=== PATIENT | male | born 1975 ===

== ENCOUNTER 2024-03-29 10:43 | Emergency (ER) | payer MEDICARE, MEDICAID, SELFPAY ==
[2024-03-29] VITALS (7 sets, daily range): BP systolic 110–159; BP diastolic 48–65; PULSE 69–82; RESP 12–20; TEMP 36.4–36.6; O2SAT 95–99; BMI 44.2
--- NOTE | ~2024-03-29 | XR_ITS ---
EXAMINATION: XR CHEST 2:29 PM CLINICAL INFORMATION: Chest pain at physical therapy COMPARISON: None available. TECHNIQUE: AP portable view of the chest was obtained. FINDINGS: No significant abnormality is noted involving the heart, lungs, mediastinum, bony thorax or soft tissues. XR/XR chest 1V IMPRESSION: Unremarkable examination.
--- NOTE | 2024-03-29 10:44 | ECG_ITS ---
Test Reason : chest pain Blood Pressure : / mmHG Vent. Rate : 084 BPM Atrial Rate : 084 BPM P-R Int : 166 ms QRS Dur : 078 ms QT Int : 368 ms P-R-T Axes : 057 -38 058 degrees QTc Int : 434 ms Normal sinus rhythm Left axis deviation Pulmonary disease pattern Septal infarct , age undetermined Abnormal ECG No previous ECGs available Referred By: Generic ED Physician Electronically Signed By:ANDREW LANGE MD
--- NOTE | 2024-03-29 11:04 | PC.NURSE ---
Pt comes to ED today straight from PT. States he began to experience chest pain 2/10 that radiated to his epigastric area. Pt reports feeling better now that he is resting on the stretcher. VSS, A&Ox3, afebrile, skin is warm and dry. Breaths are slow even and unlabored. Awaiting orders. at bedside.
--- NOTE | 2024-03-29 11:35 | PC.NURSE ---
This RN and RODNEY Dickinson attempted to draw blood labs and place IV access. Pt reports highly anxious regrading needles and this was observed at this time. IV access attempted to R hand but unsuccessful. Blood draw attempted to L hand by Wyatt Dickinson, (+) flash but no flow. Pt expressed he was too anxious to for another attempt and requests to stop at this time.
--- NOTE | 2024-03-29 11:39 | MHC.EDTECH ---
This tech along with RN attempted to draw blood from this pt. RN and tech both attempted once and was unsuccessful. Pt the stated I do not want to attempt again right now, giving blood makes me nervous. RN and tech respected pt wishes and stated they would check back later to see if the pt was willing to try again.
--- OUTSIDE RECORDS SUMMARY | 2024-03-29 11:58 | XMS_ITS | Continuity of Care Document ---
Author Organization [facility] Address [address] [place] [id number]- Care Team Providers Care Management Coordinator Name Role Phone Juan Mondragon DO Primary Care Physician Encounter [facility] [place] Date(s): 07/12/23 - 09/04/23 [facility] [address] [place] [id number] Attending Physician: Nazia Sandoval MD Admitting Physician: Nazia Sandoval MD Referring Physician: Juan Mondragon DO Allergies, Adverse Reactions, Alerts Substance Reaction Severity Status doxycycline Rash Active vancomycin Persistent Severe Active Immunizations Given and Recorded Vaccine Date Status Refusal Reason influenza virus vaccine, inactivated 07/08/23 Give n influenza virus vaccine, inactivated 06/24/21 Ross rded influenza virus vaccine, inactivated 06/03/20 Ross rded influenza virus vaccine, inactivated 06/19/19 Ross rded influenza virus vaccine, inactivated 12/17/14 Ross rded influenza virus vaccine, inactivated 09/14/13 Ross rded SARS-CoV-2 (COVID-19) mRNA-1273 vaccine 03/12/22 R ecorded SARS-CoV-2 (COVID-19) mRNA-1273 vaccine 07/09/21 R ecorded SARS-CoV-2 (COVID-19) mRNA-1273 vaccine 12/02/20 R ecorded SARS-CoV-2 (COVID-19) mRNA-1273 vaccine 11/04/20 R ecorded Medications acetaminophen 325 mg oral tablet 650 mg, By Mouth, Every 4 hours, PRN, Temperature Greater than 100.5, Refills 0, Maintenance, Pain , Mild, 07/28/23 16:59:00 EST, Partial fill upon patient request if the prescription is for a schedule II opioid drug. Start Date: 07/28/23 Status: Ordered aspirin 81 mg oral delayed release tablet 81 mg, By Mouth, Daily, # 90 tablet, Refills 0, Tot. Refills 0, Maintenance, 04/15/22 12:39:00 EDT,Route to Pharmacy Electronically, [facility], Partial fill upon patient request if the prescription is for a schedule II opioid drug., 18... Start Date: 04/15/22 Status: Ordered atorvastatin 80 mg oral tablet 1 tablet = 80 mg, By Mouth, Daily, # 90 tablet, 0 Refills, Maintenance, 06/08/23 20:00:00 EDT, Tablet, Partial fill upon patient request if the prescription is for a schedule II opioid drug. Start Date: 06/08/23 Status: Ordered docusate sodium 100 mg oral capsule 1 capsule = 100 mg, By Mouth, 2 times a day, # 20 capsule, 0 Refills, Maintenance, 07/13/23 9:01:00EST, Capsule, [id number], Partial fill upon patient request if the prescription isfor a schedule II opioid drug., 182.88, cm, ... Start Date: 07/13/23 Stop Date: 07/23/23 Status: Ordered Enoxaparin 0.4 mL = 40 mg, Subcutaneous Injection, 2 times a day, 0 Refills, Maintenance, 07/28/23 16:59:00 EST, Injection, Partial fill upon patient request if the prescription is for a schedule II opioid drug. Start Date: 07/28/23 Status: Ordered gabapentin 300 mg oral capsule 300 mg, 1, capsule, By Mouth, 2 times a day, Refills 0, Maintenance, 03/21/22 21:08:00 EDT, Partialfill upon patient request if the prescription is for a schedule II opioid drug. Start Date: 03/21/22 Status: Ordered insulin lispro 100 u/ml subcutaneous injection 20-35 units, Subcutaneous Injection, 3 times a day before meals, << Sliding Scale Comments >> 100 - 149 20 units Call if less than 70 150 - 199 23 units 200 - 249 26 units 250 - 299 29 units 300 - 349 32 units 350 - 399 35 units... Start Date: 07/13/23 Status: Ordered Lantus Inj 0.75 mL = 75 units, Subcutaneous Injection, 2 times a day, 0 Refills, Maintenance, 07/28/23 16:58:00 EST, Injection, Partial fill upon patient request if the prescription is for a schedule II opioid drug. Start Date: 07/28/23 Status: Ordered metoprolol succinate 50 mg oral capsule, extended release 1 capsule = 50 mg, By Mouth, Daily, start on 04/16, # 90 capsule, 0 Refills, Maintenance, 04/15/22 12:40:00 EDT, ER Capsule, [facility], Partial fill upon patient request if the prescription is for a schedule II opioid drug., 183, cm, . Start Date: 04/15/22 Status: Ordered stump software release engineer stump software release engineer, See Instructions, # 1 each, Refills 0, Tot. Refills 0, Maintenance, Dx: left BKA, 09/01/23 10:10:00 EST, Supply Start Date: 09/01/23 Status: Ordered Problem List Condition Confirmation Course Effective Dates Status H ealth Status Informant Gram-positive bacteremia Confirmed Active Bacterial cellulitis Confirmed Active Constipation Confirmed Active CAD (coronary artery disease) Confirmed Active Diabetic foot ulcers Confirmed Active Diabetic foot ulcer Confirmed Active Fever Confirmed Active Hyperglycemia Confirmed Active Hyperglycemia due to diabetes mellitus Confirmed Active HTN (hypertension) Confirmed Active Hyponatremia Confirmed Active Diabetic foot infection Confirmed Active Lactic acid acidosis Confirmed Active STEMI (ST elevation myocardial infarction) Confirmed Active Foot osteomyelitis Confirmed Active Encounter for screening colonoscopy Confirmed Active Sepsis Confirmed Active Severe obesity Confirmed Active 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 Sex Patient Care team information Care Team Personnel Name: Matilda Lowe RN Position: [facility] RN Member Role: Primary Care Nurse Name: Ghazal Ta RN Position: [facility] RN Member Role: Primary Care Nurse Name: Lima Bennett RN Position: [facility] RN Member Role: Primary Care Nurse Name: Karen Farias RN Position: [facility] RN Member Role: Primary Care Nurse Name: Akil Zelaya RN Position: [facility] RN Member Role: Primary Care Nurse Name: Agnes Mccann RN Position: [facility] RN Member Role: Primary Care Nurse Name: Roseann Sullivan RN Position: [facility] RN Member Role: Primary Care Nurse Name: Ebony Victoria NP Position: [facility] Associate Professional Member Role: Lifetime Consulting Provider Address: Address: [address] [place] [address]- Name: Rosalba Ugalde RN Position: S RN Member Role: Primary Care Nurse Name: Juan Mondragon DO Position: [facility] Physician (General Medicine) Member Role: PCP Address: Address: [address] [place] [address]- Name: Eva Holguin Position: [facility] RN Member Role: Primary Care Nurse Name: Federico Conroy RN Position: [facility] RN Member Role: Primary Care Nurse Name: Flori Lilly RN Position: [facility] RN Member Role: Primary Care Nurse Name: Joseline Malin RN Position: [facility] RN Member Role: Primary Care Nurse Name: Madeline Wren RN Position: [facility] RN Member Role: Primary Care Nurse Name: Carmen Gates RN Position: [facility] RN Member Role: Primary Care Nurse Name: Autumn Montgomery RN Position: [facility] RN Member Role: Primary Care Nurse Name: Brittny Luna RN Position: [facility] RN Member Role: Primary Care Nurse Name: Selena Reeves RN Position: S RN Member Role: Primary Care Nurse Care Team Related Persons Name: GABBIE KUO Address: [address] [place] [address] Name: BRANDI KUO
--- OUTSIDE RECORDS SUMMARY | 2024-03-29 11:58 | XMS_ITS | Continuity of Care Document ---
Author Organization [facility] Address [address] [place] [id number]- Care Team Providers Care Front Office Spec Name Role Phone Alanna Juan MENDEZ Primary Care Physician ( [phone] Encounter [facility] Date(s): 10/28/23 - 11/27/23 [facility] [address] [place] [id number]- [place] Allergies, Adverse Reactions, Alerts Substance Reaction Severity [...] opioid drug. Start Date: 07/28/23 Status: Ordered adaptic nonadherent dressing adaptic nonadherent dressing, See Instructions, # 1 each, Refills 0, Tot. Refills 0, Maintenance, place over left leg wound, apply triple antibiotic ointment and dressing daily, 10/12/23 8:30:00 EST,Supply, 182, cm, 10/12/23 8:16:00 EST, Height, 136.... Start Date: 10/12/23 Status: Ordered aspirin 81 mg oral delayed release tablet 81 mg, By Mouth, Daily, # 90 tablet, Refills 0, Tot. Refills 0, Maintenance, 04/15/22 12:39:00 EDT,Route to Pharmacy Electronically, [facility], Partial fill upon patient request [...] capsule, 0 Refills, Maintenance, 07/13/23 9:01:00EST, Capsule, [id number], Partial fill upon patient request if the [...] opioid drug. Start Date: 07/28/23 Status: Ordered left leg prosthesis left leg prosthesis, See Instructions, # 1 each, Refills 0, Tot. Refills 0, Maintenance, Dx: left BKA, K3, 09/14/23 9:58:00 EST, Supply Start Date: 09/14/23 Status: Ordered metoprolol succinate 50 mg oral capsule, extended release 1 capsule = 50 mg, By Mouth, Daily, start on 04/16, # 90 capsule, 0 Refills, Maintenance, 04/15/22 12:40:00 EDT, ER Capsule, [facility], Partial fill upon patient request if the prescription is for a schedule II opioid drug., 183, cm, ... Start Date: 04/15/22 Status: Ordered physical therapy physical therapy, See Instructions, # 1 each, Refills 0, Tot. 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 Sex Patient Care team information Care Team Personnel Name: Matilda Lowe RN Position: [facility] RN Member Role: Primary Care Nurse Name: Ghazal Ta RN Position: [facility] RN Member Role: Primary Care Nurse Name: Lima Bennett RN Position: S RN Member Role: Primary Care Nurse Name: Karen Farias RN Position: [facility] RN Member Role: Primary Care Nurse Name: Akil Zelaya RN Position: [facility] RN Member Role: Primary Care Nurse Name: Agnes Mccann RN Position: [facility] RN Member Role: Primary Care Nurse Name: Roseann Sullivan RN Position: [facility] RN Member Role: Primary Care Nurse Name: Ebony Victoria NP Position: [facility] Associate Professional Member Role: Lifetime Consulting Provider Address: Address: [address] [place] [id number] Name: Rosalba Ugalde RN Position: [facility] RN Member Role: Primary Care Nurse Name: Juan Mondragon DO Position: [facility] Physician (General Medicine) Member Role: PCP Address: Address: [address] [place] [id number] Name: Eva Holguin Position: [facility] RN Member Role: Primary Care Nurse Name: Federico Conroy RN Position: [facility] RN Member Role: Primary Care Nurse Name: Flori Lilly RN Position: [facility] RN Member Role: Primary Care Nurse Name: Joseline Malin RN Position: [facility] RN Member Role: Primary Care Nurse Name: Madeline Wren RN Position: [facility] RN Member Role: Primary Care Nurse Name: Autumn Montgomery RN Position: [facility] RN Member Role: Primary Care Nurse Name: Brittny Luna RN Position: [facility] RN Member Role: Primary Care Nurse Name: Selena Reeves RN Position: [facility] RN Member Role: Primary Care Nurse Care Team Related Persons Name: GABBIE KUO Address: [address] [place] [address] UM Name: BRANDI KUO
--- OUTSIDE RECORDS SUMMARY | 2024-03-29 11:58 | XMS_ITS | Continuity of Care Document ---
Author Organization [facility] Address [address] [place] [id number]- Care Team Providers Care Roustabout Crew Pusher Name Role Phone Alanna MENDEZJuan Amparo Primary Care Physician Encounter [facility] [place] Date(s): 08/05/23 - 09/04/23 [facility] [address] [place] [id number] Attending Physician: Deb Barber Admitting Physician: Admtr, Deb Referring Physician: Admtr, Ar8 Allergies, Adverse Reactions, Alerts Substance Reaction Severity [...] Maintenance, 04/15/22 12:39:00 EDT,Route to Pharmacy Electronically, [facility], Partial fill upon patient request [...] capsule, 0 Refills, Maintenance, 07/13/23 9:01:00EST, Capsule, [id number], Partial fill upon patient request if the [...] Refills, Maintenance, 04/15/22 12:40:00 EDT, ER Capsule, [facility], Partial fill upon patient request if the prescription is for a schedule II opioid drug., 183, cm, .. Start Date: 04/15/22 Status: Ordered stump install and repair technician stump install and repair technician, See Instructions, # 1 each, Refills 0, [...] Team Personnel Name: Matilda Lowe RN Position: [facility] RN Member Role: Primary Care Nurse Name: Ghazal Ta RN Position: [facility] RN Member Role: Primary Care Nurse Name: Lima Bennett RN Position: [facility] RN Member Role: Primary Care Nurse Name: Karen Farias RN Position: [facility] RN Member Role: Primary Care Nurse Name: Akil Zelaya RN Position: [facility] RN Member Role: Primary Care Nurse Name: Agnes Mccann RN Position: S RN Member Role: Primary Care Nurse Name: Roseann Sullivan RN Position: S RN Member Role: Primary Care Nurse Name: Ebony Victoria NP Position: [facility] Associate Professional Member Role: Lifetime Consulting Provider Address: Address: [address] [place] [address]- Name: Rosalba Ugalde RN Position: S RN Member Role: Primary Care Nurse Name: Juan Mondragon DO Position: [facility] Physician (General Medicine) Member Role: PCP Address: Address: [address] [place] [address]- Name: Eva Holguin Position: S RN Member Role: Primary Care Nurse Name: Federico Conroy RN Position: [facility] RN Member Role: Primary Care Nurse Name: Flori Lilly RN Position: [facility] RN Member Role: Primary Care Nurse Name: Joseline Malin RN Position: [facility] RN Member Role: Primary Care Nurse Name: Madeline Wren RN Position: [facility] RN Member Role: Primary Care Nurse Name: Carmen Gates RN Position: [facility] RN Member Role: Primary Care Nurse Name: Autumn Montgomery RN Position: S RN Member Role: Primary Care Nurse Name: Brittny Luna RN Position: [facility] RN Member Role: Primary Care Nurse Name: Selena Reeves RN Position: S RN Member Role: Primary Care Nurse Care Team Related Persons Name: GABBIE KUO Address: [address] [place] [address] Name: BRANDI KUO
--- OUTSIDE RECORDS SUMMARY | 2024-03-29 11:58 | XMS_ITS | Continuity of Care Document ---
Author Organization [facility] Address [address] [place] [id number]- Care Team Providers Care Investment Recovery Technician Name Role Phone Nate Mondragon DOchazbaldo Christensen Primary Care Physician ( [phone] Encounter [facility] Date(s): 10/12/23 - 10/19/23 [facility] [address] [place] [address]- Attending Physician: Not on Staff, Attending MD Allergies, Adverse Reactions, Alerts Substance Reaction Severity [...] Maintenance, 04/15/22 12:39:00 EDT,Route to Pharmacy Electronically, [facility], Partial fill upon patient request [...] capsule, 0 Refills, Maintenance, 07/13/23 9:01:00EST, Capsule, [facility][id number], Partial fill upon patient request if the [...] Refills, Maintenance, 04/15/22 12:40:00 EDT, ER Capsule, [facility], Partial fill upon patient request if the prescription is for a schedule II opioid drug., 183, cm, ... Start Date: 04/15/22 Status: Ordered physical therapy physical therapy, See Instructions, # 1 each, Refills 0, Tot. Refills 0, Maintenance, left BKA, gait and balance training using prosthesis, 09/14/23 9:58:00 EST, Supply Start Date: 09/14/23 Status: Ordered stump american studies professor stump american studies professor, See Instructions, # 1 each, Refills 0, [...] T2DM (type 2 diabetes mellitus) Confirmed Active Vital Signs Most recent to oldest [Reference Range]: 1 Height 182 cm (10/12/23 8:16 AM) Weight 91.81 kg (10/12/23 8:16 AM) Oxygen Saturation [94-100 %] 97 % (10/12/23 8:16 AM) Pulse Rate [55-90 bpm] 71 bpm (10/12/23 8:16 AM) Body Mass Index [18.5-24.99 kg/m2] 27.72 kg/m2 *H* (10/12/23 8:16 AM) Blood Pressure [90-138/55-84 mm Hg] 102/ 60mm Hg (10/12/23 8:16 AM) Mode of Delivery (Oxygen) Room air (10/12/23 8:16 AM) Blood pressure sites Arm, left (10/12/23 8:16 AM) Weight Obtained Via Patient/family state d (10/12/23 8:16 AM) Social History Social History Type Response Tobacco Use: pt denies. Sex Note * Sarah Leal: PERFORM, SIGN, VERIFY Event Display: Patient Education/Instruction Authored Date: [id number] [facility] *[facility] [address] Clinical Summary Name MARINO KUO Age 48 Years 1975 PCP Juan Mondragon DO PCP Visit Date 10/12/2023 08:04:00 Additional Instructions: Scheduled Appointments?? Future Appointments ?[facility] ?Phone:??--?Fax:??-- ?Appt. Date:??10/27/2023?8:15 AM ?Scheduled Provider:??Jim Nelson MD Follow-Up Instructions ?? With: Address: When: As Needed Diagnosis Medications: Please continue your medications until treatment is completed or stopped by your provider. Discuss any questions related to medications with your provider. New Medications [id number], [address], [place] [id number], [phone] Miscellaneous Rx (adaptic nonadherent dressing) place over left leg wound, apply triple antibiotic ointment and dressing daily. Refills: 0. Next Dose: Medications to Continue with No Changes These medications were not printed or sent to your pharmacy Acetaminophen (acetaminophen 325 mg oral tablet) 650 Milligram Oral every 4 hours as needed Pain , Mild. Temperature Greater than 100.5. Next Dose: Aspirin (aspirin 81 mg oral delayed release tablet) 81 Milligram Oral Daily. Refills: 0. Next Dose: Atorvastatin (atorvastatin 80 mg oral tablet) 1 tab(s) Oral Daily. Next Dose: Docusate (docusate sodium 100 mg oral capsule) 1 capsule Oral twice a day for 10 Days. Refills: 0. Next Dose: Enoxaparin 40 Milligram Subcutaneous Injection twice a day. Next Dose: Gabapentin (gabapentin 300 mg oral capsule) 1 capsule Oral twice a day. Next Dose: Insulin Glargine (Lantus Inj) 75 unit(s) Subcutaneous Injection twice a day. Next Dose: Insulin Lispro (insulin lispro 100 u/ml subcutaneous injection) 20-35 units Subcutaneous Injection 3 times a day before meals. << Sliding Scale Comments >> 100 - 149 20 units Call if less than 70 150 - 199 23 units 200 - 249 26 units 250 - 299 29 units 300 - 349 32 units 350 - 399 35 units Call if greater than 400 << Sliding Scale Comments >>. Next Dose: Metoprolol (metoprolol succinate 50 mg oral capsule, extended release) 1 capsule Oral Daily. start on 04/16. Refills: 0. Next Dose: Miscellaneous Rx (left leg prosthesis) Dx: left BKA, K3. Refills: 0. Next Dose: Miscellaneous Rx (physical therapy) left BKA, gait and balance training using prosthesis. Refills: 0. Next Dose: Miscellaneous Rx (stump american studies professor) Dx: left BKA. Refills: 0. Next Dose: Allergy Info:?? vancomycin; doxycycline Medications Given This Visit Future Orders ?No future orders Vital Signs Height 182 cm Weight 91.81 kg BMI 27.72 kg/m2 Blood Pressure 102 mm Hg/60 mm Hg Temperature Pulse Rate 71 bpm Respiratory Rate 02 Sat Mode of Delivery 97 %/Room air You can now view a summary of your hospital visit from the comfort of your home through a free online portal called [employer]. [employer] is a website that allows you to securely view your medical information including discharge summary, medications and follow-up visits. ??You can alsosend a secure electronic message to your doctor???s office to request appointments, renew medications or just ask a question. You can enroll at [email or web address] or register during your next office visit. Disclaimer:?? The information provided is of a general nature and is intended to be used in conjunction with the recommendations and advice of your health care practitioner. ??Every effort has been made to ensure that the information provided is accurate and complete at the time it is provided to you however, as your needs change, or, as new ??information becomes available, different or additional instructions may be required. If you have questions, please consult with your primary care provider or pharmacist, as appropriate. ??This information is not intended to serve as substitution for assessment and evaluation by a qualified health care provider. If you do not have a primary care provider, you may find a [facility] provider by calling [facility] Link at [phone]. [facility], in keeping with [facility] guidance, no longer requires face masks for staff, patientsor visitors in most situations. Similar to time spent indoors at other locations, there is the chance that you were exposed to respiratory viruses during your time with us (such as flu or COVID-19).? If you develop symptoms concerning for a viral respiratory infection, please seek testing (and treatment if indicated) from your medical provider or home test kit. For information about the plan of care including goals and instructions for your diagnosis, please see the patient education orders section of this document. Patient Education Materials?? The content of this educational material or handout may have been modified, supplemented, or adapted from its original content and format to support your individualized medical care. Patient Care team information Care Team Personnel Name: Matilda Lowe RN Position: [facility] RN Member Role: Primary Care Nurse Name: Ghazal Ta RN Position: [facility] RN Member Role: Primary Care Nurse Name: Lima Bennett RN Position: [facility] RN Member Role: Primary Care Nurse Name: Karen Farias RN Position: [facility] RN Member Role: Primary Care Nurse Name: Akil Zelaya RN Position: [facility] RN Member Role: Primary Care Nurse Name: Agnes Mccann RN Position: [facility] RN Member Role: Primary Care Nurse Name: Roseann Sullivan RN Position: [facility] RN Member Role: Primary Care Nurse Name: Ebony Victoria NP Position: [facility] Associate Professional Member Role: Lifetime Consulting Provider Address: Address: [address] [place] [address]- Name: Rosalba Ugalde RN Position: [facility] RN Member Role: Primary Care Nurse Name: Juan Mondragon DO Position: [facility] Physician (General Medicine) Member Role: PCP Address: Address: [address] [place] [address] Name: Eva Holguin Position: S RN Member Role: Primary Care Nurse Name: Federico Conroy RN Position: S RN Member Role: Primary Care Nurse Name: Flori Lilly RN Position: S RN Member Role: Primary Care Nurse Name: Joseline Malin RN Position: S RN Member Role: Primary Care Nurse Name: Madeline Wren RN Position: S RN Member Role: Primary Care Nurse Name: Autumn Montgomery RN Position: S RN Member Role: Primary Care Nurse Name: Brittny Luna RN Position: S RN Member Role: Primary Care Nurse Name: Selena Reeves RN Position: S RN Member Role: Primary Care Nurse Care Team Related Persons Name: GABBIE KUO Address: home [address] [place] [id number] Name: BRANDI KUO
--- OUTSIDE RECORDS SUMMARY | 2024-03-29 11:58 | XMS_ITS | Continuity of Care Document ---
Author Organization [facility] Address [address] [place] [address]- Care Team Providers Care Power Generation Equipment Repairer Name Role Phone Juan Mondragon DO Primary Care Physician ( [phone] [place] [facility] [place]): [place]23 - 09/08/23 [facility] [address] [place] [id number] Attending Physician: Shantelle DIALLO, Nan Means Admitting Physician: Shantelle DIALLO, Nan Means Referring Physician: Juan Mondragon DO Allergies, Adverse [...] Maintenance, 04/15/22 12:39:00 EDT,Route to Pharmacy Electronically, [facility], Partial fill upon patient request [...] capsule, 0 Refills, Maintenance, 07/13/23 9:01:00EST, Capsule, [facility][id number], Partial fill upon patient request if the [...] Refills, Maintenance, 04/15/22 12:40:00 EDT, ER Capsule, [facility], Partial fill upon patient request if the prescription is for a schedule II opioid drug., 183, cm, .. Start Date: 04/15/22 Status: Ordered stump mixer whipped topping stump mixer whipped topping, See Instructions, # 1 each, Refills 0, [...] oldest [Reference Range]: 1 Height 182 cm (09/01/23 9:53 AM) Weight 136.2 kg (09/01/23 9:53 AM) Oxygen Saturation [94-100 %] 97 % (09/01/23 9:53 AM) Pulse Rate [55-90 bpm] 71 bpm (09/01/23 9:53 AM) Body Mass Index [18.5-24.99 kg/m2] 41.12 kg/m2 *>HHI* (09/01/23 9:53 AM) Blood Pressure [90-138/55-84 mm Hg] 90/5 0mm Hg (09/01/23 9:53 AM) Mode of Delivery (Oxygen) Room air (09/01/23 9:53 AM) Blood pressure sites Arm, left (09/01/23 9:53 AM) Weight Obtained Via Patient/family state d (09/01/23 9:53 AM) Social History Social History Type Response Tobacco Use: pt denies. Sex Note * Jim Geller: PERFORM, SIGN, VERIFY Event Display: Patient Education/Instruction Authored Date: [id number] [facility] *[facility] [address] Clinical Summary Name MARINO KUO Age 48 Years 1975 PCP Juan Mondragon DO PCP Visit Date 09/01/2023 09:30:00 Additional Instructions: Scheduled Appointments?? Future Appointments ?*[facility],??[address] ?Phone:??--?Fax:??-- ?Appt. Date:??09/14/2023?9:30 AM ?Scheduled Provider:??Nan Pepper NP ?[facility] ?Phone:??--?Fax:??-- ?Appt. Date:??10/27/2023?8:15 AM ?Scheduled Provider:??Jim Nelson MD Follow-Up Instructions ?? With: Address: When: Nan Pepper NP Comments: 2??weeks with wound check Diagnosis Medications: Please continue your medications until treatment is completed or stopped by your provider. Discuss any questions related to medications with your provider. New Medications - Miscellaneous Rx (stump mixer whipped topping) Dx: left BKA. Refills: 0. Next Dose: Medications to Continue [...] start on 04/16. Refills: 0. Next Dose: Allergy Info:?? vancomycin; doxycycline Medications Given This Visit Future Orders ?No future orders Vital Signs Height 182 cm Weight 136.2 kg BMI 41.12 kg/m2 Blood Pressure 90 mm Hg/50 mm Hg Temperature Pulse Rate 71 bpm Respiratory Rate 02 Sat Mode of Delivery 97 %/Room air You can now view a summary of your hospital visit from the comfort of your home through a free online portal called [employer]. [employer] is a website that allows you to securely view your medical information including discharge summary, medications and follow-up visits. ??You can alsosend a secure electronic message to your doctor???s office to request appointments, renew medications or just ask a question. You can enroll at [email or web address] or register during your next office visit. [...] primary care provider, you may find a [facility] provider by calling [facility] Link at [phone]. [facility], in keeping with [facility] guidance, no longer requires face masks [...] Member Role: Lifetime Consulting Provider Address: Address: [address] [place] [address] Name: Rosalba Ugalde RN Position: [facility] RN Member Role: Primary Care Nurse Name: Juan Mondragon DO Position: [facility] Physician (General Medicine) Member Role: PCP Address: Address: [address] [place] [address] Name: Eva Holguin Position: [facility] RN Member Role: Primary Care Nurse Name: Federico Conroy RN Position: [facility] RN Member Role: Primary Care Nurse Name: Flori Lilly RN Position: [facility] RN Member Role: Primary Care Nurse Name: Joseline Malin RN Position: [facility] RN Member Role: Primary Care Nurse Name: Madeline Wren RN Position: [facility] RN Member Role: Primary Care Nurse Name: Carmen Gates RN Position: [facility] RN Member Role: Primary Care Nurse Name: Autumn Montgomery RN Position: [facility] RN Member Role: Primary Care Nurse Name: Brittny Luna RN Position: [facility] RN Member Role: Primary Care Nurse Name: Selena Reeves RN Position: S RN Member Role: Primary Care Nurse Care Team Related Persons Name: GABBIE KUO Address: [address] [address] Name: BRANDI KUO
--- OUTSIDE RECORDS SUMMARY | 2024-03-29 11:58 | XMS_ITS | Continuity of Care Document ---
Author Organization [facility] Address [address] [place] [address]- Care Team Providers Care Battery Repairer Name Role Phone Juan Mondragon DO Primary Care Physician ( [phone] Encounter 06/22/23 - 09/22/23 [facility] Visiting Nurse [facility] [address] [place] [address]- Discharge Disposition: GOALS [facility] Allergies, Adverse Reactions, Alerts Substance Reaction Severity [...] Maintenance, 04/15/22 12:39:00 EDT,Route to Pharmacy Electronically, [facility], Partial fill upon patient [...] capsule, 0 Refills, Maintenance, 07/13/23 9:01:00EST, Capsule, [facility][id number], Partial fill upon patient request if the [...] Refills, Maintenance, 04/15/22 12:40:00 EDT, ER Capsule, [facility], Partial fill upon patient request if the prescription is for a schedule II opioid drug., 183, cm, .. Start Date: 04/15/22 Status: Ordered physical therapy physical therapy, See Instructions, # 1 each, Refills 0, Tot. Refills 0, Maintenance, left BKA, gait and balance training using prosthesis, 09/14/23 9:58:00 EST, Supply Start Date: 09/14/23 Status: Ordered stump farmworker stump farmworker, See Instructions, # 1 each, Refills 0, [...] Team Personnel Name: Matilda Lowe RN Position: S RN Member Role: Primary Care Nurse Name: Ghazal Ta RN Position: S RN Member Role: Primary Care Nurse Name: Lima Bennett RN Position: S RN Member Role: Primary Care Nurse Name: Karen Farias RN Position: [facility] RN Member Role: Primary Care Nurse Name: Akil Zelaya RN Position: [facility] RN Member Role: Primary Care Nurse Name: Agnes Mccann RN Position: S RN Member Role: Primary Care Nurse Name: Roseann Sullivan RN Position: S RN Member Role: Primary Care Nurse Name: Ebony Victoria NP Position: [facility] Associate Professional Member Role: Lifetime Consulting Provider Address: Address: [address] [place], [place] [address] Name: Rosalba Ugalde RN Position: [facility] RN Member Role: Primary Care Nurse Name: Juan Mondragon DO Position: [facility] Physician (General Medicine) Member Role: PCP Address: Address: [address] [place], [place] [address] Name: Eva Holguin Position: [facility] RN Member Role: Primary Care Nurse Name: Federico Conroy RN Position: [facility] RN Member Role: Primary Care Nurse Name: Flori Lilly RN Position: [facility] RN Member Role: Primary Care Nurse Name: Joseline Malin RN Position: [facility] RN Member Role: Primary Care Nurse Name: Madeline Wren RN Position: [facility] RN Member Role: Primary Care Nurse Name: Autumn Montgomery RN Position: [facility] RN Member Role: Primary Care Nurse Name: Brittny Luna RN Position: [facility] RN Member Role: Primary Care Nurse Name: Selena Reeves RN Position: [facility] RN Member Role: Primary Care Nurse Care Team Related Persons Name: GABBIE KUO Address: home [address] [place] [address] UM Name: BRANDI KUO
--- OUTSIDE RECORDS SUMMARY | 2024-03-29 11:58 | XMS_ITS | Continuity of Care Document ---
Author Organization [facility] Address [address] [place] [address]- Care Team Providers Care Principal Librarian Name Role Phone Alanna MENDEZJuan Amparo Primary Care Physician [place] [facility] [place]17/23 - 07/17/[address] [address] Attending Physician: Not on Staff, Attending MD Admitting Physician: Not on Staff, Admitting MD Referring Physician: Not on Staff, Referring MD Allergies, Adverse Reactions, Alerts Substance Reaction [...] (COVID-19) mRNA-1273 vaccine 11/04/20 R ecorded Medications aspirin 81 mg oral delayed release tablet 81 mg, By Mouth, Daily, # 90 tablet, Refills 0, Tot. Refills 0, Maintenance, 04/15/22 12:39:00 EDT,Route to Pharmacy Electronically, [facility], Partial fill upon patient [...] capsule, 0 Refills, Maintenance, 07/13/23 9:01:00EST, Capsule, [facility][id number], Partial fill upon patient request if the prescription isfor a schedule II opioid drug., 182.88, cm, ... Start Date: 07/13/23 Stop Date: 07/23/23 Status: Ordered gabapentin 300 mg oral capsule [...] Start Date: 07/13/23 Status: Ordered Lantus Inj 0.42 mL = 42 units, Subcutaneous Injection, 2 times a day, 0 Refills, Maintenance, 07/13/23 9:01:00EST, Injection, Partial fill upon patient request if the prescription is for a schedule II opioid drug. Start Date: 07/13/23 Status: Ordered levoFLOXacin 750 mg oral tablet = 750 mg, By Mouth, Every 24 hours, for 6 week(s), # 42 tablet, 0 Refills, Acute 08/24/23 9:01:00 EST, 07/13/23 9:01:00 EST, Tablet, [facility][id number], Partial fill upon patient request if the prescription is for a schedule II opioid drug.,... Start Date: 07/13/23 Stop Date: 08/24/23 Status: Ordered metoprolol succinate 50 mg oral capsule, extended release 1 capsule = 50 mg, By Mouth, Daily, start on 04/16, # 90 capsule, 0 Refills, Maintenance, 04/15/22 12:40:00 EDT, ER Capsule, [facility], Partial fill upon patient request if the prescription is for a schedule II opioid drug., 183, cm, ... Start Date: 04/15/22 Status: Ordered oxyCODONE 5 mg oral tablet 5 mg, By Mouth, Every 4 hours, PRN, for 5 days, # 30 tablet, Refills 0, Tot. Refills 0, Acute 07/18/23 9:01:00 EST, Pain , Moderate, 07/13/23 9:01:00 EST, Route to Pharmacy Electronically, [facility] #[id number], Partial fill upon patient request... Start Date: 07/13/23 Stop Date: 07/18/23 Status: Ordered sodium hypochlorite 0.0125% topical solution See Instructions, Topically daily, # 473 mL, 0 Refills, Acute 08/22/23 23:59:00 EST, 07/13/23 9:01:00 EST, Solution, [facility] #[id number], Partial fill upon patient request if the prescriptionis for a schedule II opioid drug., Topically daily,... Start Date: 07/13/23 Stop Date: 08/22/23 Status: Ordered Tylenol 325 mg oral tablet 975 mg, By Mouth, Every 6 hours, Refills 0, Maintenance, 07/13/23 9:01:00 EST, Partial fill upon patient request if the prescription is for a schedule II opioid drug. 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 Sex Patient Care team information Care Team Personnel Name: Matilda Lowe RN Position: [facility] RN Member Role: Primary Care Nurse Name: Karen Farias RN Position: S RN Member Role: Primary Care Nurse Name: Akil Zelaya RN Position: [facility] RN Member Role: Primary Care Nurse Name: Agnes Mccann RN Position: [facility] RN Member Role: Primary Care Nurse Name: Roseann Sullivan RN Position: [facility] RN Member Role: Primary Care Nurse Name: Ebony Victoria NP Position: [facility] Associate Professional Member Role: Lifetime Consulting Provider Address: Address: [address] [place] [address] Name: Rosalba Ugalde RN Position: [facility] RN Member Role: Primary Care Nurse Name: Juan Mondragon DO Position: [facility] Physician (General Medicine) Member Role: PCP Address: Address: [address] [place] [address] Name: Eva Holguin Position: [facility] RN Member Role: Primary Care Nurse Name: Flori Lilly RN Position: [facility] RN Member Role: Primary Care Nurse Name: Madeline Wren RN Position: [facility] RN Member Role: Primary Care Nurse Name: Izabel Guy RN Position: [facility] RN Member Role: Primary Care Nurse Name: Carmen Gates RN Position: [facility] RN Member Role: Primary Care Nurse Name: Autumn Montgomery RN Position: [facility] RN Member Role: Primary Care Nurse Name: Brittny Luna RN Position: [facility] RN Member Role: Primary Care Nurse Care Team Related Persons Name: GABBIE KUO Address: [address] [place] [address] Name: BRANDI KUO
--- OUTSIDE RECORDS SUMMARY | 2024-03-29 11:58 | XMS_ITS | Continuity of Care Document ---
Author Organization [facility] Address [address] [place] [address]- Care Team Providers Care Sales And Retail Management Recruiter Name Role Phone Alanna MENDEZ Juan Amparo Primary Care Physician En[place] [facility] [place](s): 10/12/23 - 11/11/23 [facility] [address] [place] [address]- Allergies, Adverse Reactions, Alerts Substance Reaction Severity [...] Maintenance, 04/15/22 12:39:00 EDT,Route to Pharmacy Electronically, [facility], Partial fill upon patient [...] capsule, 0 Refills, Maintenance, 07/13/23 9:01:00EST, Capsule, [facility][id number], Partial fill upon patient request if the [...] Refills, Maintenance, 04/15/22 12:40:00 EDT, ER Capsule, [facility], Partial fill upon patient request if the prescription is for a schedule II opioid drug., 183, cm, ... Start Date: 04/15/22 Status: Ordered physical therapy physical therapy, See Instructions, # 1 each, Refills 0, Tot. Refills 0, Maintenance, left BKA, gait and balance training using prosthesis, 09/14/23 9:58:00 EST, Supply Start Date: 09/14/23 Status: Ordered stump procurement technician stump procurement technician, See Instructions, # 1 each, Refills [...] Team Personnel Name: Matilda Lowe RN Position: [facility] RN Member Role: Primary Care Nurse Name: Ghazal Ta RN Position: S RN Member Role: Primary Care Nurse Name: Lima Bennett RN Position: [facility] RN Member Role: Primary Care Nurse Name: Karen Farias RN Position: S RN Member Role: Primary Care Nurse Name: Akil Zelaya RN Position: [facility] RN Member Role: Primary Care Nurse Name: Agnes Mccann RN Position: [facility] RN Member Role: Primary Care Nurse Name: Roseann Sullivan RN Position: [facility] RN Member Role: Primary Care Nurse Name: Ebony Victoria NP Position: [facility] Associate Professional Member Role: Lifetime Consulting Provider Address: Address: [address] [place] [id number] Name: Rosalba Ugalde RN Position: [facility] RN Member Role: Primary Care Nurse Name: Juan Mondragon DO Position: [facility] Physician (General Medicine) Member Role: PCP Address: Address: [address] [place] [id number] Name: Eva Holguin Position: [facility] RN Member Role: Primary Care Nurse Name: Federico Conroy RN Position: [facility] RN Member Role: Primary Care Nurse Name: Flori Lilly RN Position: [facility] RN Member Role: Primary Care Nurse Name: Joseline Malin RN Position: [facility] RN Member Role: Primary Care Nurse Name: Madeline Wren RN Position: [facility] RN Member Role: Primary Care Nurse Name: Autumn Montgomery RN Position: [facility] RN Member Role: Primary Care Nurse Name: Brittny Luna RN Position: [facility] RN Member Role: Primary Care Nurse Name: Selena Reeves RN Position: [facility] RN Member Role: Primary Care Nurse Care Team Related Persons Name: GABBIE KUO Address: home [address] [place] [address] UM Name: BRANDI KUO
--- OUTSIDE RECORDS SUMMARY | 2024-03-29 11:59 | XMS_ITS | Continuity of Care Document ---
Author Organization [facility] Address [address] [place] [address]- Care Team Providers Care Auto Finance Sales Rep Name Role Phone Juan Mondragon DO Primary Care Physician Encounter [facility] [place] Date(s): 07/06/23 - 07/13/23 [facility] [address] [place], [place] [address] Attending Physician: Shila Carney NP Admitting Physician: Shila Carney NP Allergies, Adverse Reactions, Alerts Substance Reaction Severity [...] Maintenance, 04/15/22 12:39:00 EDT,Route to Pharmacy Electronically, [facility], Partial fill upon patient request [...] capsule, 0 Refills, Maintenance, 07/13/23 9:01:00EST, Capsule, [facility][id number], Partial fill upon patient request if the [...] 08/24/23 9:01:00 EST, 07/13/23 9:01:00 EST, Tablet, [facility][id number], Partial fill upon patient request if the prescription is for a schedule II opioid drug.,... Start Date: 07/13/23 Stop Date: 08/24/23 Status: Ordered metoprolol succinate 50 mg oral capsule, extended release 1 capsule = 50 mg, By Mouth, Daily, start on 04/16, # 90 capsule, 0 Refills, Maintenance, 04/15/22 12:40:00 EDT, ER Capsule, [facility], Partial fill upon patient request if the prescription is for a schedule II opioid drug., 183, cm, ... Start Date: 04/15/22 Status: Ordered oxyCODONE 5 mg oral tablet 5 mg, By Mouth, Every 4 hours, PRN, for 5 days, # 30 tablet, Refills 0, Tot. Refills 0, Acute 07/18/23 9:01:00 EST, Pain , Moderate, 07/13/23 9:01:00 EST, Route to Pharmacy Electronically, [facility] #[id number], Partial fill upon patient request... Start Date: 07/13/23 Stop Date: 07/18/23 Status: Ordered sodium hypochlorite 0.0125% topical solution See Instructions, Topically daily, # 473 mL, 0 Refills, Acute 08/22/23 23:59:00 EST, 07/13/23 9:01:00 EST, Solution, [facility] #[id number], Partial fill upon patient request if the [...] Condition Confirmation Course Effective Dates Status H ealt Status Informant Bacterial cellulitis Confirmed Active Constipation Confirmed Active Diabetic foot ulcers Confirmed Active Fever Confirmed Active Hyperglycemia due to diabetes mellitus Confirmed Active Hyponatremia Confirmed Active Diabetic foot infection Confirmed Active Lactic acid acidosis Confirmed Active STEMI (ST elevation myocardial infarction) Confirmed Active Encounter for screening colonoscopy Confirmed Active Severe obesity Confirmed Active 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 Sex Note * Jim Geller: PERFORM, SIGN, VERIFY Event Display: Patient Education/Instruction Authored Date: [id number] [facility] [address] Clinical Summary Name MARINO KUO Age 48 Years 1975 PCP Juan Mondragon DO PCP Visit Date 07/06/2023 09:13:00 Additional Instructions: Scheduled Appointments?? Future Appointments ?[facility]Center ?Phone:??--?Fax:??-- ?Appt. Date:??10/27/2023?8:00 AM ?Scheduled Provider:??Jim Nelson MD Follow-Up Instructions ?? With: Address: When: Shila Carney NP 01/20/2023 12:00 AM Comments: Admit patient today??diabetic foot infection with open wound?left foot ??Patient being admitted please cancel his office visit here for this Tuesday since he is going intothe hospital Diagnosis Medications: Please continue your medications until treatment is completed or stopped by your provider. Discuss any questions related to medications with your provider. Medications to Continue with No Changes These medications were not printed or sent to your pharmacy Aspirin (aspirin 81 mg oral delayed release tablet) 81 Milligram Oral Daily. Refills: 0. Next Dose: Atorvastatin (atorvastatin 80 mg oral tablet) 1 tab(s) Oral Daily. Next Dose: Gabapentin (gabapentin 300 mg oral capsule) 1 capsule Oral twice a day. Next Dose: Insulin Glargine (Lantus Inj) 36 unit(s) Subcutaneous Injection Daily at Bedtime. Next Dose: Insulin Glargine (Lantus Inj) 32 unit(s) Subcutaneous Injection Daily in the morning. Next Dose: Insulin Lispro 20-44 units Subcutaneous Injection 3 times a day before meals. << Sliding Scale Comments >> 80 - 129 20 units Call if less than 70 130 - 179 24 units 180 - 229 28 units 230 - 279 32 units 280 - 329 36 units 330 - 379 40 units 380 - 429 44 units Call if greater than 400 << Sliding Scale Comments >>. Next Dose: Metoprolol (metoprolol succinate 50 mg oral capsule, extended release) 1 capsule Oral Daily. start on 04/16. Refills: 0. Next Dose: Allergy Info:?? vancomycin; doxycycline Medications Given This Visit Future Orders ?No future orders Vital Signs Height 184 cm Weight 138.8 kg BMI 41 kg/m2 Blood Pressure 130 mm Hg/70 mm Hg Temperature Pulse Rate 85 bpm Respiratory Rate 02 Sat Mode of Delivery 98 %/ You can now view a summary of your hospital visit from the comfort of your home through a free online portal called [employer]. [employer] is a website that allows you to securely view your medical information including discharge summary, medications and follow-up visits. ??You can alsosend a secure electronic message to your doctor???s office to request appointments, renew medications or just ask a question. You can enroll at [email or web address] or register during your next office [...] primary care provider, you may find a [facility] provider by calling [facility] Link at [phone]. [facility], in keeping with [facility] guidance, no longer requires face masks for [...] Care Nurse Name: Akil Zelaya RN Position: [facility] RN Member Role: Primary Care Nurse Name: Agnes Mccann RN Position: S RN Member Role: Primary Care Nurse Name: Roseann Sullivan RN Position: S RN Member Role: Primary Care Nurse Name: Ebony Victoria NP Position: [facility] Associate Professional Member Role: Lifetime Consulting Provider Address: Address: [address] [place] [id number] Name: Rosalba Ugalde RN Position: [facility] RN Member Role: Primary Care Nurse Name: Juan Mondragon DO Position: [facility] Physician (General Medicine) Member Role: PCP Address: Address: [address] [place] [id number] Name: Eva Holguin Position: [facility] RN Member Role: Primary Care Nurse Name: Flori Lilly RN Position: [facility] RN Member Role: Primary Care Nurse Name: Madeline Wren RN Position: [facility] RN Member Role: Primary Care Nurse Name: Izabel Guy RN Position: [facility] RN Member Role: Primary Care Nurse Name: Carmen Gates RN Position: [facility] RN Member Role: Primary Care Nurse Name: Autumn Montgomery RN Position: [facility] RN Member Role: Primary Care Nurse Name: Brittny Luna RN Position: [facility] RN Member Role: Primary Care Nurse Care Team Related Persons Name: SHIELA GABBIE Address: home [address] [place] [address] UM Name: BRANDI KUO
--- OUTSIDE RECORDS SUMMARY | 2024-03-29 11:59 | XMS_ITS | Continuity of Care Document ---
Author Organization [facility] Address [address] [place] [address]- Care Team Providers Care Jigger Operator Name Role Phone Juan Mondragon DO Primary Care Physician Encounter [facility] Date(s): 08/10/22 - 09/09/22 [facility] [address] [place] [id number]- [place] Allergies, Adverse Reactions, Alerts Substance Reaction Severity Status vancomycin Persistent Severe Active Immunizations Given and Recorded Vaccine Date Status Refusal Reason SARS-CoV-2 (COVID-19) mRNA-1273 vaccine 03/12/22 R ecorded SARS-CoV-2 (COVID-19) mRNA-1273 vaccine 07/09/21 R ecorded SARS-CoV-2 (COVID-19) mRNA-1273 vaccine 12/02/20 R ecorded SARS-CoV-2 (COVID-19) mRNA-1273 vaccine 11/04/20 R ecorded influenza virus vaccine, inactivated 06/24/21 Ross rded influenza virus vaccine, inactivated 06/03/20 Ross rded influenza virus vaccine, inactivated 06/19/19 Ross rded influenza virus vaccine, inactivated 12/17/14 Ross rded influenza virus vaccine, inactivated 09/14/13 Ross rded Medications aspirin 81 mg oral delayed release tablet 81 mg, By Mouth, Daily, # 90 tablet, Refills 0, Tot. Refills 0, Maintenance, 04/15/22 12:39:00 EDT,Route to Pharmacy Electronically, [facility], Partial fill upon patient request if the prescription is for a schedule II opioid drug., 18... Start Date: 04/15/22 Status: Ordered atorvastatin 40 mg oral tablet 1 tablet = 40 mg, By Mouth, Daily at bedtime, please ask operations tech when to increase to 80mg dosegiven your recent transaminitis, # 90 tablet, 0 Refills, Maintenance, 04/15/22 12:39:00 EDT, Tablet, [facility], Partial fill upon patien... Start Date: 04/15/22 Status: Ordered gabapentin 300 mg oral capsule 300 mg, 1, capsule, By Mouth, 2 times a day, Refills 0, Maintenance, 03/21/22 21:08:00 EDT, Partialfill upon patient request if the prescription is for a schedule II opioid drug. Start Date: 03/21/22 Status: Ordered Insulin Glargine Inj 0.4 mL = 40 units, Subcutaneous Injection, 2 times a day, 0 Refills, Maintenance, 04/15/22 12:38:00EDT, Injection, Partial fill upon patient request if the prescription is for a schedule II opioid drug. Start Date: 04/15/22 Status: Ordered insulin lispro 100 units/mL injectable solution 25-50 units, Subcutaneous Injection, 3 times a day before meals, << Sliding Scale Comments >> 100 - 149 25 units Call if less than 70 150 - 199 30 units 200 - 249 35 units 250 - 299 40 units 300 - 349 45 units 350 - 399 50 units... Start Date: 04/15/22 Status: Ordered MetFORMIN (Eqv-Glucophage XR) 500 mg oral tablet, extended release TAKE 1 TABLET BY MOUTH TWICE DAILY Start Date: 03/21/22 Status: Ordered metoprolol succinate 50 mg oral capsule, extended release 1 capsule = 50 mg, By Mouth, Daily, start on 04/16, # 90 capsule, 0 Refills, Maintenance, 04/15/22 12:40:00 EDT, ER Capsule, [facility], Partial fill upon patient request if the prescription is for a schedule II opioid drug., 183, cm, ... Start Date: 04/15/22 Status: Ordered nystatin topical 153299 u/gm powder 1 application, Topically, 2 times a day, # 15 Gm, 0 Refills, Maintenance, 02/23/21 21:46:00 EDT, Powder, [facility][id number], Partial fill upon patient request if the prescription is for a schedule II opioid drug., 1 application Topically 2 ti... Start Date: 02/23/21 Status: Ordered Plavix 75 mg oral tablet 75 mg, 1, tablet, By Mouth, Daily, # 90 tablet, Refills 0, Tot. Refills 0, Maintenance, 04/15/22 12:39:00 EDT, Route to Pharmacy Electronically, [facility], Partial fill upon patient request if the prescription is for a schedule II opioi... Start Date: 04/15/22 Status: Ordered Problem List Condition Confirmation Course Effective Dates Status H ealth Status Informant Bacterial cellulitis Confirmed Active Diabetic foot ulcers Confirmed Active Fever Confirmed Active Hyperglycemia due to diabetes mellitus Confirmed Active Hyponatremia Confirmed Active Lactic acid acidosis Confirmed Active Severe obesity Confirmed Active Social History Social History Type Response Smoking Status Never (less than 100 in lifetime) entered on: 06/23/20 Sex Patient Care team information Care Team Personnel Name: Radha Amador RN Position: S RN Member Role: Primary Care Nurse Name: Annmarie Winn RN Position: S RN Member Role: Primary Care Nurse Name: Ebony Victoria NP Position: [facility] Associate Professional Member Role: Lifetime Consulting Provider Address: Address: [address] [place] [address]- Name: Dario Lopez RN Position: S RN Supv Member Role: Primary Care Nurse Name: Juan Mondragon DO Position: [facility] Physician (General Medicine) Member Role: PCP Address: Address: [address] [place] [address] Name: Madeline Wren RN Position: S RN Member Role: Primary Care Nurse Name: Safia Kilpatrick RN Position: S RN Supv Member Role: Primary Care Nurse Care Team Related Persons Name: GABBIE KUO Address: home [address] [place] [address] UM
--- OUTSIDE RECORDS SUMMARY | 2024-03-29 11:59 | XMS_ITS | Continuity of Care Document ---
Author Organization [facility] [place] Address [address] [place] [address]- Care Team Providers Care Regulatory Attorney Name Role Phone Alanna MENDEZJuan Amparo Primary Care Physician Encounter [facility] Date(s): 03/22/23 - 04/21/23 [facility] [place] [address] [place], [place] [address] Attending Physician: Admtr, Ar8 Admitting Physician: Admtr, Ar8 Referring Physician: Admtr, Ar8 Allergies, Adverse Reactions, [...] Maintenance, 04/15/22 12:39:00 EDT,Route to Pharmacy Electronically, [facility], Partial fill upon patient request if the prescription is for a schedule II opioid drug., 18... Start Date: 04/15/22 Status: Ordered atorvastatin 40 mg oral tablet 1 tablet = 40 mg, By Mouth, Daily at bedtime, please ask director of partner marketing when to increase to 80mg dosegiven your recent transaminitis, # 90 tablet, 0 Refills, Maintenance, 04/15/22 12:39:00 EDT, Tablet, [facility], Partial fill upon patien... [...] Refills, Maintenance, 04/15/22 12:40:00 EDT, ER Capsule, [facility], Partial fill upon patient request if the prescription is for a schedule II opioid drug., 183, cm, ... Start Date: 04/15/22 Status: Ordered nystatin topical 566113 u/gm powder 1 application, Topically, 2 times a day, # 15 Gm, 0 Refills, Maintenance, 02/23/21 21:46:00 EDT, Powder, [facility] #[id number], Partial fill upon patient request if the prescription is for a schedule II opioid drug., 1 application Topically 2 ti... Start Date: 02/23/21 Status: Ordered PEG-3350 with Electrolytes (Eqv-GoLYTELY) oral powder for reconstitution See Instructions, By Mouth drink 8 oz of prep fluid every 15-20 minutes until it is gone, # 1 each,0 Refills, Maintenance, 03/22/23 14:30:00 EDT, [facility] #[id number], Partial fill upon patient request if the prescription is for a schedule II... Start Date: 03/22/23 Status: Ordered Plavix 75 mg oral tablet 75 mg, 1, tablet, By Mouth, Daily, # 90 tablet, Refills 0, Tot. Refills 0, Maintenance, 04/15/22 12:39:00 EDT, Route to Pharmacy Electronically, [facility], Partial fill upon patient [...] Confirmed Active Lactic acid acidosis Confirmed Active Encounter for screening colonoscopy Confirmed Active Severe obesity Confirmed Active Social History Social History Type Response Tobacco Use: pt denies. Sex Patient Care team information Care Team Personnel Name: Ebony Victoria NP Position: [facility] Associate Professional Member Role: Lifetime Consulting Provider Address: Address: [address] [place] [id number] Name: Juan Mondragon DO Position: [facility] Physician (General Medicine) Member Role: PCP Address: Address: [address] [place] [id number] Name: Madeline Wren RN Position: [facility] RN Member Role: Primary Care Nurse Name: Safia Kilpatrick RN Position: [facility] RN Georgev Member Role: Primary Care Nurse Care Team Related Persons Name: GABBIE KUO Address: home [address] [place] [address] UM
--- OUTSIDE RECORDS SUMMARY | 2024-03-29 11:59 | XMS_ITS | Continuity of Care Document ---
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 units, Subcutaneous Injection, 3 times a day before meals Metoprolol 50 mg XL Tablet (metoprolol 50 mg oral tablet, extended release) ??50 mg, By Mouth, Daily NaCl 0.9% Flush 3ml (NaCL 0.9% Flush) ??3 mL, IV Push, Every 8 hours CONTINUOUS: (0) PRN: (7) Acetaminophen 325 mg Tablet (Acetaminophen Tablet) ??650 mg, By Mouth, Every 4 hours Docusate Sodium 100 mg Capsule (Docusate Sodium Capsule) ??100 mg 1 capsule, By Mouth, 2 times a day Gabapentin 300 mg Capsule (gabapentin 300 mg oral capsule) ??300 mg, By Mouth, 2 times a day NaCl 0.9% Flush 3ml (NaCL 0.9% Flush) ??3 mL, IV Push, Every 8 hours Polyethylene Glycol 17 Gm Powder (MiraLax Powder) ??17 Gm 1 pack/packet, By Mouth, Daily Senna Tablet ??8.6 mg 1 tablet, By Mouth, 2 times a day Simethicone 80 mg Chewable Tablet (Simethicone Tablet) ??80 mg, Chew, 3 times a day ? Results Recent Labs BLOOD COUNT & DIFF WBC 11.8 k/mm3 (High)?? 06/09/2023 06:02 RBC 3.82 m/mm3 (Low)?? 06/09/2023 06:02 Hgb 10.5 Gm/dL (Low)?? 06/09/2023 06:02 Hct 33.4 % (Low)?? 06/09/2023 06:02 MCV 87.4 femtoliters ()?? 06/09/2023 06:02 MCH 27.5 pg ()?? 06/09/2023 06:02 MCHC 31.4 g/dL (Low)?? 06/09/2023 06:02 Platelet Count 350 k/mm3 ()?? 06/09/2023 06:02 RDW-SD 44.2 femtoliters ()?? 06/09/2023 06:02 MPV 8.6 femtoliters (Low)?? 06/09/2023 06:02 Nucleated RBC (Automated) 0.0 #/100 WBC'S ()?? 06/09/2023 06:02 Abs. NRBC 0.0 k/mm3 ()?? 06/09/2023 06:02 Abs. Neut 8.9 k/mm3 (High)?? 06/09/2023 06:02 Abs. Lymph 1.5 k/mm3 ()?? 06/09/2023 06:02 Abs. Benzie 0.8 k/mm3 ()?? 06/09/2023 06:02 Abs. Eo 0.4 k/mm3 ()?? 06/09/2023 06:02 Abs. Baso 0.1 k/mm3 ()?? 06/09/2023 06:02 Neut % 75.3 % ()?? 06/09/2023 06:02 Lymph % 12.6 % (Low)?? 06/09/2023 06:02 Benzie % 7.1 % ()?? 06/09/2023 06:02 Eos % 3.0 % ()?? 06/09/2023 06:02 Baso % 0.5 % ()?? 06/09/2023 06:02 Imm Gran 1.5 % ()?? 06/09/2023 06:02 Abs. Imm Gran 0.2 k/mm3 ()?? 06/09/2023 06:02 ?? CHEM GENERAL Sodium 134 mmol/L ()?? 06/09/2023 06:02 Potassium 4.7 mmol/L ()?? 06/09/2023 06:02 Chloride 100 mmol/L ()?? 06/09/2023 06:02 Bicarbonate Level 24 mmol/L ()?? 06/09/2023 06:02 Anion Gap 10 ()?? 06/09/2023 06:02 Glucose Level 203 mg/dL (High)?? 06/09/2023 06:02 Glucose, POC 312 mg/dL (High)?? 06/09/2023 13:35 BUN 7 mg/dL ()?? 06/09/2023 06:02 Creatinine-Blood 0.7 mg/dL ()?? 06/09/2023 06:02 Estimated GFR Creatinine 112 ML/MIN/1.73 M2 ()?? 06/09/2023 06:02 Calcium 8.1 mg/dL (Low)?? 06/09/2023 06:02 Calcium, Ionized pH Corrected 1.13 mmol/L ()?? 06/09/2023 06:02 Phosphorus 3.2 mg/dL ()?? 06/09/2023 06:02 Magnesium 2.1 mg/dL ()?? 06/09/2023 06:02 Protein, Total 7.2 Gm/dL ()?? 06/08/2023 20:35 Albumin 3.2 Gm/dL (Low)?? 06/08/2023 20:35 AG Ratio 0.8 ()?? 06/08/2023 20:35 Alkaline Phosphatase 84 units/L ()?? 06/08/2023 20:35 Lipase 19 units/L ()?? 06/08/2023 20:35 AST (SGOT) 14 units/L ()?? 06/08/2023 20:35 ALT (SGPT) 18 units/L ()?? 06/08/2023 20:35 Bilirubin, Total 0.4 mg/dL ()?? 06/08/2023 20:35 Lactate 1.3 mmol/L ()?? 06/08/2023 23:00 C-Reactive Protein 18.2 mg/dL (High)?? 06/08/2023 20:35 ?? HEME OTHER Sed Rate 110 mm/hr (High)?? 06/08/2023 20:35 Hold Blue Top SPECIMEN DISCARDED AFTER 4 HOURS. ()?? 06/08/2023 20:35 ?? MISC. CHEMISTRY Procalcitonin 0.10 ng/mL ()?? 06/08/2023 20:35 Hold Gel Top SPECIMEN DISCARDED AFTER 1 WEEK ()?? 06/08/2023 20:35 ?? URINE OTHER Est Creatinine Clearance 141.94 mL/min ()?? 06/09/2023 08:58 ? Abnormal Labs ?? BLOOD COUNT & DIFF ??Abs. Imm Gran ??0.2 k/mm3 () ??06/09/2023 06:02 ??Abs. NRBC ??0.0 k/mm3 () ??06/09/2023 06:02 ??Abs. Neut ??8.9 k/mm3 (High) ??06/09/2023 06:02 ??Hct ??33.4 % (Low) ??06/09/2023 06:02 ??Hgb ??10.5 Gm/dL (Low) ??06/09/2023 06:02 ??Imm Gran ??1.5 % () ??06/09/2023 06:02 ??Lymph % ??12.6 % (Low) ??06/09/2023 06:02 ??MCHC ??31.4 g/dL (Low) ??06/09/2023 06:02 ??MPV ??8.6 femtoliters (Low) ??06/09/2023 06:02 ??Nucleated RBC (Automated) ??0.0 #/100 WBC'S () ??06/09/2023 06:02 ??RBC ??3.82 m/mm3 (Low) ??06/09/2023 06:02 ??RDW-SD ??44.2 femtoliters () ??06/09/2023 06:02 ??WBC ??11.8 k/mm3 (High) ??06/09/2023 06:02 ? CHEM GENERAL ??Calcium ??8.1 mg/dL (Low) ??06/09/2023 06:02 ??Estimated GFR Creatinine ??112 ML/MIN/1.73 M2 () ??06/09/2023 06:02 ??Glucose Level ??203 mg/dL (High) ??06/09/2023 06:02 ??Glucose, POC ??312 mg/dL (High) ??06/09/2023 13:35 ? Note: Critical results are displayed in red. ? * Loyd Melgar MD: PERFORM Event Display: Admission Note Authored Date: Attending Attestation:??I saw and examined the patient with the resident team and reviewed the chart on the day of service. ??I have discussed the case and its management??with the resident as documented in the resident note on the day of service.??I agree with the resident's note and plan as documented. Cardiology * Event Display: Cardiac Rhythm Strips Authored Date: * Event Display: Cardiac Rhythm Strips Authored Date: * Event Display: VL Lower Arterial PVR Without Exercise Authored Date: [id number] Demographics Procedure Information Patient name: SHIELA PICHARDO Procedure date: 06/09/2023 12:25 PM Corporate Proc. sub type: Extremities Arteries: Lower Arterial Plethysmography, Lower Arterial PVR Gender: Male without Exercise. Date of : 1975 Accession No: [id number] Age: 48 year(s) Account No: [id number] Patient status: GILMAR Procedure Staff Admit Status: Inpatient Ordering physician: Tammy De Jesus NP Probe: L 2-9 Referring Physician: Tammy De Jesus NP Technical quality: Limited visualization Attending Physician: Norma Frost MD Limitation reason: Body habitus Admitting Physician: Norma Frost MD Facility: [facility] Branch Manager: Ignacio Clifton Study location: [facility] Interpreting physician: Olivia Sullivan Procedure consent obtained: No Indications Pre-Op Evaluation and Peripheral Arterial Disease . Lower Extremity Findings Right Left Location Pressure (mmHg) Ratio Pressure (mmHg) Ratio Brachial 139 CUTTER OUT 210 1.51 200 1.44 DPA 208 1.5 199 1.43 Great Toe 69 0.5 52 0.37 Right DEMETRIO: 1.51 Left DEMETRIO: 1.44 Right TBI: Left TBI: 0.5 0.37 Physician Conclusions Summary: The Ankle / Brachial Index on the right is 1.5 ,No previous. The Ankle / Brachial Index on the left is 1.4 ,No previous. Consistent with non- compressibility bilaterally. The Toe/ Brachial Index on the right is abnormal, with likely adequate pressure for wound healing. The Toe/ Brachial Index on the left is abnormal, with moderately adequate pressure for wound healing. * Event Display: VL Lower Arterial PVR Without Exercise Authored Date: [id number] Hospital Progress note * Gene DIALLO, Bridget Quiñones: PERFORM Event Display: Progress Note Hospital Authored Date: [id number] Patient: ??MARINO KUO ? Age:??48 Years?Sex:??Male?:??1975?? Subjective Home wound vac placed at bedside, patient tolerated well. Wound measuring 2p3l7wk. Wound vac suction @ 125mmHg. Next vac change Tuesday06/22/23. * Gene DIALLO, Bridget Quiñones: PERFORM Event Display: Progress Note Hospital Authored Date: [id number] Patient: ??MARINO KUO ? Age:??48 Years?Sex:??Male?:??1975?? Subjective Patient examined at bedside this morning. No acute changes or events overnight. POD??4 LLE angio and heel debridement with Dr. Ocasio. Pain currently well controlled. Review of Systems General: No fevers or chills, no weight loss HEENT: No vision changes, headache or sore throat Resp: No dyspnea, cough Cardiac: no chest discomfort or palpitations Abdomen: no nausea, vomiting or diarrhea; no pain, bloating or soreness : no dysuria, changes to urination, flank or back pain Skin: s/p L heel debridement MSK: no joint pain, edema Neuro: no new weakness, numbness Objective Vitals & Measurements T:??98.3?F?? TMIN:??97.5?F?? TMAX:??98.6?F?? HR:??73??(Peripheral)?? RR:??17?? BP:??132/56?? SpO2:??98%?? Physical Exam General appearance: No apparent distress, appears stated age, well developed. Head: Normocephalic, atraumatic. Cardiac: RRR, no murmurs Respiratory: Clear to auscultation bilaterally. Abdomen: Soft, nontender, nondistended. No guarding or rebound. No palpable mass. Extremities: Able to move all extremities without difficulty. Warm. Neurologic status: Alert and oriented x 3. No focal deficits. Psych: Mood and affect normal. Vascular:??L heel: exposed calcaneal bone; pale wound base with fibrinous tissue and undermining ofwound edges. Left: BP AT/DP/PT Assessment/Plan Marino is a 48-year-old male past medical history CAD s/p DESx2 RCA/LAD (03/2022) on DAPT, HTN, T1DM (hemoglobin A1c 8.4 08/2022), obesity, chronic nonhealing lower extremity wounds, chronic venous stasis??presents to [facility] as a transfer from [facility]??on 06/09/2023??with a??le ft??diabetic??heel wound.?? CT??of the??left lower extremity was obtained showing??a soft tissue infection??of the left heel??with locules of gas abutting the??left calcaneus with no obvious osteomyelitis. ??On examination, there??was a 6 x 6 cm necrotic left heel wound??with foul odor??and purulent drainage.?? He was put on antibiotics and was brought to the OR on 06/10 for a heel wound debridement. He tolerated the procedure well and has been doing well post operatively. OR cultures speciatedas A. galactiae. Vinayak is now s/p LLE angio with L heel debridement with Dr. Ocasio on 06/16. Hetolerated this well without complication. Wound continues to be slow to heal, will continue with local wound care. Plan for wound vac placement today or tomorrow. ? Recommendations: - Diabetic diet as tolerated - Tight glycemic control - Continue Unasyn per ID recs - Continue daily ASA, Atorvastatin - Multimodal pain control - Heel Offloading - Wound care: WTD Dakins BID to L heel; cover with DSD - Wound vac placement - Remainder of care per primary team ?? Please page Vascular [place] [phone]. ?? Resident/PA/SAP ANALYST Attestation Case discussed with attending physician:??Dr. Ocasio ?? Medications Inpatient Acetaminophen Tablet, 650 mg, By Mouth, Every 4 hours, PRN aspirin 81 mg oral delayed release tablet, 81 mg, By Mouth, Daily atorvastatin 80 mg oral tablet, 80 mg, By Mouth, Daily Benadryl Tablet, 25 mg, By Mouth, Once, PRN Dakins 0.0125% Topical Solution, 0.0125 %= 473 mL, Topically, Every 12 hours Docusate Sodium Capsule, 100 mg= 1 capsule, By Mouth, 2 times a day, PRN gabapentin 300 mg oral capsule, 300 mg, By Mouth, 2 times a day, PRN Heparin Inj, 5000 units= 1 mL, Subcutaneous Injection, 3 times a day Insulin LISPRO Inj, 10 units= 0.1 mL, Subcutaneous Injection, Daily at bedtime Insulin LISPRO Sliding Scale, 20-44 units, Subcutaneous Injection, 3 times a day before meals Lantus Inj, 32 units= 0.32 mL, Subcutaneous Injection, Daily in AM Lantus Inj, 36 units= 0.36 mL, Subcutaneous Injection, Daily at bedtime metoprolol 50 mg oral tablet, extended release, 50 mg, By Mouth, Daily MiraLax Powder, 17 Gm= 1 pack/packet, By Mouth, Daily, PRN NaCL 0.9% Flush, 3 mL, IV Push, Every 8 hours NaCL 0.9% Flush, 3 mL, IV Push, Every 8 hours, PRN Senna Tablet, 8.6 mg= 1 tablet, By Mouth, 2 times a day, PRN Simethicone Tablet, 80 mg, Chew, 3 times a day, PRN Unasyn IVPB, 3 Gm, IVPB, Every 6 hours Home aspirin 81 mg oral delayed release tablet, 81 mg, By Mouth, Daily atorvastatin 80 mg oral tablet, 80 mg= 1 tablet, By Mouth, Daily gabapentin 300 mg oral capsule, 300 mg= 1 capsule, By Mouth, 2 times a day Insulin Glargine Inj, 75 units, Subcutaneous Injection, 2 times a day insulin lispro 100 units/mL injectable solution, 25-30 units, Subcutaneous Injection, 3 times a daybefore meals metoprolol succinate 50 mg oral capsule, extended release, 50 mg= 1 capsule, By Mouth, Daily nystatin topical 827805 u/gm powder, 1 application, Topically, 2 times a day PEG-3350 with Electrolytes (Eqv-GoLYTELY) oral powder for reconstitution, See Instructions * Mignon WIGGINS, Phyllis: PERFORM, MODIFY Event Display: Progress Note Hospital Authored Date: Patient: ??MARINO KUO ? Age:??48 Years?Sex:??Male?:??1975?? Subjective No acute overnight events. Patient management stable without any active complaints. ?? Review of Systems Negative except as above. Social History Alcohol Details:??Use: Past. ??Frequency: 1-2 times per year. Substance Abuse Details:??Use: pt denies. Tobacco Details:??Use: pt denies. ? Family History No family history recorded. ? Objective Vital Signs?? Temperature: 97.8 DegF (06/19/23 11:48:00) Temperature Route: Oral (06/19/23 11:48:00) Pulse Rate: 67 bpm (06/19/23 11:48:00) Respiratory Rate: 18 br/min (06/19/23 13:37:00) Systolic Blood Pressure: 129 mm Hg (06/19/23 11:48:00) Diastolic Blood Pressure: 62 mm Hg (06/19/23 11:48:00) Blood pressure sites: Arm, right (06/19/23 11:48:00) Mean Arterial Pressure: 84 mm Hg (06/19/23 11:48:00) Pulse Pressure: 67 mm Hg (06/19/23 11:48:00) Oxygen Saturation: 99 % (06/19/23 11:48:00) Mode of Delivery (Oxygen): Room air (06/19/23 11:48:00) Early Warning Score: 2 (06/19/23 16:01:42) ? Physical Exam Constitutional: Alert, in no distress. Respiratory: Clear to auscultation. No wheezing, rales or rhonchi. Cardiovascular: S1 S2 regular. No murmurs, rubs or gallops. Gastrointestinal: Abdomen soft, non-tender Neurologic:?? No focal neurological deficits. Skin: bilateral shins with chronic edema, L> R,??and venous stasis skin changes, dry flakey skin. Left teresa more erythematous with some violaceous mckeon more proximally,??L foot wrapped _ Home Medications Aspirin (aspirin 81 mg oral delayed release tablet)?81?Milligram?By Mouth?Daily Atorvastatin (atorvastatin 80 mg oral tablet)?1?tab(s)?80?Milligram?By Mouth?Daily Gabapentin (gabapentin 300 mg oral capsule)?300?Milligram?1?capsule?By Mouth?2 times a day Insulin Glargine (Insulin Glargine Inj)?75?unit(s)?Subcutaneous Injection?2 times a day Insulin Lispro (insulin lispro 100 units/mL injectable solution)?25-30 units?Subcutaneous Injection?3 times a day before meals?<< Sliding Scale Comments >>100 - 149 ?? 25 units Call if less than [id number] - [phone] ?? 30 units 200 - 249 ?? 35 units 250 - 299 ?? 40 units 300 - 349 ??45 units 350 - 399 ?? 50 units Call if greater than 400<< Sliding Scale Comments >> Metoprolol (metoprolol succinate 50 mg oral capsule, extended release)?1?capsule?50?Milligram?By Mouth?Daily?start on 04/16 Nystatin Topical (nystatin topical 337218 u/gm powder)?1?mekhi?Topically?2 times a day PEG Electrolyte Solution (PEG-3350 with Electrolytes (Eqv-GoLYTELY) oral powder for reconstitution)?See Instructions?By Mouth drink 8 oz of prep fluid every 15-20 minutes until it is gone ? Inpatient Medications Medications (19) Active SCHEDULED: (11) Ampicillin/Sulbactam 3 Gm Inj (Unasyn IVPB) ??3 Gm, IVPB, Every 6 hours Aspirin 81 mg EC Tablet (aspirin 81 mg oral delayed release tablet) ??81 mg, By Mouth, Daily Atorvastatin 80 mg Tablet (atorvastatin 80 mg oral tablet) ??80 mg, By Mouth, Daily Dakins Solution 0.0125% Strength (Dakins 0.0125% Topical Solution) ??0.0125 % 473 mL, Topically, Every 12 hours Heparin 5000 units/mL Inj (1 mL) (Heparin Inj) ??5,000 units 1 mL, Subcutaneous Injection, 3 times a day Insulin Glargine 100 units/mL Inj (Lantus Inj) ??50 units 0.5 mL, Subcutaneous Injection, Daily at bedtime Insulin Glargine 100 units/mL Inj (Lantus Inj) ??32 units 0.32 mL, Subcutaneous Injection, Daily Crystal Insulin Lispro 100 units/mL Inj (3mL) (Insulin LISPRO Sliding Scale) ??20-44 units, Subcutaneous Injection, 3 times a day before meals Insulin Lispro 100 units/mL Inj (3mL) (Insulin LISPRO Inj) ??10 units 0.1 mL, Subcutaneous Injection, Daily at bedtime Metoprolol 50 mg XL Tablet (metoprolol 50 mg oral tablet, extended release) ??50 mg, By Mouth, Daily NaCl 0.9% Flush 3ml (NaCL 0.9% Flush) ??3 mL, IV Push, Every 8 hours CONTINUOUS: (0) PRN: (8) Acetaminophen 325 mg Tablet (Acetaminophen Tablet) ??650 mg, By Mouth, Every 4 hours diphenhydrAMINE 25 mg Tablet (Benadryl Tablet) ??25 mg, By Mouth, Once Docusate Sodium 100 mg Capsule (Docusate Sodium Capsule) ??100 mg 1 capsule, By Mouth, 2 times a day Gabapentin 300 mg Capsule (gabapentin 300 mg oral capsule) ??300 mg, By Mouth, 2 times a day NaCl 0.9% Flush 3ml (NaCL 0.9% Flush) ??3 mL, IV Push, Every 8 hours Polyethylene Glycol 17 Gm Powder (MiraLax Powder) ??17 Gm 1 pack/packet, By Mouth, Daily Senna Tablet ??8.6 mg 1 tablet, By Mouth, 2 times a day Simethicone 80 mg Chewable Tablet (Simethicone Tablet) ??80 mg, Chew, 3 times a day ? 72 Hour Antibiotic History Active Antibiotics Calendar Day Last Administered First Administered Ampicillin-Sulbactam??3 Gm, 100 mL/hr, IVPB, Every 6 hours ? 11 06/19/2023 12:37 06/09/2023 17:15 ? Results Recent Labs CHEM GENERAL Glucose, POC 222 mg/dL (High)?? 06/19/2023 11:53 ? Assessment/Plan Marino Kuo is a 48 yo male with a history of Type 1 insulin-deficient diabetes mellitus, CAD (STEMI 2021 s/p SONY), chronic lower extremity diabetic ulcers, diabetic peripheral neuropathy, obesity, chronic venous statis, FIORELLA not using CPAP, and constipation, who presented to [facility] on 05/09 due to concern for infected diabetic ulcer on L heel and was??transferred to [facility] for surgical debridement.? Diabetic foot ulcer associated with type 1 diabetes mellitus (E10.621): Chronic ulceration in setting of DM I, afebrile, stable??vital signs, CT showing complicated cellulitis without osteomyelitis. Per Vascular team, unlikely necrotizing infection. Plan: -ultures finalized, no anaerobes, strep agalactiae in other cx -Continue unasyn IV 3g Q6Hr -MRI negative for osteomyelitis. ??ID signed off, will transition to Augmentin on discharge and complete 2 weeks of antibiotics. -S/p??angiogram with debridement on 06/17. ? Insulin dependent type 1 diabetes mellitus (E10.9):?? Home insulin regimen: 75 U Insulin Glargine BID, 25-30 U Insulin Lispro sliding scale starting at BGL 150 Last dose of glargine was morning of 10/18 Plan: -Insulin dosing??per BIDS note -Please do not hold??longstanding insulin??able to do patient is n.p.o.???would give at least half the dose. ?? CAD: -Continue home metoprolol 50 mg XL Tablet PO daily -Continue home Atorvastatin 80 mg Tablet PO daily ?? Diabetic Peripheral Neuropathy: -Gabapentin 300 mg??Q12Hr??PRN ?? VTE Prophylaxis:??SubQ Heparin TID due to surgical debridement (patient has been persistently refusing) Diet: Diabetic Code Status: Full Code confirmed with patient OMN:??Post op recovery?? PT eval recommending post acute rehab ? As per surgery, transition to wound vac in the next 1-2 days ? Consult note * Rafael Haile MD: MODIFY, MODIFY, PERFORM Event Display: Consultation Note Authored Date: Patient: ??MARINO KUO ? Age:??48 Years?Sex:??Male?:??1975?? Chief Complaint trnsfer from [place]. diabetic left foot ulcer, started 3 weeks ago. Went to wound care today and recommended being seen in ED. pt lives at home and is AxOx4. Reason for Consultation Complicated cellulitis??and also??infusion reaction versus possible allergy for vancomycin Referring physician??Dr. Harrington ??DO History of Present Illness Mr. Pichardo is a 48-year-old male with history of coronary artery disease, hypertension, type 1 diabetes mellitus hemoglobin A1c around 8.4 to Emy, obesity, nonhealing extremity wounds for the past 6 to 7 years, chronic venous stasis presented to [facility] on 06/09/2023 for left diabetic heel wound.?? Patient was hemodynamically stable, afebrile.?? Lab work shows WBC 11.8 CRP [address] scan showing soft tissue infection of the left heel with locules ofgas within the left calcaneus no evidence of any osteomyelitis, Patient has a history of adverse reaction to vancomycin possibly allergy vs infusion reaction. ID was consulted in ED who recommended daptomycin ?? blood cultures from 06/08??which have been negative in 24 hours Blood cultures from 05/26 and 05/27 have been negative 06/01 swab of the heel??shows??1+ squamous epithelial cells, 3+ gram-positive rods, 2+ gram-positive cocci Wound culture from 02/03??shows strep group B Patient is currently getting??daptomycin and Unasyn Review of Systems Constitutional:??No weight loss, fever, chills, weakness or fatigue. Allergy/Immune: Denies any??Eczema or hives Eyes:??No visual loss, blurred vision, double vision or yellow sclera ENT:??No hearing loss, sneezing, congestion, runny nose or sore throat. Respiratory:??No shortness of breath, cough or sputum production. Cardiovascular:??No chest pain, chest pressure or chest discomfort. No palpitations or pedal edema. Gastrointestinal:??No anorexia, nausea, vomiting or diarrhea. No abdominal pain or blood in stool. Genitourinary:??No burning micturition. No urinary frequency or incontinence. Neurologic:??No headache, dizziness, syncope, unilateral weakness, ataxia, numbness or tingling in the extremities. No change in bowel or bladder control. Hematologic/Lymphatics:??No bleeding or bruising. No painful lymph nodes. Skin:??Redness in the lower extremity,??swelling Endocrine:??No reports of sweating. No cold or heat intolerance. No polyuria or polydipsia. Psychiatric:??No depression or anxiety. Physical Exam Vitals & Measurements T:??98.4?F?? TMIN:??97.4?F?? TMAX:??99.4?F?? HR:??78??(Peripheral)?? RR:??17?? BP:??139/69?? SpO2:??98%?? General appearance: No apparent distress, appears stated age, well developed. Head: Normocephalic, atraumatic. Cardiac: RRR, no murmurs or gallops. Respiratory: Clear to auscultation bilaterally. Abdomen: Soft, nontender, nondistended. No guarding or rebound. No palpable mass. Incisions/Dressings: DSD to cover left heel, kerlix wrap Extremities: Able to move all extremities without difficulty. Warm and well perfused. Chronic BL LEedema Neurologic status: Alert and oriented x 3. No focal deficits. Psych: Mood and affect normal. Lower extremities??both legs chronic edema and venous stasis skin changes, dry flakey skin,??left leg more erythematous,??increased warmth, Left: 6x6cm??heel wound with soft black eschar, malodorous,??no crepitus,?? Assessment/Plan Mr. Pichardo is a 48-year-old male with history of coronary artery disease, hypertension, type 1 diabetes mellitus hemoglobin A1c around 8.4 to August, obesity, nonhealing extremity wounds for the past 6 to 7 years, chronic venous stasis presented to [facility] on 06/09/2023 for left diabetic heel wound.?? Patient was hemodynamically stable, afebrile.?? Lab work shows WBC 11.8 CRP 18[address] scan showing soft tissue infection of the left heel with locules ofgas within the left calcaneus no evidence of any osteomyelitis, Patient has a history of adverse reaction to vancomycin possibly allergy vs infusion reaction. ID was consulted in ED who recommended daptomycin Chronic type 1 diabetes mellitus patient with??peripheral arterial disease,??venous insufficiency,??having??chronic??left heel wound??with possible infection??CT showing picture of??locules of gas,??with??patient also having cellulitis changes noted??on the lower extremity??would like to cover the p atient with??gram-positive??gram-negative and also anaerobic coverage ?? Recommendations: Continue the patient on the current dose of daptomycin,??Unasyn Do CPK levels??baseline and weekly Follow-up on the culture results from the OR Aggressive diabetic control Surgery notes appreciated Total time spent with patient care is 60 minutes ?? Thank you for this consultation.?? Rafael Haile?? PGY4 Infectious diseases Fellow ? Case discussed with attending physician, Dr. Maya ?? Problem List/Past Medical History Ongoing Bacterial cellulitis Constipation Diabetic foot ulcers Encounter for screening colonoscopy Fever Hyperglycemia due to diabetes mellitus Hyponatremia Insulin dependent type 1 diabetes mellitus Lactic acid acidosis Severe obesity STEMI (ST elevation myocardial infarction) Medications Inpatient Acetaminophen Tablet, 650 mg, By Mouth, Every 4 hours, PRN aspirin 81 mg oral delayed release tablet, 81 mg, By Mouth, Daily atorvastatin 80 mg oral tablet, 80 mg, By Mouth, Daily Benadryl Tablet, 25 mg, By Mouth, Once, PRN DAPTOmycin Inj, 400 mg= 8 mL, IV Push Slowly, Every 24 hours Docusate Sodium Capsule, 100 mg= 1 capsule, By Mouth, 2 times a day, PRN gabapentin 300 mg oral capsule, 300 mg, By Mouth, 2 times a day, PRN Heparin Inj, 5000 units= 1 mL, Subcutaneous Injection, 3 times a day Insulin LISPRO Sliding Scale, 5-25 units, Subcutaneous Injection, Every 6 hours Lantus Inj, 35 units= 0.35 mL, Subcutaneous Injection, Once metoprolol 50 mg oral tablet, extended release, 50 mg, By Mouth, Daily MiraLax Powder, 17 Gm= 1 pack/packet, By Mouth, Daily, PRN NaCL 0.9% Flush, 3 mL, IV Push, Every 8 hours NaCL 0.9% Flush, 3 mL, IV Push, Every 8 hours, PRN Senna Tablet, 8.6 mg= 1 tablet, By Mouth, 2 times a day, PRN Simethicone Tablet, 80 mg, Chew, 3 times a day, PRN Unasyn IVPB, 3 Gm, IVPB, Every 6 hours Home aspirin 81 mg oral delayed release tablet, 81 mg, By Mouth, Daily atorvastatin 80 mg oral tablet, 80 mg= 1 tablet, By Mouth, Daily gabapentin 300 mg oral capsule, 300 mg= 1 capsule, By Mouth, 2 times a day Insulin Glargine Inj, 75 units, Subcutaneous Injection, 2 times a day insulin lispro 100 units/mL injectable solution, 25-30 units, Subcutaneous Injection, 3 times a daybefore meals metoprolol succinate 50 mg oral capsule, extended release, 50 mg= 1 capsule, By Mouth, Daily nystatin topical 233363 u/gm powder, 1 application, Topically, 2 times a day PEG-3350 with Electrolytes (Eqv-GoLYTELY) oral powder for reconstitution, See Instructions Allergies vancomycin doxycycline??(Rash) Social History Alcohol Use: Past. Frequency: 1-2 times per year. Substance Abuse Use: pt denies. Tobacco Use: pt denies. Immunizations Vaccine Date Status SARS-CoV-2 (COVID-19) mRNA-1273 vaccine 03/12/2022 Recorded SARS-CoV-2 (COVID-19) mRNA-1273 vaccine 07/09/2021 Recorded influenza virus vaccine, inactivated 06/24/2021 Recorded SARS-CoV-2 (COVID-19) mRNA-1273 vaccine 12/02/2020 Recorded SARS-CoV-2 (COVID-19) mRNA-1273 vaccine 11/04/2020 Recorded influenza virus vaccine, inactivated 06/03/2020 Recorded influenza virus vaccine, inactivated 06/19/2019 Recorded influenza virus vaccine, inactivated 12/17/2014 Recorded influenza virus vaccine, inactivated 09/14/2013 Recorded Lab Results Test Name Test Result Date/Time WBC 10.7 k/mm3 06/10/2023 01:05 EDT Hgb 11.1 Gm/dL 06/10/2023 01:05 EDT Platelet Count 401 k/mm3 06/10/2023 01:05 EDT BUN 11 mg/dL 06/10/2023 01:05 EDT Creatinine-Blood 0.8 mg/dL 06/10/2023 01:05 EDT Diagnostic Results (06/08/2023 22:[address] Ext Lower W/ Contrast Left) IMPRESSION: ?? Diffuse soft tissue swelling which may represent edema or cellulitis. No CT evidence of peripherally enhancing soft tissue abscess collection. ?? Soft tissue ulcer along the plantar aspect of the heel. Gas attenuation extends to the cortex of the posterior calcaneal process. Infection with gas-forming organism cannot be excluded ?? No CT evidence of aggressive osteolysis ?? If clinical symptoms persist or worsen, MRI or three-phase nuclear medicine bone scan would providea more sensitive evaluation [1] ?? (06/02/2023 11:54 EDT Foot Min 3 Views Left) IMPRESSION: ?? No evidence of osseous abnormality associated with the patient's ulcer. No plain film evidence of osteomyelitis. ?? No evidence of acute fracture or dislocation. [2] ?? (05/26/2023 09:28 EDT Chest 2 Views Frontal and Lat) IMPRESSION: ?? No significant interval change. [3] [1]??CT Ext Lower W/ Contrast Left; Stevenson Ferrell MDStanley 06/08/2023 22:02 EDT [2]??Foot Min 3 Views Left; Husam WIGGINS, Gavin Callahan 06/02/2023 11:54 EDT [3]??Chest 2 Views Frontal and Lat; Sarah WIGGINS, Jordan V 05/26/2023 09:28 EDT * Francesco WIGGINS, Amando Powell: PERFORM Event Display: Consultation Note Authored Date: Attending Attestation:??I have seen and evaluated this patient. ??I have discussed the case and itsmanagement with Dr. Haile and agree with the findings and plan as documented in the fellow's note. ??X-ray and CT did not show clear evidence of osteomyelitis, but??given nature of??the infection it would be worthwhile to fully rule this out with??an MRI??with contrast.?? Continue with daptomycinand ampicillin/sulbactam for empiric??therapy. ??However, the daptomycin and requires an increase in dose (dose as 400 mg??which is 2.8mg/kg; should use 4mg/kg if treating for skin/soft tissue infection without concern for enterococcus. Will increase to 850mg daily which is 6mg/kg dosing while ruling out osteomyelitis). * Cary WIGGINS, Abdoulaye: MODIFY, PERFORM, MODIFY, MODIFY Event Display: Consultation Note Authored Date: [id number] Patient: ??MARINO KUO ? Age:??48 Years?Sex:??Male?:??1975?? Chief Complaint trnsfer from [facility]. diabetic left foot ulcer, started 3 weeks ago. Went to wound care today and recommended being seen in ED. pt lives at home and is AxOx4. Reason for Consultation Consult type: BIDS Reason: Type I diabetes mellitus management Requesting Provider: Shane Issa, DO ?? History of Present Illness 48-year-old male with medical history of type 1 diabetes mellitus, insulin resistance, coronary artery disease status with STEMI post SONY, chronic lower extremity diabetic ulcers, diabetic peripheralneuropathy, obesity, chronic venous stasis, FIORELLA presented to [facility] on 06/08/23 for evaluation of infected diabetic ulcer and was transferred to [facility] for surgical debridement on 06/09/23.?? He has had poorly controlled glycemic trends during his hospitalization, which prompted a BIDS consult for assistance in management. ?? He was previously seen by the BIDS team during the hospitalization in March 2022.?? Notably at that time he was also on metformin 500 mg twice daily for insulin resistance.?? His diabetes was managed at [facility] at that time. ?? Patient was heading out to surgery when seen this morning. It was a brief visit, so entire diabeteshistory is not complete. ?? Diabetes History: Age of diagnosis: 1 years old ?? Outpatient diabetes medications: Lantus 100 units twice daily,??Humalog sliding scale. ?? HbA1C: 8.4% on 09/06/22 ?? Complications: Retinopathy: Nephropathy: No Neuropathy:??Yes Ulcer(s)/amputation(s): Chronic diabetic wounds ASCVD: History of coronary artery disease??and STEMI s/p SONY,??peripheral artery disease. No history of stroke. Gastroparesis: No ?? Outpatient DM provider:? Current Inpatient glycemic history and management: ?- Basal insulin: None ?-??Prandial insulin: Humalog 25 units starting at??150 mg/dL with interval increase of??2 units for every??50 mg/dL rise in blood glucose??TIDAC ?- Diet: NPO ?- IVF:??None ?? Glycemic trends reviewed: Blood glucose range in the past 24 hours 203-330, bedtime??BG??308 and??this morning FBG 228. He received a total of Lantus 70 units and Humalog 47 units yesterday. Review of Systems Reviewed and negative except??as noted??above. Physical Exam Vitals & Measurements T:??98.4?F?? TMIN:??97.4?F?? TMAX:??99.4?F?? HR:??78??(Peripheral)?? RR:??17?? BP:??139/69?? SpO2:??98%?? WT:??308??kg?? GENERAL APPEARANCE:??In no acute distress. HEENT: sclerae anicteric, conjunctivae pink and moist. EOMI. Oral mucosa moist NECK: Supple and symmetric. LUNGS: No respiratory distress. SKIN: hyperpigmentation distal lower extremities EXTREMITIES: No cyanosis or??clubbing. NEUROLOGIC: Alert and oriented x 3. Normal affect. Assessment/Plan 48-year-old male with medical history of type 1 diabetes mellitus, insulin resistance, coronary artery disease status with STEMI post SONY, chronic lower extremity diabetic ulcers, diabetic peripheralneuropathy, obesity, chronic venous stasis, FIORELLA presented to [facility] on 06/08/23 for evaluation of infected diabetic ulcer and was transferred to [facility] for surgical debridement on 06/09/23.?? He has had poorly controlled glycemic trends during his hospitalization, which prompted a BIDS consult for assistance in management. ?? #Poorly controlled type 1 diabetes mellitus with complications HbA1C: 8.4% on 09/06/22. ??Will order repeat. Glycemic trends reviewed.?Yesterday he required total daily dose of 0.84 units/kg.?Recommend increasing to a total daily dose of??1.2 units/kg, Lantus??40 units BID??and adjust Humalog sliding scale to 25??units starting at 80 mg/dL with interval increase of??5 units??for every 50??mg/dL risein blood glucose,??3 times daily AC, hold if NPO.?? While NPO, will give ~80% of Lantus dose, 35 units now and adjust the Humalog scale to a correctional one, 5??units starting at??150 mg/dL with interval increase of??5 units??for every 50??mg/dL risein blood glucose,??every 6 hours, hold when diet resumes.?? We will continue to monitor glycemic trends and titrate insulin accordingly. Final discharge recommendations pending hospital course.?? Patient??has type I DM, please do not hold basal insulin,??if NPO give 70-80% of his dose. ? Plan of care discussed with ??Gen[place], addendum to follow. The plan was also discussed with the patient.? Thank you for the consultation, we will follow along with you. Please contact us with any questionsor concerns.? Abdoulaye Townsend MD Endocrinology Fellow, PGY-V Problem List/Past Medical History Ongoing Bacterial cellulitis Constipation Diabetic foot ulcers Encounter for screening colonoscopy Fever Hyperglycemia due to diabetes mellitus Hyponatremia Insulin dependent type 1 diabetes mellitus Lactic acid acidosis Severe obesity STEMI (ST elevation myocardial infarction) Medications Inpatient Acetaminophen Tablet, 650 mg, By Mouth, Every 4 hours, PRN aspirin 81 mg oral delayed release tablet, 81 mg, By Mouth, Daily atorvastatin 80 mg oral tablet, 80 mg, By Mouth, Daily Benadryl Tablet, 25 mg, By Mouth, Once, PRN DAPTOmycin Inj, 400 mg= 8 mL, IV Push Slowly, Every 24 hours Docusate Sodium Capsule, 100 mg= 1 capsule, By Mouth, 2 times a day, PRN gabapentin 300 mg oral capsule, 300 mg, By Mouth, 2 times a day, PRN Heparin Inj, 5000 units= 1 mL, Subcutaneous Injection, 3 times a day Insulin LISPRO Sliding Scale, 5-25 units, Subcutaneous Injection, Every 6 hours Lantus Inj, 35 units= 0.35 mL, Subcutaneous Injection, Once metoprolol 50 mg oral tablet, extended release, 50 mg, By Mouth, Daily MiraLax Powder, 17 Gm= 1 pack/packet, By Mouth, Daily, PRN NaCL 0.9% Flush, 3 mL, IV Push, Every 8 hours NaCL 0.9% Flush, 3 mL, IV Push, Every 8 hours, PRN Senna Tablet, 8.6 mg= 1 tablet, By Mouth, 2 times a day, PRN Simethicone Tablet, 80 mg, Chew, 3 times a day, PRN Unasyn IVPB, 3 Gm, IVPB, Every 6 hours Home aspirin 81 mg oral delayed release tablet, 81 mg, By Mouth, Daily atorvastatin 80 mg oral tablet, 80 mg= 1 tablet, By Mouth, Daily gabapentin 300 mg oral capsule, 300 mg= 1 capsule, By Mouth, 2 times a day Insulin Glargine Inj, 75 units, Subcutaneous Injection, 2 times a day insulin lispro 100 units/mL injectable solution, 25-30 units, Subcutaneous Injection, 3 times a daybefore meals metoprolol succinate 50 mg oral capsule, extended release, 50 mg= 1 capsule, By Mouth, Daily nystatin topical 541133 u/gm powder, 1 application, Topically, 2 times a day PEG-3350 with Electrolytes (Eqv-GoLYTELY) oral powder for reconstitution, See Instructions Allergies vancomycin doxycycline??(Rash) Social History Alcohol Use: Past. Frequency: 1-2 times per year. Substance Abuse Use: pt denies. Tobacco Use: pt denies. Immunizations Vaccine Date Status SARS-CoV-2 (COVID-19) mRNA-1273 vaccine 03/12/2022 Recorded SARS-CoV-2 (COVID-19) mRNA-1273 vaccine 07/09/2021 Recorded influenza virus vaccine, inactivated 06/24/2021 Recorded SARS-CoV-2 (COVID-19) mRNA-1273 vaccine 12/02/2020 Recorded SARS-CoV-2 (COVID-19) mRNA-1273 vaccine 11/04/2020 Recorded influenza virus vaccine, inactivated 06/03/2020 Recorded influenza virus vaccine, inactivated 06/19/2019 Recorded influenza virus vaccine, inactivated 12/17/2014 Recorded influenza virus vaccine, inactivated 09/14/2013 Recorded * [place] WIGGINS, Remy Frost: PERFORM Event Display: Consultation Note Authored Date: [id number] I have seen and evaluated this patient. ??I have discussed the case and its management with the fellow and agree with the findings and plan as documented in the fellow???s note. Note * Cecelia Pratt RN: PERFORM Event Display: Discharge/Transfer Note Hospital Authored Date: [id number] Nursing Discharge Note Entered On: 06/20/2023 17:10 EDT Performed On: 06/20/2023 17:10 EDT by Cecelia Pratt RN Nursing Discharge Note 2 Discharge Time : 06/20/2023 17:08 EDT Discharge Level of Care at Discharge : Homehealth/VNA Discharge VNA/Hospice/Home Care(v001) : [facility] [phone] Patient Left Unit Via : Wheelchair Patient Accompanied Off Unit with : Responsible adult DC Instructions Provided & Signed by Pt : Yes Patient Understands D/C Instructions : Yes Patient Instructions Discharge Signed : Yes Did Pt have Specialty Bed or Wound Vac : No Cecelia Pratt RN - 06/20/2023 17:10 EDT * Mignon WIGGINS, Phyllis: PERFORM, MODIFY Event Display: Discharge/Transfer Note Hospital Authored Date: [id number] Patient: ??MARINO KUO ? Age:??48 Years?Sex:??Male?:??1975?? Patient Information Discharge Location: Primary Care Physician: Juan Mondragon DO Admit Date/Time: 06/09/23 05:53 Discharge Disposition Discharge Disposition: Home with Home Health Discharge Diagnosis Diabetic foot ulcer associated with type 1 diabetes mellitus (E10.621) Insulin dependent type 1 diabetes mellitus (E10.9) ?? _ Discharge Medications Amoxicillin-Clavulanate (Augmentin 875 mg-125 mg oral tablet)?1?tab(s)?By Mouth?Every 12 hours?for 4?Days Aspirin (aspirin 81 mg oral delayed release tablet)?81?Milligram?By Mouth?Daily Atorvastatin (atorvastatin 80 mg oral tablet)?1?tab(s)?80?Milligram?By Mouth?Daily Gabapentin (gabapentin 300 mg oral capsule)?300?Milligram?1?capsule?By Mouth?2 times a day Insulin Glargine (Lantus Inj)?0.36?Milliliter?36?unit(s)?Subcutaneous Injection?Daily at bedtime Insulin Glargine (Lantus Inj)?0.32?Milliliter?32?unit(s)?Subcutaneous Injection?Daily in AM Insulin Lispro?20-44 units?Subcutaneous Injection?3 times a day before meals?<< Sliding Scale Comments >>80 - 129 ?? 20 units Call if less than 30013 - 179 ?? 24 units 180 - 229 ?? 28 units 230 - 279 ?? 32 units 280 - 329 ?? 36 units 330 - 379 ?? 40 units 380 - 429 ?? 44 units Call if greater than 400<< Sliding Scale C... Metoprolol (metoprolol succinate 50 mg oral capsule, extended release)?1?capsule?50?Milligram?By Mouth?Daily?start on 04/16 ? Quality Measures Chest Pain, AMI Quality Measures:? 72 Hour Antibiotic History Active Antibiotics Calendar Day Last Administered First Administered Ampicillin-Sulbactam??3 Gm, 100 mL/hr, IVPB, Every 6 hours ? 12 06/20/2023 12:33 06/09/2023 17:15 ? Medications Started Augmentin Medications Discontinued None Doses Changed Insulin dosing PCP Follow-Up/Heads-Up - Repeat blood work - Follow-up on discharge. - Please review list of medications. Future Appointments Tuesday 3:00 PM EST ?? With: Gene DIALLO, Bridget Quiñones Where: [facility] [id number] [place] [address]- Status: Pending 2023 8:00 AM EST ?? Where: [facility] Status: Pending Hospital Course Marino Kuo is a 48 yo male with a history of Type 1 insulin-deficient diabetes mellitus, CAD (STEMI 2021 s/p SONY), chronic lower extremity diabetic ulcers, diabetic peripheral neuropathy, obesity, chronic venous statis, FIORELLA not using CPAP, and constipation, who presented to [facility] on 05/09 due to concern for infected diabetic ulcer on L heel and was??transferred to [facility] for surgical debridement.?Patient underwent multiple surgical debridements followed by wound VAC placement. ID was involved for??guidance on antibiotics and he was continued on IV Unasyn, will be transition to p.o. antibiotics??given MRI was negative for osteomyelitis. He given he is close to his baseline mentation health, decision was to discharge him home with services. Patient expresses understanding and agrees with the plan. ?? Please see prior hospital??documents, consult and??imaging for details. ? Diabetic foot ulcer associated with type 1 diabetes mellitus (E10.621): Chronic ulceration in setting of DM I, afebrile, stable??vital signs, CT showing complicated cellulitis without osteomyelitis. Per Vascular team, unlikely necrotizing infection. Plan: -ultures finalized, no anaerobes, strep agalactiae in other cx -Continue unasyn IV 3g Q6Hr -MRI negative for osteomyelitis. ??ID signed off, will transition to Augmentin on discharge and complete 2 weeks of antibiotics. -S/p??angiogram with debridement on 06/17 followed by wound vac on 06/20 ? Insulin dependent type 1 diabetes mellitus (E10.9):?? Home insulin regimen: 75 U Insulin Glargine BID, 25-30 U Insulin Lispro sliding scale starting at BGL 150 Last dose of glargine was morning of 06/08 Plan: -Insulin dosing??per BIDS note -Please do not hold??longstanding insulin??able to do patient is n.p.o.???would give at least half the dose. ?? CAD: -Continue home metoprolol 50 mg XL Tablet PO daily -Continue home Atorvastatin 80 mg Tablet PO daily ?? Diabetic Peripheral Neuropathy: -Gabapentin 300 mg??Q12Hr??PRN ? Objective . Physical Exam Constitutional: Alert, in no distress. Respiratory: Clear to auscultation. No wheezing, rales or rhonchi. Cardiovascular: S1 S2 regular. No murmurs, rubs or gallops. Gastrointestinal: Abdomen soft, non-tender Neurologic:?? No focal neurological deficits. Skin: bilateral shins with chronic edema, L> R,??and venous stasis skin changes, dry flakey skin. Left teresa more erythematous with some violaceous mckeon more proximally,??L foot wrapped Surgical Procedures Debridement Wound 06/10/2023 12:29 Aortogram Angiogram Arteriogram with Bella 06/16/2023 14:46 Debridement Wound 06/16/2023 14:46 Pending Results Add On Lab Order ordered on 06/10/2023 Add On Lab Order ordered on 06/13/2023 Fungal Culture, Nonrespiratory ordered on 06/10/2023 Patient Education Titles Your Diabetes Foot Care Program?? Follow-Up Appointments Added Follow Up ?Time Frame ?Comments Alanna MENDEZ, Juan Christensen Patient Instructions ???Please follow-up with your primary care physician for administer medication repeating a set of blood work within 1 week's time including renal function. ???Please follow-up with vascular surgery for continued management of wound VAC and infection. ???Please follow-up with endocrinology for continued management of diabetes mellitus. ???Please present to the emergency department if you need the following symptoms including laboratory shortness of breath, chest pain, palpitations, increased pain/swelling??or change in sensation atthe??surgical site??or any other symptoms. ? Medication changes: Your insulin regimen in the hospital was as follows: -Lantus 32 units daily in the morning. -Lantus 36 units daily at bedtime. -Lispro sliding scale: 20-44 units to be used 3 times daily before meals: 80 - 129?20 units Call if less than 70 130 - 179?24 units 180 - 229?28 units 230 - 279?32 units 280 - 329?36 units 330 - 379?40 units 380 - 429?44 units Call if greater than 400 -Please monitor for symptoms of hypoglycemia and call 911 immediately. ? New Medication: -Augmentin through 06/23. Post Discharge Care Discharge ?06/20/23 14:58:00 EDT Home Health Face to Face *Denotes mandatory barboza ?? *I certify that this patient is under my care and that I or an allowed non- physician working with me had a face to face encounter with the patient on this date:??06/20/2023 15:03 ?? *The encounter with the patient was in whole, or in part, for the following medical condition, which is the primary diagnosis(es) for home health care:??Diabetic foot ulcer associated with type 1 diabetes mellitus (E10.621) Insulin dependent type 1 diabetes mellitus (E10.9) ? *Select the indications for the discipline/s that are being arranged for this patient. Nursing (select all that apply): [_] None [_] Medication management (reconciliation, teaching)?? [_] Chronic disease management?? [X] Wound care and treatment?? [_] Home safety evaluation [_] Administer SQ/IM/IV medications?? [_] Cath care?? [_] Drain care?? [_] Trach or GT care?? Other _ Occupation Therapy (select all that apply): [_] None [_] ADL Management [_] Fall prevention training [_] Energy conservation [_] Cognitive training Other _ Physical Therapy (select all that apply): [_] None [X] Functional mobility training [_] Home exercise program to strengthen [_] Increase ROM?? [_] Falls prevention training [_] Home maintenance program for chronic disease Other _ Speech Therapy (select all that apply): [_] None [_] Swallow evaluation and training [_] Speech and language training [_] Cognitive training to process, organize, and/or recall information Other _ ? *Homebound due to (select all that apply): [_] Inability to leave home without assistance/supervision [X] Inability to ambulate without assistance [_] Pain [X] Decreased strength and endurance [_] Unsteady gait [_] Severe SOB and fatigue [_] Impaired transfers [_] Inability to negotiate stairs [_] Limited weight bearing [_] Mental status change? *Physician Signature:??Phyllis Crow ?? *By signing this, I certify that I have personally evaluated the patient and agree with the findings and recommendations as documented above. ? Results Discharge Labs BLOOD BANK Blood Type O Positive ()?? 06/15/2023 09:56 Antibody Screen Negative ()?? 06/15/2023 09:56 ?? BLOOD COUNT & DIFF WBC 11.8 k/mm3 (High)?? 06/17/2023 02:40 RBC 4.85 m/mm3 ()?? 06/17/2023 02:40 Hgb 13.3 Gm/dL (Low)?? 06/17/2023 02:40 Hct 43.0 % ()?? 06/17/2023 02:40 MCV 88.7 femtoliters ()?? 06/17/2023 02:40 MCH 27.4 pg ()?? 06/17/2023 02:40 MCHC 30.9 g/dL (Low)?? 06/17/2023 02:40 Platelet Count 479 k/mm3 (High)?? 06/17/2023 02:40 RDW-SD 45.9 femtoliters ()?? 06/17/2023 02:40 MPV 8.3 femtoliters (Low)?? 06/17/2023 02:40 Nucleated RBC (Automated) 0.0 #/100 WBC'S ()?? 06/17/2023 02:40 Abs. NRBC 0.0 k/mm3 ()?? 06/17/2023 02:40 Abs. Neut 5.5 k/mm3 ()?? 06/14/2023 07:54 Abs. Lymph 2.2 k/mm3 ()?? 06/14/2023 07:54 Abs. Benzie 0.6 k/mm3 ()?? 06/14/2023 07:54 Abs. Eo 0.4 k/mm3 ()?? 06/14/2023 07:54 Abs. Baso 0.1 k/mm3 ()?? 06/14/2023 07:54 Neut % 60.3 % ()?? 06/14/2023 07:54 Lymph % 23.8 % ()?? 06/14/2023 07:54 Benzie % 6.6 % ()?? 06/14/2023 07:54 Eos % 4.5 % ()?? 06/14/2023 07:54 Baso % 1.2 % ()?? 06/14/2023 07:54 Imm Gran 3.6 % ()?? 06/14/2023 07:54 Abs. Imm Gran 0.3 k/mm3 ()?? 06/14/2023 07:54 ?? CHEM GENERAL Sodium 136 mmol/L ()?? 06/17/2023 02:40 Potassium 4.5 mmol/L ()?? 06/17/2023 02:40 Chloride 101 mmol/L ()?? 06/17/2023 02:40 Bicarbonate Level 23 mmol/L ()?? 06/17/2023 02:40 Anion Gap 12 ()?? 06/17/2023 02:40 Glucose Level 147 mg/dL (High)?? 06/17/2023 02:40 Glucose, POC 177 mg/dL (High)?? 06/20/2023 11:52 Hemoglobin A1C (Monitoring) 7.7 % (High)?? 06/10/2023 01:05 BUN 11 mg/dL ()?? 06/17/2023 02:40 Creatinine-Blood 0.9 mg/dL ()?? 06/17/2023 02:40 Estimated GFR Creatinine 105 ML/MIN/1.73 M2 ()?? 06/17/2023 02:40 Calcium 8.9 mg/dL ()?? 06/17/2023 02:40 Calcium, Ionized pH Corrected 1.13 mmol/L ()?? 06/09/2023 06:02 Phosphorus 3.2 mg/dL ()?? 06/09/2023 06:02 Magnesium 2.1 mg/dL ()?? 06/09/2023 06:02 ? ENDOCRINE/TUMOR MARKER C-Peptide <0.1 (Low)?? 06/13/2023 00:43 ? HEME OTHER Hold Lavender Top SPECIMEN DISCARDED AFTER 24 HOURS. ()?? 06/15/2023 10:21 ? MISC. CHEMISTRY Hold Green Top SPECIMEN DISCARDED AFTER 1 WEEK ()?? 06/15/2023 10:21 Hold Gel Top SPECIMEN DISCARDED AFTER 1 WEEK ()?? 06/15/2023 10:21 Hold Robison Top SPECIMEN DISCARDED AFTER 1 WEEK ()?? 06/15/2023 10:21 ? URINE OTHER Est Creatinine Clearance 110.40 mL/min ()?? 06/17/2023 03:50 ? 34??minutes spent on discharge * Terence STEVENS, Cecelia: PERFORM, MODIFY Event Display: Patient Education/Instruction Authored Date: [id number] Inpatient Adult Discharge Instructions [address] [address] Name: MARINO KUO : 1975 Visit: 06/09/2023 05:53:00 Current Date: 06/20/2023 15:58 Account: [id number] Inpatient Adult Discharge Instructions We would like to thank you for allowing us to assist you with your healthcare needs. The following includes patient education materials and information regarding your injury/illness. Our entire staffstrives to provide an excellent experience for our patients and their families. PLEASE ENSURE YOU FOLLOW-UP PER THE INSTRUCTIONS BELOW! ?? YOUR OPINION IS IMPORTANT TO US! Please complete the survey you may receive by mail or email. Your feedback will be used to make improvements to the healthcare experiences of our patients and their families. Surveys are administered by [employer] ?? If further treatment with your primary care physician or another doctor is recommended, it is important for you to keep the appointment. Call your primary care physician or return to the Emergency Department immediately if your condition worsens, fails to improve, or new symptoms develop. If you need to find a doctor, you can call [facility] for a referral at [phone] or toll free at [phone] or log in to [email or web address].. ?? [facility], in keeping with [facility] guidance, no longer requires face masks for staff, patientsor visitors in most situations. Similiar to time spent indoors at other locations, there is the chance that you were exposed to repiratory viruses during your time with us (such as flu or COVID-19). If you develop symptoms concerning for a viral respiratory infection, please seek testing (and treatment if indicated) from your medical provider or home test kit. ?? You can view and manage your care through the patient portal or by using a health care mekhi of your choosing. [employer] is a website that allows you to securely view your medical information including your hospital discharge summary, office visit summaries, medications and follow-up visits. You can also request appointments, renew medications, and request access to your medical information using a health care mekhi of your choosing, or just ask a question. You can enroll at [email or web address] or register during your next office visit. You have been discharged from [facility], Patient Care Unit: M6. If you have any questions regarding these instructions after you leave, please call us and we will be happy to assist you. [facility] Your Care Team Attending Physician Mignon WIGGINS, Phyllis Consulting Providers Francesco WIGGINS, Amando Powell; Palmer WIGGINS, Jun; Olivia WIGGINS, Laurie Sifuentes; Earline WIGGINS, Vladimir; Geneva WIGGINS, Remy Frost; Cristian WIGGINS, Gordon Frost; Susan WIGGINS, Roseann Lucas; Rome WIGGINS, Odette; Ninfa WIGGINS, Bolivar De Jesus Discharging Providers Mignon WIGGINS, Phyllis Reason for Admission trnsfer from [facility]. diabetic left foot ulcer, started 3 weeks ago. Went to wound care today and recommended being seen in ED. pt lives at home and is AxOx4. Your Diagnosis Diabetic foot ulcer associated with type 1 diabetes mellitus Insulin dependent type 1 diabetes mellitus Tests Performed Below is a partial list of the tests performed during your hospitalization. You may have had other tests and procedures not included in this list. Please discuss all test results with your provider. Basic Metabolic Panel C-PEPTIDE Calcium Ionized CBC CBC w/ Differential GLUCOSE POC HEMOGLOBIN A1C HOLD GEL TUBE HOLD ROBISON TUBE HOLD GREEN TUBE HOLD LAVENDER TUBE Magnesium Level Phosphorus Level Type and Screen MRI Ext Lower W+W/O Contrast Left Primary Care Provider Juan Mondragon DO Advance Directive Health Care Proxy on File Yes - Health Care Proxy Discharge Vitals Temperature: 98.3 DegF Height: 184 cm Pulse Rate: 67 bpm Weight: 140 kg Respiratory Rate: 17 br/min Body Mass Index:??41.35 kg/m2??Critical Systolic Blood Pressure: 113 mm Hg Body surface area: 2.67 Diastolic Blood Pressure: 59 mm Hg ?? Oxygen Saturation: 99 % ?? Studies Pending All tests and labs ordered during this hospital stay have been completed unless listed below. Please discuss all pending results with your provider listed above in these instructions. ?? Add On Lab Order Fungal Culture, Nonrespiratory (FUNGAL CULT,NON-RESPIRATORY) What to do next Instructions From Your Doctor ???Please follow-up with your primary care physician for administer medication repeating a set of blood work within 1 week's time including renal function. ???Please follow-up with vascular surgery for continued management of wound VAC and infection. ???Please follow-up with endocrinology for continued management of diabetes mellitus. ???Please present to the emergency department if you need the following symptoms including laboratory shortness of breath, chest pain, palpitations, increased pain/swelling??or change in sensation atthe??surgical site??or any other symptoms. ? Medication changes: Your insulin regimen in the hospital was as follows: -Lantus 32 units daily in the morning. -Lantus 36 units daily at bedtime. -Lispro sliding scale: 20-44 units to be used 3 times daily before meals: 80 - 129?20 units Call if less than 70 130 - 179?24 units 180 - 229?28 units 230 - 279?32 units 280 - 329?36 units 330 - 379?40 units 380 - 429?44 units Call if greater than 400 -Please monitor for symptoms of hypoglycemia and call 911 immediately. ? New Medication: -Augmentin through 06/23. Discharge Orders Scheduled Follow-Up Appointments Tuesday 3:00 PM EST ?? With: Gene DIALLO, Bridget Quiñones Where: [facility] [address] [address]- Status: Pending 2023 8:00 AM EST ?? Where: [facility] Status: Pending You Need to Schedule the Following Appointments Follow Up with??Juan Mondragon DO Where: ?? Discharge Medications TIMRIKMARINO :1975 Visit Date:06/09/2023 Medications: Please continue your medications until treatment is completed or stopped by your provider. Medications not listed below should be discontinued. Discuss any questions related to medications with your provider. What How Much When Why Instructions Next Dose New Amoxicillin-Clavulanate (Augmentin 875 mg-125 mg oral tablet) 1 tab(s) Oral Every 12 hours Duration: 4 Days Pickup at [facility] Tomorrow morning Changed Insulin Glargine (Lantus Inj) 32 unit(s) Subcutaneous Injection Daily in the morning Tomorrow morning Changed Insulin Glargine (Lantus Inj) 36 unit(s) Subcutaneous Injection Daily at Bedtime Tonight at bedtime Changed Insulin Lispro 20-44 units Subcutaneous Injection 3 times a day before meals << Sliding Scale Comments >> 80 - 129 ?? 20 units Call if less than 70 130 - 179 ?? 24 units 180 - 229 ?? 28 units 230 - 279 ?? 32 units 280 - 329 ?? 36 units 330 - 379 ?? 40 units 380 - 429 ?? 44 units Call if greater than 400 << Sliding Scale Comments >> ?? Today before dinner Unchanged Aspirin (aspirin 81 mg oral delayed release tablet) 81 Milligram Oral Daily STEMI (ST elevation myocardial infarction) Tomorrow morning Unchanged Atorvastatin (atorvastatin 80 mg oral tablet) 1 tab(s) Oral Daily Tomorrow morning Unchanged Gabapentin (gabapentin 300 mg oral capsule) 1 capsule Oral Twice a day continue home regimen Unchanged Metoprolol (metoprolol succinate 50 mg oral capsule, extended release) 1 capsule Oral Daily STEMI (ST elevation myocardial infarction) start on ?? Tomorrow morning Pharmacy Information [facility]: [address], [place] [id number] [phone] ?? What How Much When Why Comments Stop Taking Clopidogrel (Plavix 75 mg oral tablet) 1 tab(s) Oral Daily STEMI (ST elevation myocardial infarction) Stop Taking Nystatin Topical (nystatin topical 194621 u/ gm powder) 1 mekhi Topically Twice a day Stop Taking PEG Electrolyte Solution (PEG-3350 with Electrolytes (Eqv-GoLYTELY) oral powder for reconstitution) See instructions By Mouth drink 8 oz of prep fluid every 15-20 minutes until it is gone ?? Test Results Below is a partial list of the most recent Laboratory test results done prior to this discharge. You may have had other tests and procedures not included in this list. Please discuss all test resultswith your provider. Est Creatinine Clearance - 110.40 mL/min (06/17/2023) Basic Metabolic Panel (06/17/2023) ???Sodium - 136 mmol/L???Potassium - 4.5 mmol/L???Chloride - 101 mmol/L???Bicarbonate Level - 23 mmol/L???Anion Gap - 12???Glucose Level - 147 mg/dL???BUN - 11 mg/dL???Creatinine-Blood - 0.9 mg/dL???Estimated GFR Creatinine - 105 ML/MIN/1.73 M2???Calcium - 8.9 mg/dL C-PEPTIDE (06/13/2023) ? ?C-Peptide - <0.1 Calcium Ionized (06/09/2023) ???Calcium, Ionized pH Corrected - 1.13 mmol/L CBC (06/17/2023) ???WBC - 11.8 k/mm3???RBC - 4.85 m/mm3???Hgb - 13.3 Gm/dL???Hct - 43.0 %???MCV - 88.7 femtoliters???MCH - 27.4 pg???MCHC - 30.9 g/dL???Platelet Count - 479 k/mm3???RDW-SD - 45.9 femtoliters???MPV - 8.3 femtoliters???Nucleated RBC (Automated) - 0.0 #/100 WBC'S???Abs. NRBC - 0.0 k/mm3 CBC w/ Differential (06/14/2023) ???WBC - 9.1 k/mm3???RBC - 4.62 m/mm3???Hgb - 12.7 Gm/dL???Hct - 40.3 %???MCV - 87.2 femtoliters???MCH - 27.5 pg???MCHC - 31.5 g/dL???Platelet Count - 460 k/mm3???RDW-SD - 44.7 femtoliters???MPV - 8.3 femtoliters???Nucleated RBC (Automated) - 0.0 #/100 WBC'S???Abs. NRBC - 0.0 k/mm3???Abs. Neut - 5.5 k/mm3???Abs. Lymph - 2.2 k/mm3???Abs. Benzie - 0.6 k/mm3???Abs. Eo - 0.4 k/mm3???Abs. Baso - 0.1 k/mm3???Neut % - 60.3 %???Lymph % - 23.8 %???Benzie % - 6.6 %???Eos % - 4.5 %???Baso % - 1.2 %???Imm Gran- 3.6 %???Abs. Imm Gran - 0.3 k/mm3 GLUCOSE POC (06/20/2023) ???Glucose, POC - 177 mg/dL HEMOGLOBIN A1C (06/10/2023) ???Hemoglobin A1C (Monitoring) - 7.7 % HOLD GEL TUBE (06/15/2023) ???Hold Gel Top - SPECIMEN DISCARDED AFTER 1 WEEK HOLD ROBISON TUBE (06/15/2023) ???Hold Robison Top - SPECIMEN DISCARDED AFTER 1 WEEK HOLD GREEN TUBE (06/15/2023) ???Hold Green Top - SPECIMEN DISCARDED AFTER 1 WEEK HOLD LAVENDER TUBE (06/15/2023) ???Hold Lavender Top - SPECIMEN DISCARDED AFTER 24 HOURS. Magnesium Level (06/09/2023) ???Magnesium - 2.1 mg/dL Phosphorus Level (06/09/2023) ???Phosphorus - 3.2 mg/dL Type and Screen (06/15/2023) ???Blood Type - O Positive???Antibody Screen - Negative Allergies (NKA means No Known Allergies) vancomycin doxycycline??(Rash) Problems Active Problems??(11) Bacterial cellulitis?? Constipation?? Diabetic foot ulcers?? Encounter for screening colonoscopy?? Fever?? Hyperglycemia due to diabetes mellitus?? Hyponatremia?? Insulin dependent type 1 diabetes mellitus?? Lactic acid acidosis?? Severe obesity?? STEMI (ST elevation myocardial infarction)?? Education Materials Below is the list of Educational Leaflet Providered with your Discharge Instructions. BVS-Wound Care Wound Vac?? Your Diabetes Foot Care Program?? Valuables and Belongings I fully understand and agree that [facility] accepts no responsibility for all my personal property including clothing, toilet articles, radios, jewelry, dentures, hearing aids, rings, money, or any other property that is in my possession or is brought to me after admission. I understand certain valuables may be placed in a hospital safe for a short period of time. I understand that the hospital is not liable for loss or damage due to accident, fire, or other natural occurrence while said property is in the safe. I accept full responsibility for any personal property that I keep with me, and will not hold the hospital responsible in case of loss or disappearance. I acknowledge that i have been encouraged to send valuables and belongings home. ?? No Valuables/Belongings: No valuables/belongings present Date for Pt to Sign Valuables/Belongings: 06/16/23 13:48:00 ?? Valuables & Belongings ?? Clothes Electronic devices Jewelry Monetary Items Personal devices Miscellaneous Medications (Valuables) Valuables at Bedside Jacket, Pants, Shirt, Shoes, Undergarments ? Valuables Sent Home ? Valuables Sent to Security ? Other Discharge Information ?? Wound Assessment?? Wound Assessment?? Wound Location I: Foot, left Wound Type I: Diabetic Wound I, Present on Admission: Yes Wound Location II: Heel, left Wound II, Present on Admission: Yes Closure Device Status I: Dressed Closure Method I: Other: Type Of Dressing Applied I: Kerlix ? Case Management Discharge Plan?? Discharge Plan?? Discharge Agency Information?? Discharge Level of Care at Discharge: Homehealth/VNA Name of Agency #1: [facility] [phone] Discharge VNA/Hospice/Home Care: [facility] [phone] Service Categories #1: Physical Therapy, Care Home, Wound Vac ?? Service Comments #1: You are being discharged with Services for PT,SN and wound vac with [facility] [phone]. They will contact you in 1-2 days to schedule an appt. Please contact them if you do not hear from them. ?? Name of Person Notified of Transfer: patient ?? Pulmonary Rehab Status?? Pulmonary Rehab Discharge Status?? Respiratory Rate: 17 br/min ? Common Emergency Awareness Tips IS IT A STROKE? Act FAST and Check for these signs: FACE Does the face look uneven? ARM Does one arm drift down? SPEECH Does their speech sound strange? TIME Call at any sign of stroke ?? Heart Attack Signs Chest discomfort: Most heart attacks involve discomfort in the center of the chest and lasts more than a few minutes, or goes away and comes back. It can feel like uncomfortable pressure, squeezing, fullness or pain. Discomfort in upper body: Symptoms can include pain or discomfort in one or both arms, back, neck, jaw or stomach. Shortness of breath: With or without discomfort. Other signs: Breaking out in a cold sweat, nausea, or lightheaded. Remember, MINUTES DO MATTER. If you experience any of these heart attack warning signs, call to get immediate medical attention! ?? Smoking can increase your chances of developing chronic health problems and can cause harmful effects to other family members in your house. If you smoke, you are strongly encouraged to quit. Please call [facility] at [phone] or [phone] ([phone]) or log in to [email or web address] for referrals to smoking cessation programs. ?? 353 Suicide & Crisis Lifeline is available 14/03 if you or someone you know needs to find a reason to keep living. By calling 459 you'll be connected to a skilled, trained counselor at a crisis center in your area. INPATIENT DISCHARGE INSTRUCTIONS SIGNATURE PAGE MARINO KUO Location:[facility] Registration Date and Time:06/09/2023 05:53 EDT Primary Care Physician: Juan Mondragon DO, Attending Physician: Mignon WIGGINS, [facility], I MARINO KUO, have received the above patient education materials/instructions and have verbalized understanding. If ambulance or transport services are being used I further acknowledge being given a choice of service. ?? If you need to contact me, please call me at this number: . Patient/Check Writer Name: Patient/Check Writer Signature: Relationship to Patient: Witness Name/Signature: Date: * Cecelia Pratt RN: PERFORM Event Display: Patient Education Leaflets Authored Date: [id number] BVS-Wound Care Wound Vac ?? 75 Vascular Wound Care Wound Vac ?? Wound VAC at 120 mmHg continuous suction. Next vac change due in 2 days. Please wet sponge to assist with removal of sponge. May apply adaptic to wound base prior to applying new VAC sponge to assistwith removal of sponge for next dressing change. If VAC dressing is interrupted for >2hrs, please convert to wet-dry dressing. VAC sponge will need to be applied GILMAR. ? * Phyllis Crow MD: PERFORM Event Display: Patient Education Leaflets Authored Date: [id number] Your Diabetes Foot Care Program ?? [address] Your Diabetes Foot Care Program Every day you depend on your feet to keep you moving. But when you have diabetes, your feet need special care. Even a small foot problem can become very serious. So don???t take your feet for granted. Work with your diabetes healthcare team. They can help you protect your feet and keep them healthy. Assessing your feet An assessment helps your healthcare provider check the condition of your feet. The assessment includes a review of your diabetes history and overall health. It may also include a foot exam, X-rays, or other tests. These can help show problems beneath the skin that you can???t see or feel. ?? Health history You will be asked about your overall health and any history of foot problems. You???ll also discussyour diabetes history, such as if your blood sugar level has changed over time. It also includes questions about feelings of pain, tingling, pins and needles, or numbness. Your healthcare provider will also want to know if you have high blood pressure and heart or kidney disease. Or if you smoke.??Tell your provider about any past foot infections. Discuss all of the medicines (including [id number]), vitamins, supplements, or herbs you take. ?? Foot exam A foot exam checks the condition of different parts of your foot. First your skin and nails are checked for any signs of infection. Blood flow is checked by feeling for the pulses in each foot. You may also have tests to study the nerves in the foot. These include using a small wire (monofilament) to see how sensitive your feet are. Dry skin on your feet may be a sign of damage to nerves which control the moisture on your skin. Toenail fungal infections may lead to more serious bacterial infections. In certain cases, you will be asked to walk a short distance. This is done to check for bone, joint, and muscle problems. ?? Diagnostic tests If needed, your healthcare provider will suggest certain tests to learn more about your feet. Theseinclude: ??? Doppler tests. These measure blood flow in the feet and lower leg. ??? X-rays. These can show bone or joint problems. ??? Other imaging tests. These may include an MRI, bone scan, and CTscan. These can help show bone infections. ??? Other tests. These may include vascular tests. Thesetests study the blood flow in your feet and legs. This is done by comparing the blood pressures in your arm and ankle. You may also have nerve studies to learn how sensitive your feet are. ?? Creating a foot care program Based on the evaluation, your healthcare provider will create a foot care program for you. This maybe as simple as starting a daily self-care routine. And changing the types of shoes you wear. It may also include treating minor foot problems, such as a corn or blister. In some cases, surgery will be needed to treat an infection. Or to treat mechanical problems, such as claw toes and hammer toes. ?? Preventing problems When you have diabetes, it???s easier to prevent problems than to treat them later on. So see your healthcare team for regular checkups and foot care. Your healthcare team can also help you learn more about caring for your feet at home. For example, you may be told to not walk barefoot, even in your home. Or you may be told you need special footwear to protect your feet. ?? Have regular checkups Foot problems can happen quickly. So follow your healthcare team???s schedule for regular checkups.During office visits, take off your shoes and socks as soon as you get in the exam room. Ask your healthcare provider to check your feet for problems. This will make it easier to find and treat smallskin issues before they get worse. Regular checkups can also help keep track of the blood flow and feeling in your feet. You may have pain or lack of feeling in your feet (neuropathy). Then you'll need checkups more often. ?? Learn about self-care The more you know about diabetes and your feet, the easier it will be to prevent problems. Your healthcare team can teach you how to check your feet every day. And teach you to look for warning signs. They can also give you other foot care tips. Before your office visits, write down any foot care questions you have. During office visits, ask any questions you have. ?? Last Reviewed Date: 2021 ?? 2839-9859 [employer]. All rights reserved. This information is not intended as a substitute for professional medical care. Always follow your healthcare professional's instructions. ?? Patient Care team information Care Team Personnel Name: Matilda Lowe RN Position: [facility] RN Member Role: Primary Care Nurse Name: Karen Farias RN Position: S RN Member Role: Primary Care Nurse Name: Akil Zelaya RN Position: S RN Member Role: Primary Care Nurse Name: Roseann Sullivan RN Position: S RN Member Role: Primary Care Nurse Name: Ebony Victoria NP Position: [facility] Associate Professional Member Role: [employer] Provider Address: Address: [address] [place] [id number]- Name: Rosalba Ugalde RN Position: S RN Member Role: Primary Care Nurse Name: Juan Mondragon DO Position: [facility] Physician (General Medicine) Member Role: PCP Address: Address: [address] [place] [address]- Name: Madeline Wren RN Position: [facility] RN Member Role: Primary Care Nurse Name: Izabel Guy RN Position: [facility] RN Member Role: Primary Care Nurse Name: Autumn Montgomery RN Position: [facility] RN Member Role: Primary Care Nurse Name: Brittny Luna RN Position: [facility] RN Member Role: Primary Care Nurse Name: [facility] Attending Position: [facility] ED Medicine MD Name: Alfredo Davidson Position: [facility] ED TA [facility] Member Role: [employer] Production Manager Name: Vania Calderón RN Position: [facility] ED RN W/OE and Tasks Member Role: Patient Care Provider Name: Gualberto Gillis RN Position: [facility] ED RN W/OE and Tasks Member Role: Patient Care Provider Name: Katherine Wilson Position: [facility] ED OA Charge Member Role: ED Associate Care Team Related Persons Name: GABBIE KUO Address: home [address] [place] [id number] Name: BRANDI KUO
--- OUTSIDE RECORDS SUMMARY | 2024-03-29 11:59 | XMS_ITS | Continuity of Care Document ---
Author Organization [facility] ter Address [address] [place] [id number]- Care Team Providers Care Commercial Sales Director Name Role Phone Juan Mondragon DO Primary Care Physician ( [phone] Encounter [facility] [place] Date(s): 07/14/23 - 07/14/[address] [address]- Encounter Diagnosis Wound of left foot(Final) - 07/14/23 Peripheral vascular disease(Final) - 07/14/23 Discharge Disposition: A-D/C Home Attending Physician: Last Vale DO Admitting Physician: Last Vale DO Referring Physician: Not on Staff, Referring MD [...] Maintenance, 04/15/22 12:39:00 EDT,Route to Pharmacy Electronically, [facility], Partial fill upon patient [...] capsule, 0 Refills, Maintenance, 07/13/23 9:01:00EST, Capsule, [facility] #[id number], Partial fill upon patient request if the [...] 08/24/23 9:01:00 EST, 07/13/23 9:01:00 EST, Tablet, [facility] #[id number], Partial fill upon patient request if the prescription is for a schedule II opioid drug.,... Start Date: 07/13/23 Stop Date: 08/24/23 Status: Ordered metoprolol succinate 50 mg oral capsule, extended release 1 capsule = 50 mg, By Mouth, Daily, start on 04/16, # 90 capsule, 0 Refills, Maintenance, 04/15/22 12:40:00 EDT, ER Capsule, [facility], Partial fill upon patient request if the prescription is for a schedule II opioid drug., 183, cm, ... Start Date: 04/15/22 Status: Ordered oxyCODONE 5 mg oral tablet 5 mg, By Mouth, Every 4 hours, PRN, for 5 days, # 30 tablet, Refills 0, Tot. Refills 0, Acute 07/18/23 9:01:00 EST, Pain , Moderate, 07/13/23 9:01:00 EST, Route to Pharmacy Electronically, [facility][id number], Partial fill upon patient request... Start Date: 07/13/23 Stop Date: 07/18/23 Status: Ordered sodium hypochlorite 0.0125% topical solution See Instructions, Topically daily, # 473 mL, 0 Refills, Acute 08/22/23 23:59:00 EST, 07/13/23 9:01:00 EST, Solution, [facility] #[id number], Partial fill upon patient request if the [...] oldest [Reference Range]: 1 2 3 Height 183 cm (07/14/23 1:57 PM) 183 cm (07/14/23 1:56 PM) Oxygen Saturation [94-100 %] 100 % (07/14/23 7:31 PM) 100 % (07/14/23 6:31 PM) 100 % (07/14/23 1:53 PM) Pulse Rate [55-90 bpm] 72 bpm (07/14/23 7:31 PM) 78 bpm (07/14/23 6:31 PM) 81 bpm (07/14/23 1:53 PM) Blood Pressure [90-138/55-84 mm Hg] 121/59mm Hg (07/14/23 7:31 PM) 122/64mm Hg (07/14/23 6:31 PM) 140/78mm Hg *H* (07/14/23 1:53 PM) Respiratory Rate [16-30 br/min] 24 br/min (07/14/23 7:31 PM) 22 br/min (07/14/23 6:31 PM) 22 br/min (07/14/23 1:53 PM) Temperature [96.8-100.4 DegF] 98.3 DegF (07/14/23 1:53 PM) Mode of Delivery (Oxygen) Room air (07/14/23 7:31 PM) Room air (07/14/23 6:31 PM) Room air (07/14/23 1:53 PM) Temperature Route Oral (07/14/23 1:53 PM) Social History Social History Type Response Tobacco Use: pt denies. Sex Consult note * Enedina WIGGINS, Bolivar Wright: PERFORM, MODIFY Event Display: Consultation Note Authored Date: [id number] Patient: ??MARINO KUO ? Age:??48 Years?Sex:??Male?:??1975?? Chief Complaint From home with left heel diabetic ulcer, had couple procedures on his heel. Now - area is open and bleeding. History of Present Illness Marino Kuo is a 48-year-old male past medical history CAD s/p DESx2 RCA/LAD (03/2022), HTN, T1DM (hemoglobin A1c 8.4 08/2022), obesity, chronic nonhealing lower extremity wounds, chronic venous stasis who is known to the vascular surgical service, was admitted from 07/06 - 07/13 for a left heel wound.?? He had undergone left heel debridement (06/10, Dr. Foster), left lower extremity angiogramand redebridement (06/16 Dr. Ocasio), redebridement (07/07 Dr. Davis), and ultimately a bedside debridement on 07/11.?? He was being treated for clinical osteo with exposed wound at the wound base.?? He was discharged home on 07/13.?? He was in his normal state of health until he had significantbleeding from the left heel, his VNA sent him to the ED for further evaluation.?? In the ED, he originally had bleeding, but was controlled with pressure.?? For evaluation of the wound bed, a vascular surgery consultation was requested. ?? On evaluation, Marino claims that he is feeling well, he is in good spirits, was just dismayed by the bleeding from the left heel base. Review of Systems Negative except as noted above in HPI. Physical Exam Vitals & Measurements T:??98.3?F?? HR:??81??(Peripheral)?? RR:??22?? BP:??140/78?? SpO2:??100%?? HT:??183??cm?? General appearance: No apparent distress, appears stated age, well developed. Head: Normocephalic, atraumatic. Cardiac: RRR, no murmurs?? Respiratory: Nonlabored breathing in room air Abdomen: Soft, nontender, nondistended. No guarding or rebound. No palpable mass. Extremities: Able to move all extremities without difficulty. Warm. Neurologic status: Alert and oriented x 3. No focal deficits. Psych: Mood and affect normal. Vascular: L heel clean wound base, no purulence noted, no active bleeding noted.?? Left: BP AT/DP/PT Assessment/Plan Marino Kuo is a 48-year-old male past medical history CAD s/p DESx2 RCA/LAD (03/2022), HTN, T1DM (hemoglobin A1c 8.4 08/2022), obesity, chronic nonhealing lower extremity wounds, chronic venous stasis who is known to the vascular surgical service, was admitted from 07/06 - 07/13 for a left heel wound.?? He had undergone left heel debridement (06/10, Dr. Foster), left lower extremity angiogramand redebridement (06/16 Dr. Ocasio), redebridement (07/07 Dr. Davis), and ultimately a bedside debridement on 07/11.?? He was being treated for clinical osteo with exposed wound at the wound base.?? He was discharged home on 07/13.?? He was in his normal state of health until he had significantbleeding from the left heel, his VNA sent him to the ED for further evaluation.?? In the ED, he originally had bleeding, but was controlled with pressure.??As the bleeding is controlled, the wound bed appears to be healing well with no signs of infection, he does not require admission to the hospital from a vascular perspective. He may follow up with the vascular clinic as previously scheduled. He was emphasized the need to not ambulate on the foot,??to hold pressure on the wound bed if there is oozing, and continue with the medications he was previously discharged on. ?? Discussed with Dr. Ocasio [facility][id number] with questions or concerns?? Problem List/Past Medical History Ongoing Bacterial cellulitis Constipation Diabetic foot infection Diabetic foot ulcers Encounter for screening colonoscopy Fever Hyperglycemia due to diabetes mellitus Hyponatremia Insulin dependent type 1 diabetes mellitus Lactic acid acidosis Severe obesity STEMI (ST elevation myocardial infarction) Procedure/Surgical History No qualifying data available. Home Medications Acetaminophen: 975 mg, By Mouth, Every 6 hours Aspirin: 81 mg, By Mouth, Daily Atorvastatin: 80 mg = 1 tablet, By Mouth, Daily Docusate: 100 mg = 1 capsule, By Mouth, 2 times a day Gabapentin: 300 mg = 1 capsule, By Mouth, 2 times a day Insulin Glargine: 42 units = 0.42 mL, Subcutaneous Injection, 2 times a day Insulin Lispro: 20-35 units, Subcutaneous Injection, 3 times a day before meals, << Sliding Scale Comments >>100 - 149 ?? 20 units Call if less than [phone] - 199 ?? 23 units 200 - 249 ?? 26 units 250 - 299 ?? 29 units 300 - 349 ?? 32 units 350 - 399 ?? 35 units Call if greater than 400<< Sliding Scale Comments >> Levofloxacin: 750 mg, By Mouth, Every 24 hours Metoprolol: 50 mg = 1 capsule, By Mouth, Daily, start on 04/16 Oxycodone: 5 mg, By Mouth, Every 4 hours, PRN (Pain , Moderate) Sodium Hypochlorite Topical: See Instructions, Topically daily Allergies vancomycin doxycycline??(Rash) Social History Alcohol Use: Past. Frequency: 1-2 times per year. Substance Abuse Use: pt denies. Tobacco Use: pt denies. Family History No family history recorded. Lab Results Labs Last 24 Hours No qualifying data available. Note * Daniel Peralta DO: PERFORM Event Display: Patient Education Leaflets Authored Date: Wound Healing ?? 642 You are an important partner in your care along with your health care team.?? Eating healthful foods and drinking nutrition shakes are two things that you can do to help improve wound healing! ?? What should I eat? ?? Protein Rich Foods Meat (Beef/Pork) Chicken/[place] Fish Cottage Cheese Nuts/Nut butters Beans Cheese Nutrition shakes Milk Yogurt Colombian Yogurt Eggs Vitamin C Rich Foods Oranges Bon Homme Juice Pineapple Strawberries Melons Broccoli Peppers Kiwi Papaya Zinc Rich Foods Beef Pork Dark meat chicken Oysters Crabmeat Beans Fortified cereal Nuts Wheat germ ? It is important to consume adequate??Calories and Protein each day. ?? If you do not eat many foods rich in vitamin C or zinc, you may need a complete multivitamin with minerals to ensure you are getting enough of these nutrients. ? Patient Care team information Care Team Personnel Name: Matilda Lowe RN Position: S RN Member Role: Primary Care Nurse Name: Karen Farias RN Position: S RN Member Role: Primary Care Nurse Name: Akil Zelaya RN Position: S RN Member Role: Primary Care Nurse Name: Agnes Mccann RN Position: S RN Member Role: Primary Care Nurse Name: Roseann Sullivan RN Position: [facility] RN Member Role: Primary Care Nurse Name: Ebony Victoria NP Position: [facility] Associate Professional Member Role: Lifetime Consulting Provider Address: Address: [address] [place] [phone]- [place] Name: Rosalba Ugalde RN Position: [facility] RN Member Role: Primary Care Nurse Name: Jaun Mondragon DO Position: [facility] Physician (General Medicine) Member Role: PCP Address: Address: [address] [place] [address]- [place] Name: Eva Holguin Position: [facility] RN Member Role: Primary Care Nurse Name: Flori Lilly RN Position: [facility] RN Member Role: Primary Care Nurse Name: Madeline Wren RN Position: [facility] RN Member Role: Primary Care Nurse Name: Izabel Guy RN Position: [facility] RN Member Role: Primary Care Nurse Name: Carmen Gates RN Position: [facility] RN Member Role: Primary Care Nurse Name: Autumn Montgomery RN Position: [facility] RN Member Role: Primary Care Nurse Name: Brittny Luna RN Position: [facility] RN Member Role: Primary Care Nurse Name: Tejas Jorge Position: [facility] ED TA [facility] Name: Last Vale DO Position: [facility] Resident Member Role: Admitting Physician Address: Address: [address] [place] [phone]- [place] Name: Daniel Peralta DO Position: [facility] Resident Member Role: ED Resident Address: Address: [address] [place] [phone]- [place] Name: Umm Finch RN Position: [facility] ED RN W/OE and Tasks Member Role: Patient Care Provider Name: Neetu Foster RN Position: [facility] ED RN W/OE and Tasks Care Team Related Persons Name: GABBIE KUO Address: home [address] [place] [address] Name: BRANDI KUO
--- OUTSIDE RECORDS SUMMARY | 2024-03-29 11:59 | XMS_ITS | Continuity of Care Document ---
Author Organization [facility] ter Address [address] [place] [id number]- Care Team Providers Care Consumer Educator Name Role Phone Alanna MENDEZJuan Primary Care Physician Encounter [facility] Date(s): 07/28/23 - 08/02/[address] [address] Discharge Disposition: A-D/C Home Attending Physician: Diana Liu MD Admitting Physician: Blanca Medina MD Referring Physician: Blanca Medina MD Allergies, Adverse Reactions, Alerts Substance Reaction [...] Maintenance, 04/15/22 12:39:00 EDT,Route to Pharmacy Electronically, [facility], Partial fill upon patient request [...] opioid drug. Start Date: 06/08/23 Status: Ordered clindamycin 300 mg oral capsule 2 capsule = 600 mg, By Mouth, 3 times a day, for 11 days, # 66 capsule, 0 Refills, Acute 08/13/23 9:18:00 EST, 08/02/23 9:18:00 EST, Capsule, [facility] 3, Partial fill upon patient request if the prescription is for a schedule II opioid d... Start Date: 08/02/23 Stop Date: 08/13/23 Status: Ordered Dilaudid 2 mg oral tablet 1 tablet = 2 mg, By Mouth, Every 4 hours, PRN Pain , Severe, for 7 days, # 42 tablet, 0 Refills, Acute 08/09/23 9:19:00 EST, 08/02/23 9:19:00 EST, Tablet, [facility] 3, Partial fill upon patient request if the prescription is for a schedul... Start Date: 08/02/23 Stop Date: 08/09/23 Status: Ordered docusate sodium 100 mg oral capsule 1 capsule = 100 mg, By Mouth, 2 times a day, # 20 capsule, 0 Refills, Maintenance, 07/13/23 9:01:00EST, Capsule, [id number], Partial fill upon patient request if the [...] gabapentin 300 mg oral capsule 300 mg, Capsule, By Mouth, 08/02/23 9:00:00 EST Start Date: 08/02/23 Stop Date: 08/02/23 Status: Completed gabapentin 300 mg oral capsule 300 mg, [...] drug. Start Date: 07/28/23 Status: Ordered metoprolol 50 mg oral tablet, extended release 50 mg, XL Tablet, By Mouth, 08/02/23 9:00:00 EST Start Date: 08/02/23 Stop Date: 08/02/23 Status: Completed metoprolol succinate 50 mg oral capsule, extended release 1 capsule = 50 mg, By Mouth, Daily, start on 04/16, # 90 capsule, 0 Refills, Maintenance, 04/15/22 12:40:00 EDT, ER Capsule, [facility], Partial fill upon patient request if the prescription is for a schedule II opioid drug., 183, cm, ... Start Date: 04/15/22 Status: Ordered MiraLax oral powder for reconstitution = 17 Gm, By Mouth, Daily, for 14 days, # 238 Gm, 0 Refills, Acute 08/16/23 9:19:00 EST, 08/02/23 9:19:00 EST, REC Powder, [facility], Partial fill upon patient request if the prescription is for a schedule II opioid drug., 17 Gm By Mouth... Start Date: 08/02/23 Stop Date: 08/16/23 Status: Ordered oxyCODONE 5 mg oral tablet 5 mg, Tablet, By Mouth, Every 4 hours, PRN for Pain , Moderate, Routine, 07/30/23 8:31:00 EST Start Date: 07/30/23 Stop Date: 08/02/23 Status: Discontinued saccharomyces pollydii lyo 250 mg oral capsule = 250 mg, By Mouth, 2 times a day, for 10 days, # 20 capsule, 0 Refills, Acute 08/12/23 9:17:00 EST, 08/02/23 9:17:00 EST, Capsule, [facility], Partial fill upon patient request if the prescription is for a schedule II opioid drug., 182,... Start Date: 08/02/23 Stop Date: 08/12/23 Status: Ordered Problem List Condition Confirmation Course [...] T2DM (type 2 diabetes mellitus) Confirmed Active Procedures Procedure Date Related Diagnosis Body Site Status Left BKA - Below knee amputation 07/29/23 Completed Vital Signs Most recent to oldest [Reference Range]: 1 2 3 Height 182 cm (08/02/23 5:44 AM) 182 cm (08/01/23 8:53 PM) 182 cm (08/01/23 4:33 PM) Weight 136.2 kg (07/29/23 2:15 PM) 136.2 kg (07/28/23 11:16 PM) 135.6 kg (07/28/23 10:00 PM) Oxygen Saturation [94-100 %] 99 % (08/02/23 5:44 AM) 98 % (08/01/23 8:53 PM) 100 % (08/01/23 4:33 PM) Pulse Rate [55-90 bpm] 77 bpm (08/02/23 8:40 AM) 77 bpm (08/02/23 5:44 AM) 77 bpm (08/01/23 8:53 PM) Body Mass Index [18.5-24.99 kg/m2] 41.12 kg/m2 *>HHI* (07/29/23 2:15 PM) 41.12 kg/m2 *>HHI* (07/28/23 11:16 PM) 40.94 kg/m2 *>HHI* (07/28/23 10:00 PM) Blood Pressure [90-138/55-84 mm Hg] 143/66mm Hg *H* (08/02/23 8:40 AM) 129/68mm Hg (08/02/23 5:44 AM) 120/60mm Hg (08/01/23 8:53 PM) Respiratory Rate [16-30 br/min] 18 br/min (08/02/23 8:48 AM) 18 br/min (08/02/23 8:40 AM) 20 br/min (08/02/23 5:44 AM) Temperature [96.8-100.4 DegF] 97.3 DegF (08/02/23 5:44 AM) 98.3 DegF (08/01/23 8:53 PM) 98.3 DegF (08/01/23 4:33 PM) Liters per Minute 2 L/min (07/30/23 5:00 AM) 2 L/min (07/29/23 8:00 PM) 2 L/min (07/29/23 7:00 PM) Mode of Delivery (Oxygen) Room air (08/02/23 5:44 AM) Room air (08/01/23 8:53 PM) Room air (08/01/23 4:33 PM) Blood pressure sites Arm, right (08/02/23 5:44 AM) Arm, right (08/01/23 8:53 PM) Arm, left (08/01/23 4:00 AM) Temperature Route Oral (08/02/23 5:44 AM) Oral (08/01/23 8:53 PM) Oral (08/01/23 1:42 PM) Dry Weight 136.2 kg (07/29/23 2:15 PM) 136.2 kg (07/28/23 11:16 PM) Weight Obtained Via Bed scale (07/28/23 10:00 PM) Dry Weight Obtained Via Standing scale (07/29/23 2:15 PM) Social History Social History Type Response Tobacco Use: pt denies. Sex Admission evaluation note * Brody ZALDIVAR, Lesa Sifuentes: PERFORM, MODIFY Event Display: Admission Note Authored Date: [id number] Patient: ??MARINO KUO ? Age:??48 Years?Sex:??Male?:??1975?? Chief Complaint/Reason for Consultation [facility] to [facility] transfer for vascular History of Present Illness MARINO KUO??is a??48 yo??M with??PMHx T2DM Complicated by Diabetic Foot Ulcer, CAD s/p SONY x 2, HTN, obesity who was transferred from [place] for vascular surgery consultation and likely amputation for osteomyelitis. ?? Patient was seen by vascular surgery at [facility], with plan for likely amputation. ?? He was also seen in consultation by infectious disease, and is currently on Zosyn and daptomycin. ?? He had no new complaints or concerns for me at time of evening admission. Review of Systems A full review of systems was completed and is otherwise negative except as mentioned in history of present illness. Objective ?? Physical Exam Temperature?101.3 ?(22:15) Systolic Blood Pressure?134 ?(22:15) Diastolic Blood Pressure?65 ?(22:15) Pulse?81 ?(22:15) SpO2?96 ?(22:15) Respiratory Rate?18 ?(22:15) ? General: Alert, NAD. HEENT: Normocephalic. Respiratory: Clear to auscultation. No wheezing, rales or rhonchi. Cardiovascular: RRR. No murmurs, rubs or gallops. Gastrointestinal: Abdomen soft, non-tender, non-distended. + bowel sounds. Neurologic: Moves all extremities spontaneously. Skin: No rashes or lesions. Extremities: No cyanosis or clubbing. L calcaneal wound with ulcer with exposed bone, clean wound base. Normal range of motion. Psychiatric: appropriate mood and affect Assessment/Plan Assessment:??MARINO KUO??is a??48 yo??M with??PMHx T2DM Complicated by Diabetic Foot Ulcer, CAD s/p SONY x 2, HTN, obesity who was transferred from [place] for vascular surgery consultation and likely amputation for osteomyelitis. ?? Sepsis (A41.9) r/t?? Foot osteomyelitis (M86.9) Pathologic Fracture of calcaneus (S92.009A) Gram-positive bacteremia (R78.81) vascular + ID following will need amputation continue Zosyn + Vanco (end date TBD pending definitive source control via amp) ?? T2DM (type 2 diabetes mellitus) (E11.9) Hyperglycemia (R73.9) home reg: lantus 100 BID + SSI. At [facility] was receiving 42-75 U lantus BID. Will start at 60 BID + SSI (of note, he was on this SSI beginning at 20U at [facility]) ?? Hyponatremia (E87.1):??appearing euvolemic, will check am Na , TSH, cortisol. may need fluid restriction. ?? CHRONIC MEDICAL CONDITIONS: CAD (coronary artery disease) (I25.10):??Continue atorvastatin, aspirin, metoprolol HTN (hypertension) (I10):??metoprolol HLD (hyperlipidemia) (E78.5):??statin Anemia (D64.9):??Appears chronic on chart review. ??H&H stable. ??No sign of overt bleed. ??Monitor CBC. f/u PCP. ? Code Status: Full? Diet: Diabetic? DVT PPX: Lovenox SC? Access: PIV OMN: Dispo TBD ?? I spent a total of 76 minutes today reviewing the chart/medical records, speaking with the patient, formulating and discussing the treatment plan and documenting the findings and encounter. This note was completed via Dragon Dictation. Please do not hesitate to contact the author for clarification of any unintentional error should it be needed. ? Histories Allergies Allergies ?(Active and Proposed Allergies Only) doxycycline? (Severity: Unknown severity, Onset: Unknown) ?Reactions: Rash vancomycin? (Severity: Persistent Severe, Onset: Unknown) ? Past Medical History/Problem List Active Problems??(20) Bacterial cellulitis CAD (coronary artery disease) Constipation Diabetic foot infection Diabetic foot ulcer Diabetic foot ulcers Encounter for screening colonoscopy Fever Foot osteomyelitis Gram-positive bacteremia HTN (hypertension) Hyperglycemia Hyperglycemia due to diabetes mellitus Hyponatremia Insulin dependent type 1 diabetes mellitus Lactic acid acidosis Sepsis Severe obesity STEMI (ST elevation myocardial infarction) T2DM (type 2 diabetes mellitus) ? Past Surgical History No surgery history documented. ? Social History Alcohol Details:??Use: Past. ??Frequency: 1-2 times per year. Substance Abuse Details:??Use: pt denies. Tobacco Details:??Use: pt denies. ? Family History No family history recorded. ? Medications Home Medications Acetaminophen (acetaminophen 325 mg oral tablet)?650?Milligram?By Mouth?Every 4 hours?as needed?Temperature Greater than 100.5?Pain , Mild Aspirin (aspirin 81 mg oral delayed release tablet)?81?Milligram?By Mouth?Daily Atorvastatin (atorvastatin 80 mg oral tablet)?1?tab(s)?80?Milligram?By Mouth?Daily Daptomycin (DAPTOmycin 500 mg intravenous injection)?6?Milligrams/Kilogram Docusate (docusate sodium 100 mg oral capsule)?1?capsule?100?Milligram?By Mouth?2times a day?for 10?Days Enoxaparin?0.4?Milliliter?40?Milligram?Subcutaneous Injection?2 times a day Gabapentin (gabapentin 300 mg oral capsule)?300?Milligram?1?capsule?By Mouth?2 times a day Insulin Glargine (Lantus Inj)?0.75?Milliliter?75?unit(s)?Subcutaneous Injection?2times a day Insulin Lispro (insulin lispro 100 u/ml subcutaneous injection)?20-35 units?Subcutaneous Injection?3 times a day before meals?<< Sliding Scale Comments >>100 - 149 ?? 20 unitsCall if less than [id number] - 199 ?? 23 units 200 - 249 ?? 26 units 250 - 299 ?? 29 units 300 - 349 ?? 32 units 350 - 399 ?? 35 units Call if greater than 400<< Sliding Scale Comments >> Levofloxacin (levoFLOXacin 750 mg oral tablet)?750?Milligram?By Mouth?Every 24 hours?for 6?week(s) Metoprolol (metoprolol succinate 50 mg oral capsule, extended release)?1?capsule?50?Milligram?By Mouth?Daily?start on 04/16 Piperacillin-Tazobactam?3.375?gram?IVPB?Every 8 hours Sodium Hypochlorite Topical (sodium hypochlorite 0.0125% topical solution)?See Instructions?Topically daily ? Inpatient Medications Medications (17) Active SCHEDULED: (9) Aspirin 81 mg EC Tablet (aspirin 81 mg oral delayed release tablet) ??81 mg, By Mouth, Daily Atorvastatin 80 mg Tablet (atorvastatin 80 mg oral tablet) ??80 mg, By Mouth, Daily Daptomycin 500 mg Inj (DAPTOmycin Inj) ??600 mg 12 mL, IV Push Slowly, Every 24 hours Gabapentin 300 mg Capsule (gabapentin 300 mg oral capsule) ??300 mg, By Mouth, 2 times a day Insulin Glargine (Lantus Inj) ??42 units, Subcutaneous Injection, 2 times a day Insulin Lispro 100 units/mL Inj (3mL) (Insulin LISPRO Sliding Scale) ??2-10 units, Subcutaneous Injection, 3 times a day before meals Insulin Lispro 100 units/mL Inj (3mL) (Insulin LISPRO Sliding Scale) ??20-32 units, Subcutaneous Injection, 3 times a day before meals Metoprolol 50 mg XL Tablet (metoprolol 50 mg oral tablet, extended release) ??50 mg, By Mouth, Daily NaCl 0.9% Flush 3ml (NaCL 0.9% Flush) ??3 mL, IV Push, Every 8 hours CONTINUOUS: (0) PRN: (8) Acetaminophen 325 mg Tablet (Acetaminophen Tablet) ??650 mg, By Mouth, Every 4 hours Dextromethorphan-Guaifenesin 20 mg-200 mg/10 mL Liqu UD (Robitussin DM Liquid) ??10 mL, By Mouth, Every 4 hours Docusate Sodium 100 mg Capsule (Docusate Sodium Capsule) ??100 mg 1 capsule, By Mouth, 2 times a day Melatonin 3 mg Tablet (Melatonin Tablet) ??3 mg, By Mouth, Daily at bedtime NaCl 0.9% Flush 3ml (NaCL 0.9% Flush) ??3 mL, IV Push, Every 8 hours Polyethylene Glycol 17 Gm Powder (MiraLax Powder) ??17 Gm 1 pack/packet, By Mouth, Daily Senna Tablet ??8.6 mg 1 tablet, By Mouth, 2 times a day Simethicone 80 mg Chewable Tablet (Simethicone Tablet) ??80 mg, Chew, 3 times a day ? Results Recent Labs BLOOD COUNT & DIFF WBC 13.2 k/mm3 (High)?? 07/27/2023 05:21 RBC 3.30 m/mm3 (Low)?? 07/27/2023 05:21 Hgb 9.1 Gm/dL (Low)?? 07/27/2023 05:21 Hct 27.8 % (Low)?? 07/27/2023 05:21 MCV 84.2 femtoliters ()?? 07/27/2023 05:21 MCH 27.6 pg ()?? 07/27/2023 05:21 MCHC 32.7 g/dL (Low)?? 07/27/2023 05:21 Platelet Count 415 k/mm3 ()?? 07/27/2023 05:21 RDW-SD 49.0 femtoliters (High)?? 07/27/2023 05:21 MPV 9.0 femtoliters (Low)?? 07/27/2023 05:21 Nucleated RBC (Automated) 0.0 #/100 WBC'S ()?? 07/27/2023 05:21 Abs. NRBC 0.0 k/mm3 ()?? 07/27/2023 05:21 ?? CHEM GENERAL Sodium 130 mmol/L (Low)?? 07/27/2023 05:21 Potassium 4.2 mmol/L ()?? 07/27/2023 05:21 Chloride 95 mmol/L (Low)?? 07/27/2023 05:21 Bicarbonate Level 24 mmol/L ()?? 07/27/2023 05:21 Anion Gap 11 ()?? 07/27/2023 05:21 Glucose Level 180 mg/dL (High)?? 07/27/2023 05:21 Glucose, POC 161 mg/dL (High)?? 07/28/2023 20:06 BUN 7 mg/dL ()?? 07/27/2023 05:21 Creatinine-Blood 0.7 mg/dL ()?? 07/27/2023 05:21 Estimated GFR Creatinine 113 ML/MIN/1.73 M2 ()?? 07/27/2023 05:21 Calcium 7.7 mg/dL (Low)?? 07/27/2023 05:21 Magnesium 2.0 mg/dL ()?? 07/27/2023 05:21 ?? URINE OTHER Est Creatinine Clearance 140.31 mL/min ()?? 07/27/2023 07:52 ? Hospital Progress note * Lima Bennett RN: PERFORM, SIGN, VERIFY Event Display: Progress Note Hospital Authored Date: [id number] Patient: MARINO KUO Age: 48 years Sex: Male : 1975 Associated Diagnoses: None Author: Lima Bennett RN Findings Problem Related to Alteration in Comfort 08/02/2023 4:00 EST Alteration in Comfort Related to Surgery Goals & Outcomes: Comfort Pt will report acceptable level of comfort & pain control, Pt will state importance of adhering to pain strategy regime, Pt will demonstrate necessary skills to manage pain, Non-verbal indicators will indicate comfort/pain control Interventions Implemented: Comfort Assess pain using appropriate pain scale/tools, Assess aggravating factors & prevent them accordingly, Assess alleviating factors & promote them accordingly Goals/Interventions, Comfort Yes Comfort, Problem Start 08/02/2023 4:43 Reviewed plan with, Comfort Patient Patient Progression, Comfort Plan Initiation Comfort, Problem Ongoing Yes . Alteration in Integumentary : Alteration in Integumentary/new 08/02/2023 4:00 EST Alteration in Integumentary Related to Unstageable Goals & Outcomes, Integumentary Nutritional intake is adequate for metabolic needs Interventions, Integumentary Resolved problem, Interventions no longer in effect Goals/Interventions, Integumentary Yes Integumentary, Problem Start 07/29/2023 4:37 Reviewed plan with, Integumentary Patient Patient Progression, Integumentary Resolved problem Integumentary, Problem Resolved 08/02/2023 4:42 . Alteration in Musculoskeletal : Alteration in Musculoskeletal Func/new 08/02/2023 4:00 EST Alteration in Musculoskeletal Related to Other: bka Goals & Outcomes, Musculoskeletal Affected extremity will maintain color/motion/sensation, Pt able to perform ADL's to best of ability, Pt demonstrates precautions/exercise/ transfers per protocol, Pt will ambulate safely with assistive device, Pt will be free from complications of immobility, Pt will demonstrate ability to participate in ADL's, Pt will report acceptable level of comfort/painrelief Interventions, Musculoskeletal Monitor patients ambulation status, monitor Color/Motion/Sensation, Assist with repositioning, Encourage deep breathing & coughing exercises, Notify MD immediately if tissue perfusion deteriorates, Obtain assistive devices as needed, Teach & Encourage use of Incentive spirometer, Teach Pt/caregiver on ADL's & adaptive equipment, Teach Pt/caregiver on exercises, Teach pt/caregiver on use of pain scale, Teach Pt/caregiver complications of immobility, Teach Pt/caregiver techniques to increase mobility, Teach Pt/caregiver on safety precautions, Incision care as ordered Goals/Interventions, Musculoskeletal Yes Musculoskeletal, Problem Start 08/02/2023 4:42 Reviewed Plan with, Musculoskeletal Patient Patient Progression, Musculoskeletal Plan Initiation . Alteration in Psychosocial : Alteration in Psychosocial Function/new 08/02/2023 4:00 EST Alteration in Psychosocial Related to Ineffective coping Goals & Outcomes, Psychosocial Psychosocial support will be provided to Pt/S.O. as needed, Pt will identify stressors leading up to event, Pt will state importance of adhering to medication regime, Pt/caregiver will be offered appropriate resources & support, Pt/caregiver will express feelings/needs/fears /concerns, Pt/caregiver will maintain/obtain psychological stability, Pt/caregiver will participate in coping skill counseling Interventions, Psychosocial Assess psychosocial needs, Assess readiness to learn needed lifestyle changes, Assess/monitor level of consciousness, Evaluate resources & support system available to pt, Offer support; discuss coping strategies, Provide a calm, supportive environment, Provide chances to express concerns/emotions/expectations, Provide info on community resources for education, support, Provide information about illness and recovery, Provide verbal limits if pt's behavior escalates Goals/Interventions, Psychosocial Yes Psychosocial, Problem Start 08/02/2023 4:43 Reviewed Plan with, Psychosocial Patient Patient Progression, Psychosocial Plan Initiation . Evaluation a/ox4, vss. Endorsing pain in surgical site, counseled on multimodal pain approach, pt agreeable totaking PO oxy prior to dilaudid; medicated per mar w/ good effect. Dressing change as ordered, incision clean and dry, well approximated, all tiago intact, no drainage noted. Skin to stump purple/bl anchable, warm, +popliteal pulse. Medicine team to bedside to assess color, no new orders at this time, pt encouraged to elevate. Voiding in urinal w/ assistance. PO abx given as ordered. See biophysical for full assessment. All safety protocols in place maintained, continuing purposeful hourly rounds to assess for needs/safety. Discharge Information Case Management Discharge Plan : Case Management Discharge Plan Data 07/28/2023 20:11 EST Discharge Level of Care at Discharge Short-term Acute Inpatient Rehabilitation Discharge : Rehab Discharge Index 08/01/2023 15:00 EST Comments on treatment indicated ADL, func mob, safety, pt edu Full chart review completed Yes 08/01/2023 12:39 EST Comments on treatment indicated 48 M s/p (L) BKA. INDEP baseline and lives with family. st floor set-up and 1 NALLELY. Pt Sarath with bed<>chair with RW on eval. See for strength, balance, endurance, safety, mobility. Pt refusing rehab. Home with PT and w/c. Walker: distance < 10 Distance pt will ambulate bed<>chair Full chart review completed Yes Plan of care PT Gait training, Transfer training, Therapeutic exercise, Functional Activities, Balance training * Alexa WIGGINS, Diana: PERFORM Event Display: Progress Note Hospital Authored Date: Patient: ??MARINO KUO ? Age:??48 Years?Sex:??Male?:??1975?? Subjective Patient seen and examined Complaining of left stump pain Denies any chest pain shortness of breath nausea vomiting diarrhea Pending PT, OT evaluation Review of Systems All systems were reviewed and are negative unless mentioned above Allergies Allergies ?(Active and Proposed Allergies Only) doxycycline? (Severity: Unknown severity, Onset: Unknown) ?Reactions: Rash vancomycin? (Severity: Persistent Severe, Onset: Unknown) ? Objective Measurements?? Height: 182 cm (07/31/23) Weight: 136.2 kg (07/29/23) Dry Weight: 136.2 kg (07/29/23) Body Mass Index:??41.12 kg/m2??Critical (07/29/23) ? Vital Signs?? Temperature: 97.7 DegF (08/01/23 04:00:00) Temperature Route: Oral (08/01/23 04:00:00) Pulse Rate: 78 bpm (08/01/23 08:56:00) Respiratory Rate: 18 br/min (08/01/23 10:22:00) Respiratory Rate: 18 br/min (08/01/23 10:22:00) Respiratory Rate: 18 br/min (08/01/23 10:22:00) Systolic Blood Pressure:??142 mm Hg??High (08/01/23 08:56:00) Diastolic Blood Pressure: 80 mm Hg (08/01/23 08:56:00) Blood pressure sites: Arm, left (08/01/23 04:00:00) Mean Arterial Pressure: 65 mm Hg (07/31/23 14:00:00) Pulse Pressure: 42 mm Hg (08/01/23 04:00:00) Oxygen Saturation: 99 % (08/01/23 04:00:00) Mode of Delivery (Oxygen): Room air (08/01/23 04:00:00) Early Warning Score: 3 (08/01/23 11:51:58) ? Intake/Output? 07/28 21:07 08/01 07:00 07/31 07:00 07/30 07:00 07/29 07:00 ?? 08/01 12:27 08/01 12:27 08/01 06:59 07/31 06:59 07/30 06:59 Intake ?820 ?120 ?0 ?0 ?700 Output ? 5360 ?700 ? 2100 ? 1960 ?600 Net Total ?-4540 ? -580 ?-2100 ?-1960 ?100 ? Urine Count ?7 ?0 ?1 ?5 ?1 ? Physical Exam General: Alert, NAD. HEENT: Normocephalic. Respiratory: Clear to auscultation. No wheezing, rales or rhonchi. Cardiovascular: RRR. No murmurs, rubs or gallops. Gastrointestinal: Abdomen soft, non-tender, non-distended. + bowel sounds. Neurologic: Moves all extremities spontaneously. Skin: No rashes or lesions. Extremities: No cyanosis or clubbing. ??Left BKA present, covered in dressing Psychiatric: appropriate mood and affect _ Home Medications Acetaminophen (acetaminophen 325 mg oral tablet)?650?Milligram?By Mouth?Every 4 hours?as needed?Temperature Greater than 100.5?Pain , Mild Aspirin (aspirin 81 mg oral delayed release tablet)?81?Milligram?By Mouth?Daily Atorvastatin (atorvastatin 80 mg oral tablet)?1?tab(s)?80?Milligram?By Mouth?Daily Daptomycin (DAPTOmycin 500 mg intravenous injection)?6?Milligrams/Kilogram Docusate (docusate sodium 100 mg oral capsule)?1?capsule?100?Milligram?By Mouth?2times a day?for 10?Days Enoxaparin?0.4?Milliliter?40?Milligram?Subcutaneous Injection?2 times a day Gabapentin (gabapentin 300 mg oral capsule)?300?Milligram?1?capsule?By Mouth?2 times a day Insulin Glargine (Lantus Inj)?0.75?Milliliter?75?unit(s)?Subcutaneous Injection?2times a day Insulin Lispro (insulin lispro 100 u/ml subcutaneous injection)?20-35 units?Subcutaneous Injection?3 times a day before meals?<< Sliding Scale Comments >>100 - 149 ?? 20 unitsCall if less than [id number] - 199 ?? 23 units 200 - 249 ?? 26 units 250 - 299 ?? 29 units 300 - 349 ?? 32 units 350 - 399 ?? 35 units Call if greater than 400<< Sliding Scale Comments >> Levofloxacin (levoFLOXacin 750 mg oral tablet)?750?Milligram?By Mouth?Every 24 hours?for 6?week(s) Metoprolol (metoprolol succinate 50 mg oral capsule, extended release)?1?capsule?50?Milligram?By Mouth?Daily?start on 04/16 Piperacillin-Tazobactam?3.375?gram?IVPB?Every 8 hours Sodium Hypochlorite Topical (sodium hypochlorite 0.0125% topical solution)?See Instructions?Topically daily ? Inpatient Medications Medications (21) Active SCHEDULED: (11) Acetaminophen 325 mg Tablet (Acetaminophen Tablet) ??975 mg, By Mouth, Every 6 hours Aspirin 81 mg EC Tablet (aspirin 81 mg oral delayed release tablet) ??81 mg, By Mouth, Daily Atorvastatin 80 mg Tablet (atorvastatin 80 mg oral tablet) ??80 mg, By Mouth, Daily Clindamycin 150 mg Capsule (Clindamycin Capsule) ??450 mg, By Mouth, Every 6 hours Enoxaparin 40 mg Inj (Enoxaparin Inj) ??40 mg 0.4 mL, Subcutaneous Injection, 2 times a day Gabapentin 300 mg Capsule (gabapentin 300 mg oral capsule) ??300 mg, By Mouth, 2 times a day Insulin Glargine 100 units/mL Inj (Lantus Inj) ??75 units 0.75 mL, Subcutaneous Injection, 2 times a day Insulin Lispro 100 units/mL Inj (3mL) (Insulin LISPRO Sliding Scale) ??20-32 units, Subcutaneous Injection, 3 times a day before meals Metoprolol 50 mg XL Tablet (metoprolol 50 mg oral tablet, extended release) ??50 mg, By Mouth, Daily NaCl 0.9% Flush 3ml (NaCL 0.9% Flush) ??3 mL, IV Push, Every 8 hours Saccharomyces Boulardii Lyo 250 mg Caps (saccharomyces boulardii lyo 250 mg oral capsule) ??250 mg,By Mouth, 2 times a day CONTINUOUS: (0) PRN: (10) Dextromethorphan-Guaifenesin 20 mg-200 mg/10 mL Liqu UD (Robitussin DM Liquid) ??10 mL, By Mouth, Every 4 hours diphenhydrAMINE 50 mg/mL Inj (Benadryl Inj) ??25 mg 0.5 mL, IV Push, 4 times a day Docusate Sodium 100 mg Capsule (Docusate Sodium Capsule) ??100 mg 1 capsule, By Mouth, 2 times a day HYDROmorphone 0.5 mg/0.5 mL Inj Syringe (Dilaudid Inj) ??0.5 mg 0.5 mL, IV Push Slowly, Every 4 hours Melatonin 3 mg Tablet (Melatonin Tablet) ??3 mg, By Mouth, Daily at bedtime NaCl 0.9% Flush 3ml (NaCL 0.9% Flush) ??3 mL, IV Push, Every 8 hours OxyCODONE 5 mg IR Tablet (oxyCODONE 5 mg oral tablet) ??5 mg, By Mouth, Every 4 hours Polyethylene Glycol 17 Gm Powder (MiraLax Powder) ??17 Gm 1 pack/packet, By Mouth, Daily Senna Tablet ??8.6 mg 1 tablet, By Mouth, 2 times a day Simethicone 80 mg Chewable Tablet (Simethicone Tablet) ??80 mg, Chew, 3 times a day ? 72 Hour Antibiotic History Active Antibiotics Calendar Day Last Administered First Administered Clindamycin??450 mg, By Mouth, Every 6 hours ?2 08/01/2023 09:03 07/31/2023 16:11 ? Stopped Antibiotics Stop Date/Time Last Administered First Administered Piperacillin-Tazobactam??3.375 Gm, 25 mL/hr, IVPB, Every 8 hours 07/31/2023 14:17 07/31/2023 09:15 07/29/2023 00:08 Daptomycin??600 mg, 12 mL, IV Push Slowly, Every 24 hours 07/31/2023 14:17 07/30/2023 16:19 07/30/2023 16:19 ? Results Recent Labs BLOOD COUNT & DIFF WBC 10.2 k/mm3 ()?? 08/01/2023 09:52 RBC 3.68 m/mm3 (Low)?? 08/01/2023 09:52 Hgb 9.9 Gm/dL (Low)?? 08/01/2023 09:52 Hct 32.0 % (Low)?? 08/01/2023 09:52 MCV 87.0 femtoliters ()?? 08/01/2023 09:52 MCH 26.9 pg (Low)?? 08/01/2023 09:52 MCHC 30.9 g/dL (Low)?? 08/01/2023 09:52 Platelet Count 669 k/mm3 (High)?? 08/01/2023 09:52 RDW-SD 51.8 femtoliters (High)?? 08/01/2023 09:52 MPV 8.3 femtoliters (Low)?? 08/01/2023 09:52 Nucleated RBC (Automated) 0.3 #/100 WBC'S ()?? 08/01/2023 09:52 Abs. NRBC 0.0 k/mm3 ()?? 08/01/2023 09:52 Abs. Neut 7.2 k/mm3 (High)?? 08/01/2023 09:52 Abs. Lymph 1.6 k/mm3 ()?? 08/01/2023 09:52 Abs. [place] 0.3 k/mm3 (Low)?? 08/01/2023 09:52 Abs. Eo 1.1 k/mm3 (High)?? 08/01/2023 09:52 Abs. Baso 0.0 k/mm3 ()?? 08/01/2023 09:52 Neut % 65.0 % ()?? 08/01/2023 09:52 Lymph % 16.0 % ()?? 08/01/2023 09:52 [place] % 3.0 % (Low)?? 08/01/2023 09:52 Eos % 11.0 % (High)?? 08/01/2023 09:52 Baso % 0.0 % ()?? 08/01/2023 09:52 Band % 5.0 % ()?? 08/01/2023 09:52 RBC Morphology MODERATE ()?? 08/01/2023 09:52 Platelet Estimate INCREASED ()?? 08/01/2023 09:52 ?? CARDIAC CK, Total 927 units/L (High)?? 07/31/2023 01:13 ?? CHEM GENERAL Sodium 133 mmol/L ()?? 07/31/2023 01:13 Potassium 5.1 mmol/L ()?? 07/31/2023 01:13 Chloride 98 mmol/L ()?? 07/31/2023 01:13 Bicarbonate Level 27 mmol/L ()?? 07/31/2023 01:13 Anion Gap 8 ()?? 07/31/2023 01:13 Glucose Level 293 mg/dL (High)?? 07/31/2023 01:13 Glucose, POC 169 mg/dL (High)?? 08/01/2023 08:29 BUN 6 mg/dL ()?? 07/31/2023 01:13 Creatinine-Blood 0.6 mg/dL (Low)?? 07/31/2023 01:13 Estimated GFR Creatinine 116 ML/MIN/1.73 M2 ()?? 07/31/2023 01:13 Calcium 7.7 mg/dL (Low)?? 07/31/2023 01:13 ? Urinalysis?? No qualifying data available. ?? Assessment/Plan ??MARINO KUO??is a??48 yo??M with??PMHx T2DM Complicated by Diabetic Foot Ulcer, CAD s/p SONY x 2, HTN, obesity who was transferred from [place] for vascular surgery consultation and likely amputation for osteomyelitis. ?? Sepsis (A41.9) r/t?? Foot osteomyelitis (M86.9) Pathologic Fracture of calcaneus (S92.009A) Gram-positive bacteremia (R78.81) Presented with left foot infection??[facility] Seen by vascular, ID there First started on Zosyn + daptomycin?? Patient is status post left??BKA on 07/29/2023 Status post nerve block by??APS Continue IV hydromorphone as needed, patient still having significant pain ?? Vascular team following and status post dressing change??on 07/31/2023 vascular team recommendations Multimodal pain control - Wound care: Betadine paint, DSD, Kerlix, shilpi wrap, stump sock and ampushield daily - Left BKA site: dressing change done??on 07/31/2023 - Maintain [place] in place - Continue abx - Tight glycemic control ?? PT OT evaluation requested??which is still pending ?? ID recommendations :Can transition to 2 weeks of clindamycin or linezolid if amputation is curativeof osteomyelitis CK level reviewed Patient's antibiotics switched from??Zosyn and daptomycin to p.o. clindamycin 450 every 8 hours??for 14 days, last day of antibiotics??08/12/2023 Patient's previous??blood cultures on 07/25??are??positive for bacillus species, repeat blood cultures are??07/27 or so far negative ? T2DM (type 2 diabetes mellitus) (E11.9) Hyperglycemia (R73.9) home reg: lantus 75 BID + SSI. At [facility] was receiving 75 U lantus BID ?? Along with high-dose slidingscale Patient currently on Lantus 70 twice daily??along with sliding scale insulin 20 to 32 units As patient's blood sugars are not controlled, Lantus dose changed to 75 twice daily Follow-up Accu-Cheks ? Hyponatremia (E87.1):??appearing euvolemic,??TSH, cortisol level normal Sodium level normalized ?? CHRONIC MEDICAL CONDITIONS: CAD (coronary artery disease) (I25.10):??Continue atorvastatin, aspirin, metoprolol HTN (hypertension) (I10):??metoprolol HLD (hyperlipidemia) (E78.5):??statin Anemia (D64.9):??Appears chronic on chart review. ??H&H stable.? Code Status: Full? Diet: Diabetic? DVT PPX: Lovenox SC? Access: PIV ? Discharge planning PT OT evaluation requested Plan for discharge after PT OT evaluation and pain control Patient does not want to go to rehab Plan for discharge tomorrow??after pain control and PT OT evaluation Diagnoses Anemia ??(D64.9) Fracture of calcaneus ??(S92.009A) HLD (hyperlipidemia) ??(E78.5) STEMI (ST elevation myocardial infarction) ??(I21.3) 1. ??CAD (coronary artery disease) ??(I25.10) 2. ??T2DM (type 2 diabetes mellitus) ??(E11.9) 3. ??Foot osteomyelitis ??(M86.9) 4. ??Diabetic foot ulcer ??(E11.621) 5. ??Hyperglycemia ??(R73.9) 6. ??HTN (hypertension) ??(I10) 7. ??Sepsis ??(A41.9) 8. ??Gram-positive bacteremia ??(R78.81) 9. ??Hyponatremia ??(E87.1) ? * Farhana May RN: PERFORM, SIGN, VERIFY, MODIFY, SIGN Event Display: Progress Note Hospital Authored Date: Patient: MARINO KUO Age: 48 years Sex: Male : 1975 Associated Diagnoses: None Author: Farhana May RN Findings Problem Related to Alteration in Integumentary : Alteration in Integumentary/new 08/01/2023 12:18 EST Alteration in Integumentary Related to Unstageable Goals & Outcomes, Integumentary Nutritional intake is adequate for metabolic needs Interventions, Integumentary Keep linen clean, dry and wrinkle free, Keep skin clean & dry, Minimize friction, shear and moisture, Monitor reddened areas for continued or increasing reddness, Teach Pt/caregiver s/s of infection BH Goals/Interventions, Integumentary Yes Integumentary, Problem Start 07/29/2023 4:37 Reviewed plan with, Integumentary Patient Patient Progression, Integumentary Pt progressing according to plan . Evaluation Vital signs stable/afebrile/alert & oriented x4. Lung sounds diminished bilaterally, denies shortness of breath/cough, 95% on room air. +bs, abd distended, denies nausea or vomiting- tolerating carb controlled diet. FSBS ACHS with sliding scale coverage as ordered. Pills whole thin liquids. Voiding in urinal. Remains on bedrest due to awaiting PT/OT eval. Patient found belligerent and screaming at the start of shift - stating i am getting up to go to the bathroom . Patient is s/p L BKA - dressing with ampushield in place. RN educated patient on strict bedrest until PT/OT eval done. At this time, patient also demanded pain medicine for a pain level of 10/10 in LLE. 5mg oxycodone attempted to be administered- patient refused and stated Unless I get my IV dilaudid- I will not take any pain medicine . 5mg oxy wasted with chemical processing supervisor Lily & IV dilaudid administered. Provider at bedside- aware of plan of care. Patient educated on tolerance for verbal abuse of staff- de-escalated. Purposeful hourly rounding completed, safety checks done.. Discharge Information Case Management Discharge Plan : Case Management Discharge Plan Data 07/28/2023 20:11 EST Discharge Level of Care at Discharge Short-term Acute Inpatient * Farhana May RN: PERFORM Event Display: Progress Note Hospital Authored Date: 1500 Patient medicated at 1330 for 7/10 pain with IVP dilaudid. Worked with OT- supervision with transfer to wheelchair. Consult note * Delfino Gomez NP: PERFORM, MODIFY, MODIFY Event Display: Consultation Note Authored Date: Patient: ??MARINO KUO ? Age:??48 Years?Sex:??Male?:??1975?? Chief Complaint/Reason for Consult Requesting Physician: Dr Liu Consulted Physician: Dr Foster Reason for Consult: Left Heel Wound History of Present Illness Marino Kuo is a 48 year old male with PMH significant for DMII, HTN, HLD, STEMI s/p SONY RCA/LAD (03/2022), chronic venous stasis.?? He is well known to the vascular service, having recently undergone left heel debridement (06/10, Dr. Foster), left lower extremity angiogram and redebridement (06/16 Dr. Ocasio), redebridement (07/07 Dr. Davis), and bedside debridement on 07/11.?? He also had wound vac placement, since stopped?? He had weakness and fever on 07/25 for which he presented to the [place] ED.?? His ER admit vitals were temperature 97.6, heart rate 84, blood pressure 115/65, 96% on room air.?? Labs are notable for leukocytosis to 11.4 with hemoglobin hematocrit of 9.7 and 29.9 with left shift of 78.1, hyponatremia to 126 most likely in setting of hyperglycemia with glucose of350, calcium 8.1, albumin 2.8 lactate of 2.8 with repeat 2.7 UA unremarkable.?? Chest x-ray was performed which showed no acute abnormality.?? He was admitted and found to have positive blood cultures, growing bacillus.??ID was consulted for bacteremia and was seen by Dr Foster for left heel wound.?? He was transferred to [facility] for further care.?? He continues to spike fevers despite antibiotics.?? Given these results, a vascular surgery consult was requested.?? Review of Systems Constitutional:??No weight loss, fever, [...] ataxia, numbness or tingling in the extremities. Musculoskeletal:??No muscle pain, back pain, joint pain or stiffness. Hematologic/Lymphatics:??No bleeding or bruising. No painful lymph nodes. Skin:??No rash or itching. Endocrine:??No reports of sweating. No cold or heat intolerance. No polyuria or polydipsia. Psychiatric:??No depression or anxiety. Physical Exam Vitals & Measurements T:??98.2?F?? HR:??97??(Peripheral)?? RR:??17?? BP:??136/61?? SpO2:??100%?? HT:??182??cm?? WT:??136.2??kg?? BMI:??41.12?? General appearance: No apparent distress, appears stated age, well developed. Head: Normocephalic, atraumatic. Cardiac: RRR, no murmurs or gallops. Respiratory: Clear to auscultation bilaterally. Abdomen: Soft, nontender, nondistended. No guarding or rebound. No palpable mass. Skin: Left heel with norris tissue and bone, purulent discharge.?? Foul odor.?? Extremities: Able to move all extremities without difficulty. Warm and well perfused. Neurologic status: Alert and oriented x 3. No focal deficits. Psych: Mood and affect normal. Vascular:??Left BP3 Assessment/Plan Marino Kuo is a 48 year old male with poorly controlled diabetes and chronic left heel wound who presented to [facility] and found to have bacteremia.?? His left heel wound is thought to bethe source.?? X-ray positive for osteomyelitis, couple with exposed bone.?? He continues on Zosyn and Daptomycin for bacteremia.?? Given he continues to spike fevers, we will add him on to the OR today. ?? Recommendations: - NPO for OR today - Continue abx - Tight glycemic control - Rest of care as per primary team ?? Thank you for this consult.?? Vascular will follow.?? Recs conveyed via [employer].?? [id number] ?? Discussed with Dr Foster Problem List/Past Medical History Ongoing Bacterial cellulitis CAD (coronary artery disease) Constipation Diabetic foot infection Diabetic foot ulcer Diabetic foot ulcers Encounter for screening colonoscopy Fever Foot osteomyelitis Gram-positive bacteremia HTN (hypertension) Hyperglycemia Hyperglycemia due to diabetes mellitus Hyponatremia Insulin dependent type 1 diabetes mellitus Lactic acid acidosis Sepsis Severe obesity STEMI (ST elevation myocardial infarction) T2DM (type 2 diabetes mellitus) Procedure/Surgical History No qualifying data available. Home Medications Acetaminophen: 650 mg, By Mouth, Every 4 hours, PRN (Pain , Mild), Temperature Greater than 100.5 Aspirin: 81 mg, By Mouth, Daily Atorvastatin: 80 mg = 1 tablet, By Mouth, Daily Daptomycin: 6 mg/kg Docusate: 100 mg = 1 capsule, By Mouth, 2 times a day Enoxaparin: 40 mg = 0.4 mL, Subcutaneous Injection, 2 times a day Gabapentin: 300 mg = 1 capsule, By Mouth, 2 times a day Insulin Glargine: 75 units = 0.75 mL, Subcutaneous Injection, 2 times a day Insulin Lispro: 20-35 units, Subcutaneous Injection, 3 times a day before meals, << Sliding Scale Comments >>100 - 149 ?? 20 units Call if less than [id number] - [phone] ?? 23 units 200 - 249 ?? 26 units 250 - 299 ?? 29 units 300 - 349 ?? 32 units 350 - 399 ?? 35 units Call if greater than 400<< Sliding Scale Comments >> Levofloxacin: 750 mg, By Mouth, Every 24 hours Metoprolol: 50 mg = 1 capsule, By Mouth, Daily, start on 04/16 Piperacillin-Tazobactam: 3.375 Gm, IVPB, Every 8 hours Sodium Hypochlorite Topical: See Instructions, Topically daily Allergies vancomycin doxycycline??(Rash) Social History Alcohol Use: Past. Frequency: 1-2 times per year. Substance Abuse Use: pt denies. Tobacco Use: pt denies. Family History No family history recorded. Lab Results Labs Last 24 Hours BLOOD COUNT & DIFF ? Event Name?? Event Result?? Date/Time?? WBC 13.7 k/mm3??High 07/29/23 07:32:00 RBC 3.55 m/mm3??Low 07/29/23 07:32:00 Hgb 9.3 Gm/dL??Low 07/29/23 07:32:00 Hct 30.5 %??Low 07/29/23 07:32:00 MCV 85.9 femtoliters 07/29/23 07:32:00 MCH 26.2 pg??Low 07/29/23 07:32:00 MCHC 30.5 g/dL??Low 07/29/23 07:32:00 Platelet Count 465 k/mm3??High 07/29/23 07:32:00 MPV 8.5 femtoliters??Low 07/29/23 07:32:00 Nucleated RBC (Automated) 0 #/100 WBC'S 07/29/23 07:32:00 ? CHEM GENERAL ? Event Name?? Event Result?? Date/Time?? Sodium 130 mmol/L??Low 07/29/23 07:32:00 Chloride 95 mmol/L??Low 07/29/23 07:32:00 Bicarbonate Level 25 mmol/L 07/29/23 07:32:00 Anion Gap 10 07/29/23 07:32:00 Glucose Level 227 mg/dL??High 07/29/23 07:32:00 BUN 8 mg/dL 07/29/23 07:32:00 Creatinine-Blood 0.7 mg/dL 07/29/23 07:32:00 ? * Hortensia DIALLO, Shelbie Beck: PERFORM, MODIFY, MODIFY, MODIFY, MODIFY, MODIFY, MODIFY, MODIFY, MODIFY Event Display: Consultation Note Authored Date: Patient: ??MARINO KUO ? Age:??48 Years?Sex:??Male?:??1975?? Reason for Consultation L calcaneal osteomyelitis Requested by Dr. Blanca Medina/KAYLEY Garcia Source of Information [facility], patient?? History of Present Illness Date: 07/29/2023 Infectious Diseases Attending: Dr. Sandoval ?? The patient is a 48-year-old male with a past medical history of type I diabetes on insulin, PAD, HTN, CAD s/p PCI, chronic venous stasis, chronic left heel wound for about 7+ weeks s/p OR debridement (06/10/23, Dr. Foster) and LLE angiogram with further debridement (06/16/23, Dr. Ocasio), with recent hospitalization 07/06-07/13 for left heel wound infection with underlying osteomyelitis s/p I&D of abscess with notation of necrotic calcaneal bone (07/07/23, Dr. Davis) and bedside debridement 07/11 with growth of on bone of Group G Strep, Proteus mirabilis, Morganella morganii. He was seen by ID treated with piperacillin/tazobactam -> Unasyn -> levofloxacin on discharge planned for 6 weeks until 08/18. ?? He was readmitted to [facility] 07/25 with fevers found to have Bacillus bacteremia, he was febrile to 101.6 with otherwise stable vitals.?? WBC count 11.4 with neutrophilic predominance, lactate 2.8, ESR 115, CRP 2.8.?He was??transferred to [facility] 07/28 with plan by vascular surgery for potential ??amputation.?? He was seen by ID Dr. Shah at [place] and was started on piperacillin/tazobactam and daptomycin with plan for 2 weeks of clindamycin on linezolid if amputation is curative of osteomyelitis. Current Tmax 101.3, leukocytosis of 13.7 with AEC 1000.?Vascular plans to take him to the OR today. ?? Medications: Reviewed Antimicrobial Allergies: Doxycycline-itching on back concerned that he may have been starting to develop a rash no sun exposure,??Vancomycin- I felt like I was choking and blacked out, I woke up with cardiac things on my chest and chaos 6- 7 years ago at [facility] Family History:??No relevant history of infectious issues in first degree relatives.?? Social History and Infectious Diseases Exposure History: Denies tobacco, heavy alcohol,??or illicitdrug use.?? Review of Systems He endorses a dry cough x3-4 days. He denies rigors, shortness of breath, abdominal pain, nausea, vomiting, diarrhea, dysuria, arthralgias, muscle aches, or rash. ?? Physical Exam Vitals & Measurements Vital Signs?? Temperature: 98.2 DegF (07/29/23 09:23:00) Temperature Route: Oral (07/29/23 09:23:00) Pulse Rate:??97 bpm??High (07/29/23 09:23:00) Respiratory Rate: 17 br/min (07/29/23 10:06:00) Systolic Blood Pressure: 136 mm Hg (07/29/23 09:23:00) Diastolic Blood Pressure: 61 mm Hg (07/29/23 09:23:00) Blood pressure sites: Arm, left (07/29/23 09:23:00) Mean Arterial Pressure: 86 mm Hg (07/29/23 09:23:00) Pulse Pressure: 75 mm Hg (07/29/23 09:23:00) Oxygen Saturation: 100 % (07/29/23 09:23:00) Mode of Delivery (Oxygen): Room air (07/29/23 09:23:00) Early Warning Score: 0 (07/29/23 10:18:27) ?? GENERAL:??Alert, in no acute distress.?? HEENT: Anicteric, no subconjunctival petechiae. Moist oral mucosa without lesions or thrush. CARDIOVASCULAR:??Regular rate and rhythm. Not able to appreciate any murmurs, rubs, or gallops. No peripheral edema. No peripheral stigmata of endocarditis.?? RESPIRATORY:??Lungs clear to auscultation.??On room air. GASTROINTESTINAL: Non-distended, normoactive bowel sounds, non-tender. MUSCULOSKELETAL: No gross deformity. SKIN: ??No diffuse rash present. Pale. LE venous stasis changes. L foot dressing not taken down perrequest as it was just changed. NEUROLOGICAL/PSYCH:??A&Ox3, grossly intact.?? LINES:??PIV without erythema or pain.? Micro Blood cultures x2 07/27/23: NGTD Blood cultures x2 07/26/23: NGTD Blood cultures x2 07/25/23: 1/2 Bacillus species Left calcaneal bone cultures 07/07/2023: Proteus mirabilis, Morganella morganii, group G Strep Assessment/Plan Mr. Kuo??is a 48-year-old male with a past medical history of type I diabetes on insulin, PAD,HTN, CAD s/p PCI, chronic venous stasis, chronic left heel wound for about 7+ weeks s/p OR debridement (06/10/23, Dr. Foster) and LLE angiogram with further debridement (06/16/23, Dr. Ocasio), with recent hospitalization 07/06-07/13 for left heel wound infection with underlying osteomyelitis s/p I&D of abscess with notation of necrotic calcaneal bone (07/07/23, Dr. Davis) and bedside debridement 07/11 with growth of on bone of Group G Strep, Proteus mirabilis, Morganella morganii. He wasseen by ID treated with piperacillin/tazobactam -> Unasyn -> levofloxacin on discharge planned for 6 weeks until 08/18, now transferred from [place] following admission for Bacillus bacteremia, fevers, L heel infection/osteomyelitis. Repeat blood cultures with NGTD. He plans to undergo curativeBKA today. Previous plan by Dr. Shah for 2 weeks of clindamycin or linezolid if amputation is curative of osteomyelitis. Can continue with this plan. Linezolid should not be continued for more than 2 weeks due to concern for permanent peripheral neuropathy, optic neuritis, myelosuppression with prolonged use. ??If there is concern for ongoing LE infection post op please reach out to ID. Of note, AEC is elevated to 1000 and the patient reports a dry cough although no shortness of breath of O2 req uirements. Unlikely to be daptomycin induced eosinophilic pneumonia although medications will be transitioning soon regardless. ?? - Can transition to 2 weeks of clindamycin or linezolid if amputation is curative of osteomyelitis - Obtain CK ? ID will sign-off at this time. ??Thank you for the consultation. ??Please call if any questions arise. ?? OVIDIO Griffin- Division of Infectious Diseases ?? Discussed with Dr. Sandoval (This note was dictated using the [employer] software and any typographical/grammatical errors were notdeliberate. Please contact provider for clarifications.) Problem List/Past Medical History Ongoing CAD (coronary artery disease) Diabetic foot infection HTN (hypertension) Severe obesity STEMI (ST elevation myocardial infarction) Antibiotic History Active Antibiotics Calendar Day Last Administered First Administered Piperacillin-Tazobactam??3.375 Gm, 25 mL/hr, IVPB, Every 8 hours ?1 07/29/2023 09:06 07/29/2023 00:08 ? Recent Antimicrobials Daptomycin 07/27- present Zosyn 07/26- present Allergies vancomycin doxycycline??(Rash) Social History Alcohol Use: Past. Frequency: 1-2 times per year. Substance Abuse Use: pt denies. Tobacco Use: pt denies. Test Name Test Result Date/Time WBC 13.7 k/mm3 07/29/2023 07:32 EST Hgb 9.3 Gm/dL 07/29/2023 07:32 EST Platelet Count 465 k/mm3 07/29/2023 07:32 EST Sodium 130 mmol/L 07/29/2023 07:32 EST Potassium 4.8 mmol/L 07/29/2023 07:32 EST Creatinine-Blood 0.7 mg/dL 07/29/2023 07:32 EST Est Creatinine Clearance 138.67 mL/min 07/29/2023 08:51 EST Diagnostic Results (07/26/2023 19:10 EST Foot Min 3 Views Left) FINDINGS: There is a new fracture, presumably pathologic, involving the body of the calcaneus with moderate angulation at the fracture site. There is bone destruction within the calcaneal body more pronounced than in the prior study. No other fracture or dislocation is present. Bone mineralization is otherwise normal. No arthritic changes. The subtalar joint is disrupted posteriorly. Other joint spaces are preservedthroughout.?? There is a large plantar soft tissue wound at the location of the calcaneal fracture, increased in size from the prior study. There is stable dystrophic calcification more anteriorly along the plantar fascia. Soft tissue swelling along the dorsum of the foot is stable. ?? IMPRESSION:?? Interval pathologic fracture of the body of the calcaneus with angulation at the fracture site and disruption of the subtalar joint posteriorly. Increased size of soft tissue wound along the heel with increased calcaneal bone destruction since 07/06/2023 consistent with substantial progression of osteomyelitis.?? [1] Images 2023-07-26 14:05:27 [1]??Foot Min 3 Views Left; Marino Kumar MD 07/26/2023 19:10 EST * Nazia Sandoval MD: PERFORM Event Display: Consultation Note Authored Date: [id number] Attending Attestation: I have discussed the case and its management with the??WAX PATTERN REPAIRER and agree with thefindings and plan as documented in the WAX PATTERN REPAIRER's note. Note * Brandy Kirk RN: PERFORM Event Display: Discharge/Transfer Note Hospital Authored Date: Nursing Discharge Note Entered On: 08/02/2023 11:16 EST Performed On: 08/02/2023 11:16 EST by Brandy Kirk RN Nursing Discharge Note 2 Discharge Time : 08/02/2023 11:16 EST Discharge Level of Care at Discharge : Homehealth/VNA Discharge VNA/Hospice/Home Care(v001) : [facility] [phone] Patient Left Unit Via : Wheelchair Patient Accompanied Off Unit with : Responsible adult DC Instructions Provided & Signed by Pt : Yes Patient Understands D/C Instructions : Yes Patient Instructions Discharge Signed : Yes Discharge Comments : Patient was A&Ox4. Left unit with and son in wheelchair. Home with VNA. Did Pt have Specialty Bed or Wound Vac : No Brandy Kirk RN - 08/02/2023 11:16 EST * Diana Liu MD: PERFORM Event Display: Discharge/Transfer Note Hospital Authored Date: [id number] Patient: ??MARINO KUO ? Age:??48 Years?Sex:??Male?:??1975?? Patient Information Discharge Location: [facility] Primary Care Physician: Juan Mondragon DO Admit Date/Time: 07/28/23 21:07 Discharge Disposition Discharge Disposition: Home with Home Health Discharge Diagnosis CAD (coronary artery disease) (I25.10) T2DM (type 2 diabetes mellitus) (E11.9) Foot osteomyelitis (M86.9) Diabetic foot ulcer (E11.621) Hyperglycemia (R73.9) HTN (hypertension) (I10) Sepsis (A41.9) Gram-positive bacteremia (R78.81) Hyponatremia (E87.1) Anemia (D64.9) Fracture of calcaneus (S92.009A) HLD (hyperlipidemia) (E78.5) STEMI (ST elevation myocardial infarction) (I21.3) ?? _ Discharge Medications Acetaminophen (acetaminophen 325 mg oral tablet)?650?Milligram?By Mouth?Every 4 hours?as needed?Temperature Greater than 100.5?Pain , Mild Aspirin (aspirin 81 mg oral delayed release tablet)?81?Milligram?By Mouth?Daily Atorvastatin (atorvastatin 80 mg oral tablet)?1?tab(s)?80?Milligram?By Mouth?Daily Clindamycin (clindamycin 300 mg oral capsule)?2?capsule?600?Milligram?By Mouth?3 times a day?for 11?Days Docusate (docusate sodium 100 mg oral capsule)?1?capsule?100?Milligram?By Mouth?2times a day?for 10?Days Enoxaparin?0.4?Milliliter?40?Milligram?Subcutaneous Injection?2 times a day Gabapentin (gabapentin 300 mg oral capsule)?300?Milligram?1?capsule?By Mouth?2 times a day Hydromorphone (Dilaudid 2 mg oral tablet)?1?tab(s)?2?Milligram?By Mouth?Every 4 hours?as needed?Pain , Severe?for 7?Days Insulin Glargine (Lantus Inj)?0.75?Milliliter?75?unit(s)?Subcutaneous Injection?2times a day Insulin Lispro (insulin lispro 100 u/ml subcutaneous injection)?20-35 units?Subcutaneous Injection?3 times a day before meals?<< Sliding Scale Comments >>100 - 149 ?? 20 unitsCall if less than [phone] - 199 ?? 23 units 200 - 249 ?? 26 units 250 - 299 ?? 29 units 300 - 349 ?? 32 units 350 - 399 ?? 35 units Call if greater than 400<< Sliding Scale Comments >> Metoprolol (metoprolol succinate 50 mg oral capsule, extended release)?1?capsule?50?Milligram?By Mouth?Daily?start on 04/16 Polyethylene Glycol 3350 (MiraLax oral powder for reconstitution)?17?gram?By Mouth?Daily?for 14?Days Saccharomyces Boulardii Lyo (saccharomyces boulardii lyo 250 mg oral capsule)?250?Milligram?By Mouth?2 times a day?for 10?Days ? Quality Measures Chest Pain, AMI Quality Measures:? Medications Started Hydromorphone, clindamycin, Saccharomyces Medications Discontinued None?? Doses Changed None Allergies Allergies ?(Active and Proposed Allergies Only) doxycycline? (Severity: Unknown severity, Onset: Unknown) ?Reactions: Rash vancomycin? (Severity: Persistent Severe, Onset: Unknown) ? PCP Follow-Up/Heads-Up Patient needs CBC BMP in 5 to 7 days. Future Appointments Tuesday 8:40 AM EST ?? With: Nazia Sandoval MD Where: [facility] [address] [place] [address]- Status: Pending 2023 9:30 AM EST ?? With: Shantelle DIALLO, Nan Means Where: [facility] [address] [facility] [address] [place] [address]- Status: Pending 2023 8:15 AM EST ?? Where: [facility] Status: Pending Hospital Course ??MARINO KUO??is a??48 yo??M with??PMHx T2DM Complicated by Diabetic Foot Ulcer, CAD s/p SONY x 2, HTN, obesity who was transferred from [place] for vascular surgery consultation and amputation for osteomyelitis. ?? Sepsis (A41.9) r/t?? Foot osteomyelitis (M86.9) Pathologic Fracture of calcaneus (S92.009A) Gram-positive bacteremia (R78.81) Presented with left foot infection??[facility] Seen by vascular, ID there First started on Zosyn + daptomycin?? Patient is status post left??BKA on 07/29/2023 Status post nerve block by??APS Currently on IV hydromorphone, pain significantly improve Vascular team following and status post dressing change??on 07/31/2023 vascular team recommendations - Wound care: Betadine paint, DSD, Kerlix, shilpi wrap, stump sock and ampushield daily - Left BKA site: dressing change done??on 07/31/2023 - Maintain [place] in place - Continue abx - Tight glycemic control ?? Seen by PT OT, patient refused to go to rehab, will discharge to home with services As per ID recommendations,??patient is switched from Zosyn, daptomycin to p.o. clindamycin 600 p.o.every 8 hours for 11 more days Patient's previous??blood cultures on 07/25??are??positive for bacillus species, repeat blood cultures are??07/27 or so far negative ? T2DM (type 2 diabetes mellitus) (E11.9) Hyperglycemia (R73.9) home reg: lantus 75 BID + SSI. At [facility] was receiving 75 U lantus BID ?? Along with high-dose slidingscale Patient currently on Lantus 75 twice daily along with sliding scale insulin Continue home medications on discharge ? Hyponatremia (E87.1):??appearing euvolemic,??TSH, cortisol level normal Sodium level normalized ?? CHRONIC MEDICAL CONDITIONS: CAD (coronary artery disease) (I25.10):??Continue atorvastatin, aspirin, metoprolol HTN (hypertension) (I10):??metoprolol HLD (hyperlipidemia) (E78.5):??statin Anemia (D64.9):??Appears chronic on chart review. ??H&H stable.? Code Status: Full? Diet: Diabetic? DVT PPX: Lovenox SC? Access: PIV ? Discharge to home with services Objective Assessment and Plan ? Measurements?? Height: 182 cm (08/02/23) Weight: 136.2 kg (07/29/23) Dry Weight: 136.2 kg (07/29/23) Body Mass Index:??41.12 kg/m2??Critical (07/29/23) ? Vital Signs?? Temperature: 97.3 DegF (08/02/23 05:44:00) Temperature Route: Oral (08/02/23 05:44:00) Pulse Rate: 77 bpm (08/02/23 08:40:00) Respiratory Rate: 18 br/min (08/02/23 08:48:00) Systolic Blood Pressure:??143 mm Hg??High (08/02/23 08:40:00) Diastolic Blood Pressure: 66 mm Hg (08/02/23 08:40:00) Blood pressure sites: Arm, right (08/02/23 05:44:00) Mean Arterial Pressure: 88 mm Hg (08/02/23 05:44:00) Pulse Pressure: 61 mm Hg (08/02/23 05:44:00) Oxygen Saturation: 99 % (08/02/23 05:44:00) Mode of Delivery (Oxygen): Room air (08/02/23 05:44:00) Early Warning Score: 2 (08/02/23 08:52:22) ? Intake/Output? 07/28 21:07 08/02 07:00 08/01 07:00 07/31 07:00 07/30 07:00 ?? 08/02 09:27 08/02 09:27 08/02 06:59 08/01 06:59 07/31 06:59 Intake ? 1060 ?0 ?360 ?0 ?0 Output ? 6410 ?0 ? 1750 ? 2100 ? 1960 Net Total ?-5350 ?0 ?-1390 ?-2100 ?-1960 ? Urine Count ?7 ?0 ?0 ?1 ?6 ? . Physical Exam General: Alert, NAD. HEENT: Normocephalic. Respiratory: Clear to auscultation. No wheezing, rales or rhonchi. Cardiovascular: RRR. No murmurs, rubs or gallops. Gastrointestinal: Abdomen soft, non-tender, non-distended. + bowel sounds. Neurologic: Moves all extremities spontaneously. Skin: No rashes or lesions. Extremities: No cyanosis or clubbing. ??Left BKA present, covered in dressing Psychiatric: appropriate mood and affect Surgical Procedures Amputation Below Knee 07/29/2023 15:39 Consultants ID, vascular surgery Pending Results Pathology Tissue Request ordered on 07/29/2023 RBCs for Surgery ordered on 07/29/2023 Follow-Up Appointments Added Follow Up ?Time Frame ?Comments Juan Mondragon DO Patient Instructions Please follow the PCP in 7 days to check CBC, BMP Follow-up with vascular surgery??OP appt scheduled for 09/01/23 @ 930am with Santa Pepper [employer] REPA[employer]ER.[phone] Continue to work with PT OT Continue antibiotics, pain medication as prescribed If you develop any worseningpain,fever, chills, please come back to the ER Home Health Face to Face *Denotes mandatory barboza ?? *I certify that this patient is under my care and that I or an allowed non- physician working with me had a face to face encounter with the patient on this date:??08/02/2023 09:38 ?? *The encounter with the patient was in whole, or in part, for the following medical condition, which is the primary diagnosis(es) for home health care:??CAD (coronary artery disease) (I25.10) T2DM (type 2 diabetes mellitus) (E11.9) Foot osteomyelitis (M86.9) Diabetic foot ulcer (E11.621) Hyperglycemia (R73.9) HTN (hypertension) (I10) Sepsis (A41.9) Gram-positive bacteremia (R78.81) Hyponatremia (E87.1) Anemia (D64.9) Fracture of calcaneus (S92.009A) HLD (hyperlipidemia) (E78.5) STEMI (ST elevation myocardial infarction) (I21.3) ? *Select the indications for the discipline/s that are being arranged for this patient. Nursing (select all that apply): [_] None [x_] Medication management (reconciliation, teaching)?? [_] Chronic disease management?? [x_] Wound care and treatment? Wound care: Betadine paint, DSD, Kerlix, shilpi wrap, stump sock and ampushield daily??to??left stump [_] Home safety evaluation [_] Administer SQ/IM/IV medications?? [_] Cath care?? [_] Drain care?? [_] Trach or GT care?? Other _ Occupation Therapy (select all that apply): [_] None [x_] ADL Management [_] Fall prevention training [_] Energy conservation [_] Cognitive training Other _ Physical Therapy (select all that apply): [_] None [x_] Functional mobility training [_] Home exercise program to strengthen [_] Increase ROM?? [_] Falls prevention training [_] Home maintenance program for chronic disease Other _ Speech Therapy (select all that apply): [x_] None [_] Swallow evaluation and training [_] Speech and language training [_] Cognitive training to process, organize, and/or recall information Other _ ? *Homebound due to (select all that apply): [x_] Inability to leave home without assistance/supervision [_] Inability to ambulate without assistance [_] Pain [_] Decreased strength and endurance [_] Unsteady gait [_] Severe SOB and fatigue [_] Impaired transfers [_] Inability to negotiate stairs [_] Limited weight bearing [_] Mental status change? *Physician Signature: _Diana??Alexa ?? *By signing this, I certify that I have personally evaluated the patient and agree with the findings and recommendations as documented above. ? F Results Discharge Labs BLOOD BANK Blood Type O Positive ()?? 07/29/2023 12:42 Antibody Screen Negative ()?? 07/29/2023 12:42 RBC Unit ID [id number] ()?? 07/29/2023 14:39 RBC Available RE ()?? 07/29/2023 14:39 ?? BLOOD COUNT & DIFF WBC 10.2 k/mm3 ()?? 08/01/2023 09:52 RBC 3.68 m/mm3 (Low)?? 08/01/2023 09:52 Hgb 9.9 Gm/dL (Low)?? 08/01/2023 09:52 Hct 32.0 % (Low)?? 08/01/2023 09:52 MCV 87.0 femtoliters ()?? 08/01/2023 09:52 MCH 26.9 pg (Low)?? 08/01/2023 09:52 MCHC 30.9 g/dL (Low)?? 08/01/2023 09:52 Platelet Count 669 k/mm3 (High)?? 08/01/2023 09:52 RDW-SD 51.8 femtoliters (High)?? 08/01/2023 09:52 MPV 8.3 femtoliters (Low)?? 08/01/2023 09:52 Nucleated RBC (Automated) 0.3 #/100 WBC'S ()?? 08/01/2023 09:52 Abs. NRBC 0.0 k/mm3 ()?? 08/01/2023 09:52 Abs. Neut 7.2 k/mm3 (High)?? 08/01/2023 09:52 Abs. Lymph 1.6 k/mm3 ()?? 08/01/2023 09:52 Abs. [place] 0.3 k/mm3 (Low)?? 08/01/2023 09:52 Abs. Eo 1.1 k/mm3 (High)?? 08/01/2023 09:52 Abs. Baso 0.0 k/mm3 ()?? 08/01/2023 09:52 Neut % 65.0 % ()?? 08/01/2023 09:52 Lymph % 16.0 % ()?? 08/01/2023 09:52 [place] % 3.0 % (Low)?? 08/01/2023 09:52 Eos % 11.0 % (High)?? 08/01/2023 09:52 Baso % 0.0 % ()?? 08/01/2023 09:52 Band % 5.0 % ()?? 08/01/2023 09:52 RBC Morphology MODERATE ()?? 08/01/2023 09:52 Platelet Estimate INCREASED ()?? 08/01/2023 09:52 Imm Gran 4.7 % ()?? 07/30/2023 07:09 Abs. Imm Gran 0.4 k/mm3 ()?? 07/30/2023 07:09 ? CARDIAC CK, Total 927 units/L (High)?? 07/31/2023 01:13 ? CHEM GENERAL Sodium 133 mmol/L ()?? 07/31/2023 01:13 Potassium 5.1 mmol/L ()?? 07/31/2023 01:13 Chloride 98 mmol/L ()?? 07/31/2023 01:13 Bicarbonate Level 27 mmol/L ()?? 07/31/2023 01:13 Anion Gap 8 ()?? 07/31/2023 01:13 Glucose Level 293 mg/dL (High)?? 07/31/2023 01:13 Glucose, POC 278 mg/dL (High)?? 08/02/2023 08:22 BUN 6 mg/dL ()?? 07/31/2023 01:13 Creatinine-Blood 0.6 mg/dL (Low)?? 07/31/2023 01:13 Estimated GFR Creatinine 116 ML/MIN/1.73 M2 ()?? 07/31/2023 01:13 Calcium 7.7 mg/dL (Low)?? 07/31/2023 01:13 ? ENDOCRINE/TUMOR MARKER TSH 1.77 uIU/mL ()?? 07/29/2023 07:32 Cortisol Level 15.1 ??g/dL ()?? 07/29/2023 07:32 ?? URINE OTHER Est Creatinine Clearance 161.78 mL/min ()?? 07/30/2023 08:09 ? 45_ minutes spent on discharge * Chen Hernandez RN: PERFORM, SIGN, VERIFY Event Display: Case Management Discharge Plan Authored Date: [id number] Patient: MARINO KUO Age: 48 years Sex: Male : 1975 Associated Diagnoses: None Author: Chen Hernandez RN Discharge Plan Case Management Discharge Plan : Case Management Discharge Plan Data 08/02/2023 8:59 EST Discharge Level of Care at Discharge Homehealth/VNA Discharge VNA/Hospice/Home Care [facility] [phone] Name of Agency #1 [facility] Agency Chief Hospital Administrator # Service Categories #1 Occupational Therapy, Physical Therapy, Custodial Service Comments #1 You are discharging home with PT/OT/SN services from [facility]. Theyhave been notified of your discharge today. Please call them if you do not hear from the at [phone]. A wheelchair has been ordered through [employer]. 07/28/2023 20:11 EST Discharge Level of Care at Discharge Short-term Acute Inpatient * Brandy Kirk RN: PERFORM Event Display: Patient Education/Instruction Authored Date: [id number] Inpatient Adult Discharge Instructions [address] [address] Name: MARINO KUO : 1975 Visit: 07/28/2023 21:07:00 Current Date: 08/02/2023 10:57 Account: [id number] Inpatient Adult Discharge Instructions We would like [...] and their families. Surveys are administered by [employer] ?? If further treatment with your primary care physician or another doctor is recommended, it is important for you to keep the appointment. Call your primary care physician or return to the Emergency Department immediately if your condition worsens, fails to improve, or new symptoms develop. If you need to find a doctor, you can call [facility] for a referral at [phone] or toll free at [phone] or log in to [email or web address].. ?? [facility], in keeping with [facility] guidance, no longer requires face masks [...] a health care mekhi of your choosing. [employer] is a website that allows you to securely view your medical information including your hospital discharge summary, office visit summaries, medications and follow-up visits. You can also request appointments, renew medications, and request access to your medical information using a health care mekhi of your choosing, or just ask a question. You can enroll at [email or web address] or register during your next office visit. You have been discharged from [facility], Patient Care Unit: S64. If you have any questions regarding these instructions after you leave, please call us and we will be happy to assist you. [facility] Your Care Team Attending Physician Diana Liu MD Consulting Providers Nazia Sandoval MD; Cristian WIGGINS, Gordon Frost; Shailesh Munoz MD Discharging Providers Diana Liu MD Reason for Admission OSTEOMYELITIS Your Diagnosis CAD (coronary artery disease) T2DM (type 2 diabetes mellitus) Foot osteomyelitis Diabetic foot ulcer Hyperglycemia Hyponatremia HTN (hypertension) Sepsis Gram-positive bacteremia HLD (hyperlipidemia) STEMI (ST elevation myocardial infarction) Anemia Fracture of calcaneus Tests Performed Below is a partial list of the tests performed during your hospitalization. You may have had other tests and procedures not included in this list. Please discuss all test results with your provider. Basic Metabolic Panel CBC w/ Differential Cortisol Level CPK Total Only GLUCOSE POC TSH with T4 Reflex (Adults Only) Type and Screen Primary Care Provider Juan Mondragon DO Advance Directive Health Care Proxy on File Yes - Health Care Proxy Discharge Vitals Temperature: 97.3 DegF Height: 182 cm Pulse Rate: 77 bpm Weight: 136.2 kg Respiratory Rate: 18 br/min Body Mass Index:??41.12 kg/m2??Critical Systolic Blood Pressure:??143 mm Hg??High Body surface area: 2.62 Diastolic Blood Pressure: 66 mm Hg ?? Oxygen Saturation: 99 % ?? Studies Pending All tests and labs ordered during this hospital stay have been completed unless listed below. Please discuss all pending results with your provider listed above in these instructions. ?? Pathology Tissue Request () RBCs for Surgery What to do next Instructions From Your Doctor Please follow the PCP in 7 days to check CBC, BMP Follow-up with vascular surgery??OP appt scheduled for 09/01/23 @ 930am with Santa Pepper NP.[phone] Continue to work with PT OT Continue antibiotics, pain medication as prescribed If you develop any worseningpain,fever, chills, please come back to the ER Discharge Orders Diet:??Diabetic Diet Scheduled Follow-Up Appointments Tuesday 8:40 AM EST ?? With: Nazia Sandoval MD Where: [facility] [address] [place] [address]- Status: Pending 2023 9:30 AM EST ?? With: Nan Pepper NP Where: [facility] [address] [place] [address]- Status: Pending 2023 8:15 AM EST ?? Where: [facility] Status: Pending You Need to Schedule the Following Appointments Follow Up with??Juan Mondragon DO Where: ?? Discharge Medications MARINO KUO :1975 Visit Date:07/28/2023 Medications: Please continue your medications until treatment is completed or stopped by your provider. Medications not listed below should be discontinued. Discuss any questions related to medications with your provider. What How Much When Why Instructions Next Dose New Clindamycin (clindamycin 300 mg oral capsule) 2 capsule Oral 3 times a day Duration: 11 Days Pickup at [place] [address] today, 08/02/23 New Hydromorphone (Dilaudid 2 mg oral tablet) 1 tab(s) Oral Every 4 hours as needed for Pain , Severe Duration: 7 Days Pickup at [place] [address] as needed New Polyethylene Glycol 3350 (MiraLax oral powder for reconstitution) 17 gram Oral Daily Duration: 14 Days Pickup at [place] [address] tomorrow, 08/03/23 New Saccharomyces Boulardii Lyo (saccharomyces boulardii lyo 250 mg oral capsule) 250 Milligram Oral Twice a day Duration: 10 Days Pickup at [place] [address] today, 08/02/23 Unchanged Acetaminophen (acetaminophen 325 mg oral tablet) 650 Milligram Oral Every 4 hours as needed for Pain , Mild Temperature Greater than 100.5 ?? as needed Unchanged Aspirin (aspirin 81 mg oral delayed release tablet) 81 Milligram Oral Daily STEMI (ST elevation myocardial infarction) tomorrow, 08/03/23 Unchanged Atorvastatin (atorvastatin 80 mg oral tablet) 1 tab(s) Oral Daily tomorrow, 08/03/23 Unchanged Docusate (docusate sodium 100 mg oral capsule) 1 capsule Oral Twice a day Duration: 10 Days today, 08/02/23 Unchanged Enoxaparin 40 Milligram Subcutaneous Injection Twice a day today, 08/02/23 Unchanged Gabapentin (gabapentin 300 mg oral capsule) 1 capsule Oral Twice a day today, 08/02/23 Unchanged Insulin Glargine (Lantus Inj) 75 unit(s) Subcutaneous Injection Twice a day today, 08/02/23 Unchanged Insulin Lispro (insulin lispro 100 u/ ml subcutaneous injection) 20-35 units Subcutaneous Injection 3 times a day before meals << Sliding Scale Comments >> 100 - 149 ?? 20 units Call if less than 70 150 - 199 ?? 23 units 200 - 249 ?? 26 units 250 - 299 ?? 29 units 300 - 349 ?? 32 units 350 - 399 ?? 35 units Call if greater than 400 << Sliding Scale Comments >> ?? today, 08/02/23 Unchanged Metoprolol (metoprolol succinate 50 mg oral capsule, extended release) 1 capsule Oral Daily STEMI (ST elevation myocardial infarction) start on ?? tomorrow, 08/03/23 Pharmacy Information [facility] [address]: [address] [place], [place] [id number] [phone] ?? What How Much When Comments Stop Taking Daptomycin (DAPTOmycin 500 mg intravenous injection) 6 Milligrams/Kilogram Stop Taking Levofloxacin (levoFLOXacin 750 mg oral tablet) 750 Milligram Oral Every 24 hours Duration: 6 week(s) Stop Taking Piperacillin-Tazobactam 3.375 gram IV Piggyback Every 8 hours Stop Taking Sodium Hypochlorite Topical (sodium hypochlorite 0.0125% topical solution) See instructions Topically daily ?? Test Results Below is a partial list of the most recent Laboratory test results done prior to this discharge. You may have had other tests and procedures not included in this list. Please discuss all test resultswith your provider. Est Creatinine Clearance - 161.78 mL/min (07/30/2023) RBC Available - RE (07/29/2023) RBC Unit ID - [id number] (07/29/2023) Basic Metabolic Panel (07/31/2023) ???Sodium - 133 mmol/L???Potassium - 5.1 mmol/L???Chloride - 98 mmol/L???Bicarbonate Level - 27 mmol/L???Anion Gap - 8???Glucose Level - 293 mg/dL???BUN - 6 mg/dL???Creatinine-Blood - 0.6 mg/dL???Estimated GFR Creatinine - 116 ML/MIN/1.73 M2???Calcium - 7.7 mg/dL CBC w/ Differential (08/01/2023) ???WBC - 10.2 k/mm3???RBC - 3.68 m/mm3???Hgb - 9.9 Gm/dL???Hct - 32.0 %???MCV - 87.0 femtoliters???MCH - 26.9 pg???MCHC - 30.9 g/dL???Platelet Count - 669 k/mm3???RDW-SD - 51.8 femtoliters???MPV - 8.3 femtoliters???Nucleated RBC (Automated) - 0.3 #/100 WBC'S???Abs. NRBC - 0.0 k/mm3???Abs. Neut - 7.2 k/mm3???Abs. Lymph - 1.6 k/mm3???Abs. [place] - 0.3 k/mm3???Abs. Eo - 1.1 k/mm3???Abs. Baso - 0.0 k/mm3???Neut % - 65.0 %???Lymph % - 16.0 %???[place] % - 3.0 %???Eos % - 11.0 %???Baso % - 0.0 %???Band % - 5.0 %???RBC Morphology - MODERATE???Platelet Estimate - INCREASED Cortisol Level (07/29/2023) ???Cortisol Level - 15.1 ??g/dL CPK Total Only (07/31/2023) ???CK, Total - 927 units/L GLUCOSE POC (08/02/2023) ???Glucose, POC - 278 mg/dL TSH with T4 Reflex (Adults Only) (07/29/2023) ???TSH - 1.77 uIU/mL Type and Screen (07/29/2023) ???Blood Type - O Positive???Antibody Screen - Negative Allergies (NKA means No Known Allergies) vancomycin doxycycline??(Rash) Problems Active Problems??(20) Bacterial cellulitis?? CAD (coronary artery disease)?? Constipation?? Diabetic foot infection?? Diabetic foot ulcer?? Diabetic foot ulcers?? Encounter for screening colonoscopy?? Fever?? Foot osteomyelitis?? Gram-positive bacteremia?? HTN (hypertension)?? Hyperglycemia?? Hyperglycemia due to diabetes mellitus?? Hyponatremia?? Insulin dependent type 1 diabetes mellitus?? Lactic acid acidosis?? Sepsis?? Severe obesity?? STEMI (ST elevation myocardial infarction)?? T2DM (type 2 diabetes mellitus)?? Education Materials Below is the list of Educational Leaflet Providered with your Discharge Instructions. Valuables and Belongings I fully understand and agree that [facility] accepts no responsibility for all my personal [...] to send valuables and belongings home. ?? Review of Valuable and Belonging List: With patient Possessions released to: patient did not arrive in pre-op with any valuables or belongings Date for Pt to Sign Valuables/Belongings: 07/29/23 14:17:00 ?? Other Discharge Information ? Case Management Discharge Plan?? Discharge Plan?? Discharge Agency Information?? Discharge Level of Care at Discharge: Homehealth/VNA Name of Agency #1: [facility] Discharge VNA/Hospice/Home Care: [facility] [phone] Agency Chief Hospital Administrator #1: [phone] ?? Service Categories #1: Occupational Therapy, Physical Therapy, Custodial ?? Service Comments #1: You are discharging home with PT/OT/SN services from [facility]. They have been notified of your discharge today. Please call them if you do not hear from the at [phone]. A wheelchair has been ordered through [employer]. ?? Pulmonary Rehab Status?? Pulmonary Rehab Discharge Status?? Respiratory Rate: 18 br/min ? Common Emergency Awareness Tips IS [...] are strongly encouraged to quit. Please call [facility] at [phone] or [phone]) or log in to [email or web address] for referrals to smoking cessation programs. ?? 690 Suicide & Crisis Lifeline is available 14/03 if you or someone you know needs to find a reason to keep living. By calling you'll be connected to a skilled, trained counselor at a crisis center in your area. INPATIENT DISCHARGE INSTRUCTIONS SIGNATURE PAGE MARINO KUO Location:[place] Hospital Registration Date and Time:07/28/2023 21:07 EST Primary Care Physician: Juan Mondragon DO, Attending Physician: Alexa WIGGINS, Diana, I MARINO KUO, have received the above patient education materials/instructions and have verbalized understanding. If ambulance or transport services are being used I further acknowledge being given a choice of service. ?? If you need to contact me, please call me at this number: . Patient/Data Entry Technician Name: Patient/Data Entry Technician Signature: Relationship to Patient: Witness Name/Signature: Date: * Brandy Kirk RN: PERFORM Event Display: Patient Education Leaflets Authored Date: [id number] Taking Care of Your??Limb After Amputation ?? [id number] Taking Care of Your??Limb After Amputation Soon after surgery, you???ll be taught how to take care of your residual limb. This is the part of your limb that remains after amputation. Follow all directions from your healthcare team closely. Before the sutures or tiago come out During surgery, the wound will have been closed with stitches (sutures) or tiago. Your residual limb may be covered by a cast or splint. Or another type of pressure dressing may be used, such as soft gauze covered by a tight bandage. This dressing is used to absorb moisture, protect your healing wound, and control swelling. No matter which type of dressing is used, it is likely to be changed often. This lets your healthcare team check how your wound is healing. You or a family member may alsobe taught how to change the dressing. It will need to be kept dry while in the shower or bath. Tellyour healthcare provider if the cast or splint or dressing feels too tight or too??loose.?? A cast may be used to keep your healing limb in the proper position and to control swelling after surgery. ?? Working with a physical therapist While in the hospital, you???ll work with a physical therapist. This is an expert in exercise and rehabilitation. They will teach you how to move your limb safely. You???ll learn how to move??betweentwo surfaces, such as a bed and a chair. You???ll also learn how to support your residual limb whenyou sit and lie down. This helps prevent shortening of muscles and tightening of joints. You will be given an exercise program to continue at home. ?? After the stitches or tiago come out Your stitches??or tiago will be removed about?? 3??weeks after surgery. Once the stitches??or tiago are removed, desensitization can begin. This involves gently massaging, tapping, and rubbing your residual limb. Do this a few times each day. Desensitization helps prepare your limb for a prosthesis. It can also help relieve phantom pain and decrease phantom sensation. Wash your residual limb with plain soap and water, and gently pat dry. Do this at least once a day. And don???t pick at scabs that form over your scar. While in the hospital, you???ll learn about scar massage. Scar massage can begin when the sutures or tiago are out and the wound has completely healed. ?? Using a registered nurse hh case manager sock After your wound has healed, you???ll begin wearing a registered nurse hh case manager sock every day. This is a tapered sock that applies pressure to the bottom of your residual limb. The registered nurse hh case manager sock controls swelling. It also helps shape your limb to prepare for a prosthesis. You???ll be taught how to use and clean your registered nurse hh case manager sock at home. ?? Notes for family and friends Your family member or friend will have a lot to think about. You may be called on to serve as a helper, caregiver, or source of support. Here are some ways you can help: ??? Learn about wound care, residual limb care, and registered nurse hh case manager sock care. ??? Offer to help with desensitization. Your family member may have trouble reaching the back of their residual limb. ??? Be patient and supportive. Rememberthat your family member or friend needs to be fully involved in self-care. ?? When to call the surgeon While the wound is healing, watch closely for signs of infection or other problems. Call the surgeon right away if you notice: ??? Wound or residual limb has a bad smell ??? Cast, splint,??or dressing loosens or falls off ??? Area around wound is warm or hot, or becomes red or swollen ??? Pus or yellow drainage from the wound, or thick discharge that is brownish norris ??? Wound reopens for any reason ??? Sudden increase in pain or severe tenderness ??? Fever of?? 100.4?? F??( 38.0??C) or higher,or as directed by your healthcare provider ??? Shaking chills ?? Last Reviewed Date: 2021 ?? 1575-0183 [employer]. All rights reserved. This information is not intended as a substitute for professional medical care. Always follow your healthcare professional's instructions. ?? Patient Care team information Care Team Personnel Name: Matilda Lowe RN Position: [facility] RN Member Role: Primary Care Nurse Name: Ghazal Ta RN Position: [facility] RN Member Role: Primary Care Nurse Name: Marissa Cárdenas RN Position: [facility] RN Member Role: Primary Care Nurse Name: Lima Bennett RN Position: [facility] RN Member Role: Primary Care Nurse Name: Karen Farias RN Position: [facility] RN Member Role: Primary Care Nurse Name: Akil Zelaya RN Position: [facility] RN Member Role: Primary Care Nurse Name: Agnes Mccann RN Position: [facility] RN Member Role: Primary Care Nurse Name: Roseann Sullivan RN Position: [facility] RN Member Role: Primary Care Nurse Name: Ebony Victoria NP Position: [facility] Associate Professional Member Role: Lifetime Consulting Provider Address: Address: [address] [place] [address]- Name: Rosalba Ugalde RN Position: [facility] RN Member Role: Primary Care Nurse Name: Juan Mondragon DO Position: [facility] Physician (General Medicine) Member Role: PCP Address: Address: [address] [place] [address] Associates [place], [place] [address] Name: Eva Holguin Position: S RN Member Role: Primary Care Nurse Name: Federico Conroy RN Position: [facility] RN Member Role: Primary Care Nurse Name: Flori Lilly RN Position: [facility] RN Member Role: Primary Care Nurse Name: Joseline Malin RN Position: [facility] RN Member Role: Primary Care Nurse Name: Madeline Wren RN Position: S RN Member Role: Primary Care Nurse Name: Izabel Guy RN Position: S RN Member Role: Primary Care Nurse Name: Carmen Gates RN Position: S RN Member Role: Primary Care Nurse Name: Autumn Montgomery RN Position: [facility] RN Member Role: Primary Care Nurse Name: Brittny Luna RN Position: [facility] RN Member Role: Primary Care Nurse Name: Selena Reeves RN Position: [facility] RN Member Role: Primary Care Nurse Care Team Related Persons Name: GABBIE KUO Address: [address] [address] Name: BRANDI KUO
--- OUTSIDE RECORDS SUMMARY | 2024-03-29 11:59 | XMS_ITS | Continuity of Care Document ---
Author Organization [facility] Address [address] [place] [address]- Care Team Providers Care Mica Splitter Name Role Phone Juan Mondragon DO Primary Care Physician [place] [facility] [place]23 - 02/10/23 [facility] [address] [place] [address]- Attending Physician: Deb Barber Admitting Physician: AdmDeb lopez Referring Physician: Admtr, Ar8 Allergies, Adverse Reactions, [...] Maintenance, 04/15/22 12:39:00 EDT,Route to Pharmacy Electronically, [facility], Partial fill upon patient request if the prescription is for a schedule II opioid drug., 18... Start Date: 04/15/22 Status: Ordered atorvastatin 40 mg oral tablet 1 tablet = 40 mg, By Mouth, Daily at bedtime, please ask crabbing machine operator when to increase to 80mg dosegiven your recent transaminitis, # 90 tablet, 0 Refills, Maintenance, 04/15/22 12:39:00 EDT, Tablet, [facility], Partial fill upon patien... [...] Refills, Maintenance, 04/15/22 12:40:00 EDT, ER Capsule, [facility], Partial fill upon patient request if the prescription is for a schedule II opioid drug., 183, cm, ... Start Date: 04/15/22 Status: Ordered nystatin topical 302072 u/gm powder 1 application, Topically, 2 times a day, # 15 Gm, 0 Refills, Maintenance, 02/23/21 21:46:00 EDT, Powder, [id number], Partial fill upon patient request if the prescription is for a schedule II opioid drug., 1 application Topically 2 ti... Start Date: 02/23/21 Status: Ordered Plavix 75 mg oral tablet 75 mg, 1, tablet, By Mouth, Daily, # 90 tablet, Refills 0, Tot. Refills 0, Maintenance, 04/15/22 12:39:00 EDT, Route to Pharmacy Electronically, [facility], Partial fill upon patient [...] Team Personnel Name: Ebony Victoria NP Position: [facility] Associate Professional Member Role: Lifetime Consulting Provider Address: Address: [address] [place] [address] Name: Juan Mondragon DO Position: [facility] Physician (General Medicine) Member Role: PCP Address: Address: [address] [place] [address] Name: Madeline Wren RN Position: [facility] RN Member Role: Primary Care Nurse Name: Safia Kilpatrick RN Position: [facility] RN Kulwant Member Role: Primary Care Nurse Care Team Related Persons Name: GABBIE KUO Address: home [address] [place] [address]
--- OUTSIDE RECORDS SUMMARY | 2024-03-29 11:59 | XMS_ITS | Continuity of Care Document ---
Author Organization [facility] Address Unknown Care Team Providers Care Physical Therapist Aide Name Role Phone Doroteo Wagoner MD Primary Care Physician Encounter [facility] [place] Date(s): 05/25/21 - 06/01/21 [facility] Attending Physician: Arun Castillo MD Allergies, Adverse Reactions, Alerts Substance Reaction Severity Status vancomycin Persistent Severe Active Medications ammonium lactate 12% topical cream 1 application, Topically, 2 times a day, Apply to intact skin, # 140 Gm, 1 Refills, Maintenance, 05/25/21 13:00:00 EDT, Cream, [facility] #[id number], Partial fill upon patient request if the prescription is for a schedule II opioid drug., 1 appl... Start Date: 05/25/21 Status: Ordered Ankle foot Wrap right foot Ankle foot Wrap right foot, See Instructions, # 1 kit, Refills 0, Tot. Refills 0, Maintenance, wearup to 23 hours per day, 05/25/21 13:09:00 EDT, Supply Start Date: 05/25/21 Status: Ordered Bilateral Juxtalite HD knee-high garments Bilateral Juxtalite HD knee-high garments, See Instructions, # 1 kit, Refills 1, Tot. Refills 1, Maintenance, Use during the day and also use nighttime as tolerated. Up to 23 hours daily Dx: Lymphedema with chronic wounds & drainage., 01/01/21 11:50:... Start Date: 01/01/21 Status: Ordered Gabapentin = 300 mg, By Mouth, PRN Pain , Moderate, 0 Refills, Maintenance, 12/05/18 18:55:00 EDT Start Date: 12/05/18 Status: Ordered Humalog Sliding Scale Subcutaneous Infusion, Maintenance, 12/05/18 18:53:57 EDT Start Date: 12/05/18 Status: Ordered Insulin Glargine = 100 units, Subcutaneous Infusion, Daily in AM, 0 Refills, Maintenance, 06/23/20 21:42:00 EST Start Date: 06/23/20 Status: Ordered Lantus 100 u/ml subcutaneous solution = 150 units, Subcutaneous Infusion, Daily at bedtime, 0 Refills, Maintenance, 12/05/18 18:54:22 EDT Start Date: 12/05/18 Status: Ordered nystatin topical 194753 u/gm powder 1 application, Topically, 2 times a day, # 15 Gm, 0 Refills, Maintenance, 02/23/21 21:46:00 EDT, Powder, [facility] #[id number], Partial fill upon patient request if the prescription is for a schedule II opioid drug., 1 application Topically 2 ti... Start Date: 02/23/21 Status: Ordered simvastatin 40 mg oral tablet 40 mg, 1, tablet, By Mouth, Daily at bedtime, Refills 0, Maintenance, 12/05/18 18:53:37 EDT Start Date: 12/05/18 Status: Ordered Problem List Condition Effective Dates Status Health Status Inform ant Bacterial cellulitis(Confirmed) Active Vital Signs Most recent to oldest [Reference Range]: 1 Height 183 cm (05/25/21 11:25 AM) Weight 147.7 kg (05/25/21 11:25 AM) Oxygen Saturation [94-100 %] 95 % (05/25/21 11:25 AM) Pulse Rate [55-90 bpm] 89 bpm (05/25/21 11:25 AM) Body Mass Index [18.5-24.99] 44.1 *>HHI* (05/25/21 11:25 AM) Blood Pressure [90-138/55-84 mm Hg] 125/ 74mm Hg (05/25/21 11:25 AM) Temperature [96.8-100.4 DegF] 96.8 DegF (05/25/21 11:25 AM) Mode of Delivery (Oxygen) Room air (05/25/21 11:25 AM) Blood pressure sites Arm, left (05/25/21 11:25 AM) Temperature Route Temporal (05/25/21 11:25 AM) Dry Weight 147.7 kg (05/25/21 11:25 AM) Social History Social History Type Response Smoking Status Never (less than 100 in lifetime) entered on: 06/23/20 Sex
--- OUTSIDE RECORDS SUMMARY | 2024-03-29 11:59 | XMS_ITS | Continuity of Care Document ---
Author Organization [facility] Address [address] [place] [address]- Care Team Providers Care Boat Fueler Name Role Phone Juan Mondragon DO Primary Care Physician Encounter [facility] [place] Date(s): 06/20/23 - 08/07/23 [facility] [address] [place], [place] [address] Attending Physician: Juan Mondragon DO Admitting Physician: Juan Mondragon DO Referring Physician: Bolivar Ocasio MD Allergies, Adverse Reactions, Alerts Substance Reaction [...] 12:39:00 EDT,Route to Pharmacy Electronically, [facility], Partial fill upon patient request if [...] 08/13/23 9:18:00 EST, 08/02/23 9:18:00 EST, Capsule, [facility], Partial fill upon patient request if the prescription is for a schedule II opioid d... Start Date: 08/02/23 Stop Date: 08/13/23 Status: Ordered Dilaudid 2 mg oral tablet 1 tablet = 2 mg, By Mouth, Every 4 hours, PRN Pain , Severe, for 7 days, # 42 tablet, 0 Refills, Acute 08/09/23 9:19:00 EST, 08/02/23 9:19:00 EST, Tablet, [facility], Partial fill upon patient request if the prescription is for a schedul... Start Date: 08/02/23 Stop Date: 08/09/23 Status: Ordered docusate sodium 100 mg oral capsule 1 capsule = 100 mg, By Mouth, 2 times a day, # 20 capsule, 0 Refills, Maintenance, 07/13/23 9:01:00EST, Capsule, [facility][id number], Partial fill upon patient request if the [...] Refills, Maintenance, 04/15/22 12:40:00 EDT, ER Capsule, [facility], Partial fill upon patient request if the prescription is for a schedule II opioid drug., 183, cm, ... Start Date: 04/15/22 Status: Ordered MiraLax oral powder for reconstitution = 17 Gm, By Mouth, Daily, for 14 days, # 238 Gm, 0 Refills, Acute 08/16/23 9:19:00 EST, 08/02/23 9:19:00 EST, REC Powder, [facility], Partial fill upon patient request if the prescription is for a schedule II opioid drug., 17 Gm By Mouth... Start Date: 08/02/23 Stop Date: 08/16/23 Status: Ordered saccharomyces boulardii lyo 250 mg oral capsule = 250 mg, By Mouth, 2 times a day, for 10 days, # 20 capsule, 0 Refills, Acute 08/12/23 9:17:00 EST, 08/02/23 9:17:00 EST, Capsule, [facility], Partial fill upon [...] Team Personnel Name: Matilda Lowe RN Position: [facility] RN Member Role: Primary Care Nurse Name: Ghazal Ta RN Position: [facility] RN Member Role: Primary Care Nurse Name: Marissa Cárdenas RN Position: [facility] RN Member Role: Primary Care Nurse Name: Lima Bennett RN Position: [facility] RN Member Role: Primary Care Nurse Name: Karen Farias RN Position: [facility] RN Member Role: Primary Care Nurse Name: Akil Zelaya RN Position: [facility] RN Member Role: Primary Care Nurse Name: Agnes Mccann RN Position: [facility] RN Member Role: Primary Care Nurse Name: Roseann Sullivan RN Position: [facility] RN Member Role: Primary Care Nurse Name: Ebony Victoria NP Position: [facility] Associate Professional Member Role: Lifetime Consulting Provider Address: Address: [address] [place] [id number] Name: Rosalba Ugalde RN Position: [facility] RN Member Role: Primary Care Nurse Name: Juan Mondragon DO Position: [facility] Physician (General Medicine) Member Role: PCP Address: Address: [address] [place] [address] [facility] [place], [place] [address] Name: Eva Holguin Position: S RN Member Role: Primary Care Nurse Name: Federico Conroy RN Position: S RN Member Role: Primary Care Nurse Name: Flori Lilly RN Position: S RN Member Role: Primary Care Nurse Name: Joseline Malin RN Position: [facility] RN Member Role: Primary Care Nurse Name: Madeline Wren RN Position: [facility] RN Member Role: Primary Care Nurse Name: Izabel Guy RN Position: [facility] RN Member Role: Primary Care Nurse Name: Carmen Gates RN Position: [facility] RN Member Role: Primary Care Nurse Name: Autumn Montgomery RN Position: [facility] RN Member Role: Primary Care Nurse Name: Brittny Luna RN Position: [facility] RN Member Role: Primary Care Nurse Name: Selena Reeves RN Position: [facility] RN Member Role: Primary Care Nurse Care Team Related Persons Name: GABBIE KUO Address: [address] [address] Name: BRANDI KUO
--- OUTSIDE RECORDS SUMMARY | 2024-03-29 11:59 | XMS_ITS | Continuity of Care Document ---
Author Organization [facility] ter Address [address] [place] [address]- Care Team Providers Care Pushcart Peddler Name Role Phone Ciaran WIGGINS, Doroteo De Jesus Primary Care Physician Encounter [facility] Date(s): 04/10/22 - 04/15/[address] [address] Discharge Disposition: A-D/C Home Attending Physician: Rajiv Alexandre MD Admitting Physician: Lorin Richter MD Referring Physician: Lorin Richter MD Allergies, Adverse Reactions, Alerts Substance Reaction [...] Maintenance, 04/15/22 12:39:00 EDT,Route to Pharmacy Electronically, [facility], Partial fill upon patient request if the prescription is for a schedule II opioid drug., 18... Start Date: 04/15/22 Status: Ordered atorvastatin 40 mg oral tablet 1 tablet = 40 mg, By Mouth, Daily at bedtime, please ask recreation worker when to increase to 80mg dosegiven your recent transaminitis, # 90 tablet, 0 Refills, Maintenance, 04/15/22 12:39:00 EDT, Tablet, [facility], Partial fill upon patien... [...] DAILY Start Date: 03/21/22 Status: Ordered metoprolol 25 mg oral tablet 25 mg, Tablet, By Mouth, Once, give before discharging, Routine, 04/15/22 14:00:00 EDT, Stop date 04/15/22 14:00:00 EDT Start Date: 04/15/22 Stop Date: 04/15/22 Status: Completed metoprolol 25 mg oral tablet 25 mg, Tablet, By Mouth, 04/15/22 9:00:00 EDT Start Date: 04/15/22 Stop Date: 04/15/22 Status: Completed metoprolol succinate 50 mg oral capsule, extended release 1 capsule = 50 mg, By Mouth, Daily, start on 04/16, # 90 capsule, 0 Refills, Maintenance, 04/15/22 12:40:00 EDT, ER Capsule, [facility], Partial fill upon patient request if the prescription is for a schedule II opioid drug., 183, cm, ... Start Date: 04/15/22 Status: Ordered nystatin topical 278966 u/gm powder 1 application, Topically, 2 times a day, # 15 Gm, 0 Refills, Maintenance, 02/23/21 21:46:00 EDT, Powder, [facility] #[id number], Partial fill upon patient request if the prescription is for a schedule II opioid drug., 1 application Topically 2 ti... Start Date: 02/23/21 Status: Ordered Plavix 75 mg oral tablet 75 mg, 1, tablet, By Mouth, Daily, # 90 tablet, Refills 0, Tot. Refills 0, Maintenance, 04/15/22 12:39:00 EDT, Route to Pharmacy Electronically, [facility], Partial fill upon patient request if the prescription is for a schedule II opioi... Start Date: 04/15/22 Status: Ordered Problem List Condition Effective Dates Status Health Status Inform ant Bacterial cellulitis(Confirmed) Active Diabetic foot ulcers(Confirmed) Active Fever(Confirmed) Active Hyperglycemia due to diabete s mellitus(Confirmed) Active Hyponatremia(Confirmed) Active Lactic acid acidosis(Confirmed) Active Severe obesity(Confirmed) Active Vital Signs Most recent to oldest [Reference Range]: 1 2 3 Height 183 cm (04/15/22 3:47 AM) 183 cm (04/14/22 11:53 PM) 183 cm (04/14/22 8:30 PM) Weight 141.7 kg (04/14/22 5:56 AM) 143.2 kg (04/13/22 4:00 AM) 143.9 kg (04/11/22 6:37 AM) Oxygen Saturation [94-100 %] 96 % (04/15/22 11:00 AM) 96 % (04/15/22 7:00 AM) 96 % (04/15/22 3:47 AM) Pulse Rate [55-90 bpm] 73 bpm (04/15/22 1:46 PM) 73 bpm (04/15/22 11:00 AM) 82 bpm (04/15/22 9:12 AM) Body Mass Index [18.5-24.99] 43.66 *>HHI* (04/10/22 8:41 AM) Blood Pressure [90-138/55-84 mm Hg] 126/70mm Hg (04/15/22 1:46 PM) 126/70mm Hg (04/15/22 11:00 AM) 135/70mm Hg (04/15/22 9:12 AM) Respiratory Rate [16-30 br/min] 18 br/min (04/15/22 11:00 AM) 18 br/min (04/15/22 7:00 AM) 18 br/min (04/15/22 3:47 AM) Temperature [96.8-100.4 DegF] 97.9 DegF (04/15/22 11:00 AM) 98.8 DegF (04/15/22 7:00 AM) 97.9 DegF (04/15/22 3:47 AM) Liters per Minute 3 L/min (04/13/22 11:00 PM) 3 L/min (04/13/22 10:00 PM) 4 L/min (04/13/22 7:00 AM) Mode of Delivery (Oxygen) Room air (04/15/22 11:00 AM) Room air (04/15/22 7:00 AM) Room air (04/15/22 3:47 AM) Blood pressure sites Arm, right (04/15/22 11:00 AM) Arm, right (04/15/22 7:00 AM) Arm, right (04/15/22 3:47 AM) Temperature Route Oral (04/15/22 11:00 AM) Oral (04/15/22 7:00 AM) Oral (04/15/22 3:47 AM) Dry Weight 146.2 kg (04/10/22 8:41 AM) Weight Obtained Via Standing scale (04/14/22 5:56 AM) Bed scale (04/11/22 6:37 AM) Bed scale (04/10/22 8:41 AM) Dry Weight Obtained Via Bed scale (04/10/22 8:41 AM) Social History Social History Type Response Smoking Status Never (less than 100 in lifetime) entered on: 06/23/20 Sex Care Team Personnel Name: Ciaran WIGGINS, Doroteo De Jesus Address: [address], [address] [facility] [place] [address]-
--- OUTSIDE RECORDS SUMMARY | 2024-03-29 11:59 | XMS_ITS | Continuity of Care Document ---
Author Organization [facility] ter Address [address] [place] [id number]- Care Team Providers Care Small Order Cutter Name Role Phone Alanna MENDEZJuan Primary Care Physician ( [phone] Encounter [facility] Date(s): 07/06/23 - 07/13/[address] [address] Discharge Disposition: A-D/C Home Attending Physician: Bolivar Ocasio MD Admitting Physician: Bolivar Ocasio MD Referring Physician: Bolivar Ocasio MD Allergies, Adverse [...] Maintenance, 04/15/22 12:39:00 EDT,Route to Pharmacy Electronically, [facility], Partial fill upon [...] capsule, 0 Refills, Maintenance, 07/13/23 9:01:00EST, Capsule, [facility] #[id number], Partial fill upon patient request if the prescription isfor a schedule II opioid drug., 182.88, cm, ... Start Date: 07/13/23 Stop Date: 07/23/23 Status: Ordered gabapentin 300 mg oral capsule 300 mg, Capsule, By Mouth, 07/13/23 9:00:00 EST Start Date: 07/13/23 Stop Date: 07/13/23 Status: Completed gabapentin 300 mg oral capsule [...] 08/24/23 9:01:00 EST, 07/13/23 9:01:00 EST, Tablet, [facility] #[id number], Partial fill upon patient request if the prescription is for a schedule II opioid drug.,... Start Date: 07/13/23 Stop Date: 08/24/23 Status: Ordered metoprolol 50 mg oral tablet, extended release 50 mg, XL Tablet, By Mouth, Hold for: SBP<100, HR<60, 07/13/23 9:00:00 EST Start Date: 07/13/23 Stop Date: 07/13/23 Status: Completed metoprolol succinate 50 mg oral capsule, extended release 1 capsule = 50 mg, By Mouth, Daily, start on 04/16, # 90 capsule, 0 Refills, Maintenance, 04/15/22 12:40:00 EDT, ER Capsule, [facility], Partial fill upon patient request if the prescription is for a schedule II opioid drug., 183, cm, ... Start Date: 04/15/22 Status: Ordered oxyCODONE 5 mg oral tablet 5 mg, By Mouth, Every 4 hours, PRN, for 5 days, # 30 tablet, Refills 0, Tot. Refills 0, Acute 07/18/23 9:01:00 EST, Pain , Moderate, 07/13/23 9:01:00 EST, Route to Pharmacy Electronically, [facility] #[id number], Partial fill upon patient request... Start Date: 07/13/23 Stop Date: 07/18/23 Status: Ordered sodium hypochlorite 0.0125% topical solution See Instructions, Topically daily, # 473 mL, 0 Refills, Acute 08/22/23 23:59:00 EST, 07/13/23 9:01:00 EST, Solution, [facility] #[id number], Partial fill upon patient request if the [...] Results Orders for Microbiology Reports Name Date AFB Culture w/ AFB Smear, Nonrespiratory (ACID FAST CULT,NON-RESP) 07/07/23 Anaerobic Culture (ANAEROBIC CULTURE) Fungal Culture, Nonrespiratory (FUNGAL C ULT,NON-RESPIRATORY) 07/07/23 Tissue Culture w/ Gram Smear (TISSUE/BIO PSY CULT.) 07/07/23 Blood Culture 07/06/23 Blood Culture #2 07/06/23 Microbiology Reports TEST:Anaerobic Culture STATUS:Auth (Verified) BODY SITE: SOURCE:BONE COLLECTED DATE/TIME:07/07/23 10:57 AM Anaerobic Culture SPECIMEN DESCRIPTION : BONE L HEEL CALCANEOUS SPECIAL REQUESTS : NONE CULTURE : NO ANAEROBES ISOLATED REPORT STATUS : FINAL 07/10/2023 TEST:Tissue/Biopsy Culture STATUS:Auth (Verified) BODY SITE: SOURCE:BONE COLLECTED DATE/TIME:07/07/23 10:57 AM Tissue/Biopsy Culture SPECIMEN DESCRIPTION : BONE L HEEL CALCANEOUS SPECIAL REQUESTS : NONE GRAM STAIN : 2+ POLYMORPHONUCLEAR LEUKOCYTES 3+ GRAM POSITIVE COCCI 1+ GRAM POSITIVE RODS CRITICAL VALUE CALLED AND VERIFIED BY READBACK FOR: GRAM POSITIVE COCCI AND GRAM POSITIVE RODS TO [id number] 07/07/23 1515 BY TECH [id number] CULTURE : 4+ PROTEUS MIRABILIS This isolate was identified using Maldi-TOF system These AST resultswere performed on the [employer] 2 ID and AST system 4+ MORGANELLA MORGANII This isolate was identified using Maldi-TOF system 4+ STREPTOCOCCI, GROUP G BETA HEMOLYTIC. SUSCEPTIBILITY TESTING NOT ROUTINELY PERFORMED ON THIS ISOLATE. REPORT STATUS : FINAL 07/09/2023 ORGANISM 4+ PROTEUS MIRABILIS This isolate was identified using Maldi-TOF system These AST results were performed on the [employer] 2 ID and AST system METHOD MIN. INHIB. CONC. (MCG/ML) AMPICILLIN SUSCEPTIBLE AMPICILLIN/SULBACTAM SUSCEPTIBLE CEFEPIME SUSCEPTIBLE CEFTRIAXONE SUSCEPTIBLE CIPROFLOXACIN SUSCEPTIBLE ERTAPENEM SUSCEPTIBLE GENTAMICIN SUSCEPTIBLE LEVOFLOXACIN SUSCEPTIBLE PIPERACILLIN/TAZOBAC SUSCEPTIBLE TRIMETH/SULFAMETHOX SUSCEPTIBLE ORGANISM 4+ MORGANELLA MORGANII This isolate was identified using Maldi-TOF system METHOD MIN. INHIB. CONC. (MCG/ML) AMPICILLIN RESISTANT AMPICILLIN/SULBACTAM INTERMEDIATE CIPROFLOXACIN SUSCEPTIBLE ERTAPENEM SUSCEPTIBLE GENTAMICIN SUSCEPTIBLE LEVOFLOXACIN SUSCEPTIBLE PIPERACILLIN/TAZOBAC SUSCEPTIBLE TRIMETH/SULFAMETHOX SUSCEPTIBLE TEST:Fungal Culture, Non-Respiratory STATUS:Unauthenticated BODY SITE: SOURCE:BONE COLLECTED DATE/TIME:07/07/23 10:57 AM Fungal Culture, Non-Respiratory SPECIMEN DESCRIPTION : BONE L HEEL CALCANEOUS SPECIAL REQUESTS : NONE DIRECT EXAM : NO FUNGAL ELEMENTS OBSERVED CULTURE : NO FUNGI ISOLATED AFTER 4 DAYS REPORT STATUS : PRELIMINARY REPORT TEST:AFB Culture w/AFB Smear, Non-Respiratory STATUS:Unauthenticated BODY SITE: SOURCE:BONE COLLECTED DATE/TIME:07/07/23 10:57 AM AFB Culture w/AFB Smear, Non-Respiratory SPECIMEN DESCRIPTION : BONE L HEEL CALCANEOUS SPECIAL REQUESTS : NONE DIRECT EXAM : NO ACID FAST BACILLI SEEN ON DIRECT SMEAR, TEST PERFORMED AT [facility] No acid fast bacilli seen on concentrated smear. Per [facility] protocol, this specimen was concentrated prior to smear preparation. [facility], [address] [place] [id number]. CULTURE : SPECIMEN SENT TO [employer]PT OF PUBLIC HEALTH, [place], [place] REPORT STATUS : PRELIMINARY REPORT TEST:Blood Culture STATUS:Auth (Verified) BODY SITE: SOURCE:Blood COLLECTED DATE/TIME:07/06/23 2:11 PM Blood Culture SPECIMEN DESCRIPTION : BLOOD NO SITE SPECIAL REQUESTS : NONE CULTURE : NO GROWTH 5 DAYS. REPORT STATUS : FINAL 07/11/2023 TEST:Blood Culture, Second Order STATUS:Auth (Verified) BODY SITE: SOURCE:Blood COLLECTED DATE/TIME:07/06/23 2:11 PM Blood Culture, Second Order SPECIMEN DESCRIPTION : BLOOD NO SITE SPECIAL REQUESTS : NONE CULTURE : NO GROWTH 5 DAYS. REPORT STATUS : FINAL 07/11/2023 Radiology Reports * Exam Date Time Procedure Performing Provider Status 07/06/23 12:41 PM Foot Min 3 Views Left Ivan Prajapati; Auth (Verified) Notes: (Foot Min 3 Views Left) Reason For Exam: Nonhealing Foot Wound;Other: RESULT: Foot Min 3 Views Left Foot Min 3 Views Left, 3 views Reason: Other:; Nonhealing Foot Wound; Clinical Question(s): Osteomyelitis COMPARISON: Left foot radiographs 06/02/2023 FINDINGS: No fractures or dislocation. Soft tissue ulcer in the region of the plantar aspect of the calcaneus with mild cortical bone loss, suspicious for osteomyelitis. Soft tissue calcification within the plantar aponeurosis region. Tiny enthesophyte at the attachment of the Achilles tendon to the calcaneus. Mild soft tissue swelling along the posterior aspect of the ankle. Vascular calcification present. IMPRESSION: Radiographic findings suspicious for osteomyelitis of the plantar aspect of the calcaneus. Can consider further characterization with CT. I have personally reviewed the images and I agree with this report. WSN: [id number] Ordering Physician: Delfino Gomez Dictated By: Candy Ruby DO Dictated Date/Time: 07/06/23 9:45 pm Reviewed By: Devante Mansfield MD Signed By: Devante Mansfield MD Signed Date/Time: 07/06/23 9:50 pm Transcribed By: ANABEL Transcribed Date/Time: 07/06/23 3:03 pm Vital Signs Most recent to oldest [Reference Range]: 1 2 3 Height 182.88 cm (07/13/23 11:51 AM) 182.88 cm (07/13/23 7:42 AM) 182.88 cm (07/13/23 4:26 AM) Oxygen Saturation [94-100 %] 99 % (07/13/23 11:51 AM) 97 % (07/13/23 7:42 AM) 95 % (07/13/23 4:26 AM) Pulse Rate [55-90 bpm] 63 bpm (07/13/23 11:51 AM) 64 bpm (07/13/23 9:49 AM) 66 bpm (07/13/23 7:42 AM) Blood Pressure [90-138/55-84 mm Hg] 126/62mm Hg (07/13/23 11:51 AM) 123/67mm Hg (07/13/23 9:49 AM) 123/67mm Hg (07/13/23 7:42 AM) Respiratory Rate [16-30 br/min] 20 br/min (07/13/23 11:51 AM) 16 br/min (07/13/23 9:48 AM) 18 br/min (07/13/23 7:42 AM) Temperature [96.8-100.4 DegF] 97.5 DegF (07/13/23 11:51 AM) 97.6 DegF (07/13/23 7:42 AM) 97.9 DegF (07/13/23 4:26 AM) Liters per Minute 0 L/min (07/10/23 4:00 PM) 0 L/min (07/10/23 12:54 PM) 0 L/min (07/10/23 8:00 AM) Mode of Delivery (Oxygen) Room air (07/13/23 11:51 AM) Room air (07/13/23 7:42 AM) Room air (07/13/23 4:26 AM) Blood pressure sites Arm, left (07/13/23 11:51 AM) Arm, left (07/13/23 7:42 AM) Arm, right (07/13/23 4:26 AM) Temperature Route Oral (07/13/23 11:51 AM) Oral (07/13/23 7:42 AM) Oral (07/13/23 4:26 AM) Dry Weight 138.6 kg (07/07/23 9:45 AM) 138.6 kg (07/06/23 12:04 PM) Dry Weight Obtained Via Patient/family s tated (07/06/23 12:04 PM) Social History Social History Type Response Tobacco Use: pt denies. Sex EKG study * Event Display: ECG 12-Lead Authored Date: Please click on pdf link to open report * Event Display: ECG 12-Lead Authored Date: Ventricular Rate: 63 BPM Atrial Rate: 63 BPM P-R Interval: 174 ms QRS Duration: 86 ms Q-T Interval: 450 ms QTC Calculation(Bazett): 460 ms P [place]: 19 degrees R [place]: -27 degrees T [place]: 18 degrees Normal sinus rhythm Low voltage QRS Cannot rule out Anterior infarct (cited on or before 13-APR-2022) Abnormal ECG When compared with ECG of 26-MAY-2023 23:03, No significant change was found Confirmed by LAM CLANCY MD ([id number]) on 07/12/2023 2:07:30 PM Lyman: LAM CLANCY MD Cardiology * Event Display: Cardiac Rhythm Strips Authored Date: Hospital Progress note * Yeni Townsend MDtwo [facility] hospitalmary: PERFORM, MODIFY Event Display: Progress Note Hospital Authored Date: [id number] Patient: ??MARINO KUO ? Age:??48 Years?Sex:??Male?:??1975? 48-year-old male with medical history of type 1 diabetes mellitus admitted to the hospital for leftlower extremity infection. BIDS was been consulted for assistance with management of patient's type1 diabetes mellitus. ? Current Inpatient glycemic history and management: - Basal insulin: Lantus 42 units twice daily - Prandial insulin: Humalog??20 units starting at??100 mg/dL with interval increase of??3 units forevery??50 mg/dL rise in blood glucose TIDAC - Correctional insulin: none - Diet: 60 g carb per meal ?? Glycemic trends reviewed: Blood glucose range in the past 24 hours 117-344, bedtime??BG??117 and??this morning FBG 283.??He received a total of Lantus 84 units and Humalog??89 units yesterday. ? #Type I diabetes mellitus with complications HbA1c??7.7% on 06/10/2023 (in setting of anemia with Hb in the range of 11-12 g/dL). Glycemic trends reviewed.?Recommend??continuing??Lantus??42 units??BID and Humalog sliding scaleto??20??units starting at 100 mg/dL with interval increase of??3 units??for every 50 mg/dL rise in blood glucose,??3 times daily AC, hold if NPO.?? We will continue to monitor glycemic trends and titrate insulin accordingly. He can be discharged on the final inpatient regimen.??Once discharged he was advised to follow up closely with his primary editor and he mentioned that he has an appointment next month. Patient??has type I DM, please do not hold basal insulin,??if NPO give 70-80% of his dose. ? Plan of care discussed with .??Palmer.? Thank you for the consultation, we will follow along with you. Please contact us with any questionsor concerns.? Abdoulaye Townsend MD Endocrinology Fellow, PGY-V * Priest DIALLO, Delfino Cates: PERFORM Event Display: Progress Note Hospital Authored Date: [id number] Patient: ??MARINO KUO ? Age:??48 Years?Sex:??Male?:??1975?? Subjective No acute events overnight.?? Denies chest pain, shortness of breath, nausea or vomiting.?? Pain controlled Review of Systems Constitutional:??No weight loss, fever, [...] or anxiety. Physical Exam Vitals & Measurements T:??97.6?F?? HR:??66??(Peripheral)?? RR:??18?? BP:??123/67?? SpO2:??97%?? HT:??182.88??cm?? General appearance: No apparent distress, appears stated age, well developed. Head: Normocephalic, atraumatic. Cardiac: RRR, no murmurs?? Respiratory: Clear to auscultation bilaterally. Abdomen: Soft, nontender, nondistended. No guarding or rebound. No palpable mass. Extremities: Able to move all extremities without difficulty. Warm. Neurologic status: Alert and oriented x 3. No focal deficits. Psych: Mood and affect normal. Vascular: L heel clean wound base except for some fibrinous exudate noted on inferior edge of wound; no purulence noted.?? Left: BP AT/DP/PT Assessment/Plan Marino Kuo is a 48-year-old male past medical history CAD s/p DESx2 RCA/LAD (03/2022), HTN, T1DM (hemoglobin A1c 8.4 08/2022), obesity, chronic nonhealing lower extremity wounds, chronic venous stasis presented on 07/06/23 to [facility] as a direct admit from the vascular office for worsening left heel would. He had previous left heel debridement (06/10, Cristian) and LLE angiogramand re-debridement (06/16, Ninfa). In the angio, all 3 vessels were patent without significant stenosis. He ultimately had wound vac placed and discharged home +VNA on 06/20/23 with 4 days of Augmentin to complete antibiotic course. Pt is now s/p left heel excisional debridement (07/07/23/Susan). Patient has clinical osteo with exposed bone at wound base. OR cx grew Proteus/Morganella, on Zosyn. Blood cx 06/05-negative.??Patient underwent bedside debridement 07/11; tolerated well. Will continue with IV antibiotics and local wound care.? Plan: - Diabetic diet?? - Tight glycemic control: BIDs following -??Hb A1c level 8.0, up from 7.7 in May - Wound care: deep packing WTD with Dakins, kerlix BID - Offload both heels - PT??recs: home with services - Left toe touchdown only - OOB ambulate QID - SQH for DVT ppx - Continue Zosyn while in house - ID recs apprec: Levaquin??PO x 6 weeks??@ dc - Labs M/W/F ?? Please page Vascular [place] [phone]. ?? Resident/PA/BOAT REPAIRER Attestation Case discussed with attending physician:??Dr. Davis Intake and Output Intake and Output Results?? This visit (24 hour periods starting at 07:00 EST)? 07/13/23 *?? 07/12/23?? 07/11/23?? Total Summary?Intake mL?? --?? 720?? 340?Output mL?? --?? --?? --?Fluid Balance ?? --?? 720?? 340?? Intake (2)?Oral Fluids mL?? --?? 720?? 240?Piperacillin-Tazobactam mL?? --?? --?? 100?Total?? --?? 720?? 340?? Output (0)? Counts (1)?Oral Fluids mL?? --?? 720?? 240? * This column has not completed the indicated time period.?? Labs Last 24 Hours BLOOD COUNT & DIFF ? Event Name?? Event Result?? Date/Time?? WBC 8.6 k/mm3 07/13/23 01:09:00 RBC 4.37 m/mm3??Low 07/13/23 01:09:00 Hgb 11.8 Gm/dL??Low 07/13/23 01:09:00 Hct 38.4 %??Low 07/13/23 01:09:00 MCV 87.9 femtoliters 07/13/23 01:09:00 MCH 27 pg 07/13/23 01:09:00 MCHC 30.7 g/dL??Low 07/13/23 01:09:00 Platelet Count 436 k/mm3 07/13/23 01:09:00 MPV 8.3 femtoliters??Low 07/13/23 01:09:00 Nucleated RBC (Automated) 0 #/100 WBC'S 07/13/23 01:09:00 ? CHEM GENERAL ? Event Name?? Event Result?? Date/Time?? Sodium 138 mmol/L 07/13/23 01:11:00 Chloride 103 mmol/L 07/13/23 01:11:00 Bicarbonate Level 27 mmol/L 07/13/23 01:11:00 Anion Gap 8 07/13/23 01:11:00 BUN 14 mg/dL 07/13/23 01:11:00 Creatinine-Blood 0.9 mg/dL 07/13/23 01:11:00 Calcium, Ionized pH Corrected 1.2 mmol/L 07/13/23 01:11:00 Phosphorus 4.2 mg/dL 07/13/23 01:11:00 Magnesium 2.6 mg/dL??High 07/13/23 01:11:00 ? * Fauzia Damon RN: PERFORM, SIGN, VERIFY Event Display: Progress Note Hospital Authored Date: [id number] Patient: MARINO KUO Age: 48 years Sex: Male : 1975 Associated Diagnoses: None Author: Fauzia Damon RN Findings Problem Related to Alteration in Tissue Perfusion : Alteration in Tissue Perfusion 07/13/2023 4:00 EST Alteration Tissue Perfusion related to Infection, Vascular disease, Vascular Procedure Goals & Outcomes: Tissue perfusion Pt will maintain optimal perfusion to vital organs, Pt will resume/maintain adequate peripheral circulation, Pt will experience improved tissue perfusion, Pt will achieve progressive healing of injured area, Pt will be hemodynamically stable, Pt will achieve no rmal/improved/optimal neuro status, Pt will return to baseline respiratory function, Pt will maintain adequate GI function appropriate for pt, Pt will maintain adequate function appropriate for pt, Pt will be discharged without infection, Pt/ S.O. will state understanding of plan of care, Pt/S.O. will verbalize understanding of the D/C plan, Pt will maintain CMS to affected extremity Interventions: Tissue Perfusion Assess for s/s of infection of lines, drains, incisions, Assess/Monitor activity tolerance, Assess/Monitor cardiac dysrhythmias, Assess/Monitor CMS to affected extremity, Assess/Monitor mental status, Assess/Monitor peripheral pulses & capillary refill, Assess/Monitor presence & degree of edema, Assess/Monitor secretions & drainage for s/s of infection,Assess/Monitor vital signs per unit standard & prn, Elevate limbs, Position for comfort, Teach pt/caregiver discharge plan & follow up care, Teach pt/caregiver on plan of care, treatment, s/s& meds, Teach pt/caregiver on use of pain scale, Teach Pt/caregiver signs & symptoms of infection BH Goals/Interventions, Tissue Perfusion Yes Tissue Perfusion, Problem Start 07/07/2023 4:42 Reviewed Plan with, Tissue Perfusion Patient Patient Progression, Tissue Perfusion Pt progressing according to plan . Narrative/Incidental Pt a/o x4. No c/o of pain, SOB, or dizziness. Independant with RW. L heel wrapped. CDI. Refused heparin for prophylaxis. Bed in lowest locked position. Call albrecht within reach. See CIS for biophysical. Discharge Information Rehabilitation Discharge : Rehab Discharge Index 07/09/2023 8:20 EST Comments on treatment indicated 48yoM s/p left heel excisional debridement , abscess extending to left lateral malleolus, Bone cx sent (07/07/23/Susan). He has exposed bone consistent with clinical osteomyelitis. TDWB LLE. Walker: distance 20-50 Distance pt will ambulate >50 ft c RW Full chart review completed Yes Hospital course see comment Other findings Pt is a moderate complexity evaluation as circumstances leading to hospitalization impact POC and functional mobility. Plan of care PT Gait training, Transfer training, Therapeutic exercise, Functional Activities, Balance training, Neuromuscular education Consult note * Shaikh ROSALIE, Heidi: PERFORM Event Display: Consultation Note Authored Date: [id number] Patient: ??MARINO KUO ? Age:??48 Years?Sex:??Male?:??1975?? Chief Complaint worsening Left heel wound infection, DM-I Reason for Consultation Reason for consultation: Hyperglycemia, type 1 diabetes mellitus Consult requesting service: Vascular surgery Consult requesting physician:??Bolivar Ocasio History of Present Illness This is??48-year-old male past medical history CAD s/p DESx2 RCA/LAD (03/2022), HTN, T1DM (hemoglobin A1c 8.4 08/2022), obesity, chronic nonhealing lower extremity wounds, chronic venous stasis??presented to [facility] as a direct admit from the vascular office for worsening??left heel would.?? He was previously??transferred from [facility]??on 06/09/2023??with a??left??diabetic??heel wound, for which he underwent debridement (06/10, Cristian) and LLE angiogram and debridement (06/16, Ninfa).?? In the angio, all 3 vessels were patent without significant stenosis.?? He ultimatelyhad wound vac placed and was discharged home.? Recent DM Regimen: Lantus 36 SQ QHS and??32 units??SQ QAM. Lispro??sliding??scale to 20 units for blood sugar of 80+?? 4 units for every 50 mg/dL increase in blood glucose 3 times daily/AC ?? Last night Pt received 36 U of lantus. Overnight, Pt was found to have elevated blood sugars and hewas given??lispro??correction scale.?? Since yesterday afternoon patient has received 61 units of Lantus??and??39 units of lispro. ?? This morning patient's blood sugar was 303??and??he was given 25 units of Lantus??and 12 units of lispro. ? Review of Systems Pt not in the??room Physical Exam Vitals & Measurements T:??97.3?F?? TMIN:??97.3?F?? TMAX:??100.2?F?? HR:??73??(Monitored)?? RR:??21?? BP:??117/56?? SpO2:??96%?? Pt not in the room Assessment/Plan Briefly this is a 48 years old male??with a longstanding history of diabetes mellitus type 1??who was readmitted to the hospital yesterday due to??left??heel wound infection. ??During the previous hospitalization patient was??treated with Lantus 36 SQ QHS and??32 units??SQ QAM. Lispro??sliding??scale to 20 units for blood sugar of 80+?? 4 units for every 50 mg/dL increase in blood glucose 3 timesdaily/AC. ? Patient is currently n.p.o. and is on his way to the OR??for another debridement of the left heel wound infection. ?? Recommendations: Continue??Lantus??32 units in the morning and 36 units at nighttime. ??Please decrease dose of??by 30%??while the patient is n.p.o. please do not completely skip the Lantus dose as patient's type and??diabetic and can go into DKA ? While patient is n.p.o. Continue??lispro??3 units for blood sugar more than 150 with addition of 3 units for every 50 mg/dLincrease in blood sugar levels every 6 hours Please check blood sugars every 6 hours ? When patient is no longer n.p.o. and is eating: Start lispro 11 units for blood sugar more than 80 with addition of 2 unit for every 50 mg/dL increase in blood sugar levels??3 times a day with each meal Please check blood sugar levels??4 times a day or more frequently if the patient is??hypoglycemic ?? Thank you for consulting endocrine team. ??Endocrine team will continue to follow this patient withyou and make further recommendations based on patient blood sugar levels. ?? Case d/w .??Palmer ?? Heidi Cassidy MD Endocrinology Fellow PGY-4 ?? Total Time Spent Activities performed in this time include chart review, obtaining / reviewing history, performing amedically necessary evaluation, documentation and Ordering of Appropriate tests including medical decision making of Moderate Complexity (45-59 minutes for NEW patient) Problem List/Past Medical History Ongoing Bacterial cellulitis Constipation Diabetic foot infection Diabetic foot ulcers Encounter for screening colonoscopy Fever Hyperglycemia due to diabetes mellitus Hyponatremia Insulin dependent type 1 diabetes mellitus Lactic acid acidosis Severe obesity STEMI (ST elevation myocardial infarction) Medications Inpatient Acetaminophen 325 mg Oral Tablet (PACU ONLY), 975 mg, By Mouth, Once, PRN Ammonium Lactate 12% Topical, 1 application, Topically, 2 times a day aspirin 81 mg oral delayed release tablet, 81 mg, By Mouth, Daily atorvastatin 80 mg oral tablet, 80 mg, By Mouth, Daily Bisacodyl Supp, 10 mg= 1 supp, Rectally, Daily, PRN Dakins 0.0125% Topical Solution, 0.0125 %= 473 mL, Topically, 2 times a day Docusate Sodium Capsule, 100 mg= 1 capsule, By Mouth, 2 times a day Fentanyl Inj (PACU ONLY), 25 mcg= 0.5 mL, IV Push Slowly, Every 5 minutes, PRN gabapentin 300 mg oral capsule, 300 mg, By Mouth, 2 times a day Haloperidol LACTATE Inj (PACU ONLY), 1 mg= 0.2 mL, IV Push, Once, PRN Heparin Inj, 5000 units= 1 mL, Subcutaneous Injection, Every 8 hours Influenza, Quadrivalent Vaccine (Fluzone Quad), 0.5 mL, Intramuscular, Once Insulin LISPRO Sliding Scale, 3-15 units, Subcutaneous Injection, Every 6 hours Insulin LISPRO Sliding Scale, 2-10 units, Subcutaneous Injection, 3 times a day before meals Lantus Inj, 32 units= 0.32 mL, Subcutaneous Injection, Daily in AM Lantus Inj, 36 units= 0.36 mL, Subcutaneous Injection, Daily at bedtime LR 1,000 mL, 1000 mL, IV Infusion metoprolol 50 mg oral tablet, extended release, 50 mg, By Mouth, Daily MiraLax Powder, 17 Gm= 1 pack/packet, By Mouth, Daily, PRN nalOXONE Inj, 0.04 mg= 0.1 mL, IV Push, Every 5 minutes, PRN oxyCODONE 5 mg oral tablet, 5 mg, By Mouth, Every 4 hours, PRN Oxycodone 5mg Oral Tablet (PACU ONLY), 5 mg, By Mouth, Once, PRN Tylenol 325 mg oral tablet, 975 mg, By Mouth, Every 6 hours Unasyn IVPB, 3 Gm, IVPB, Every 6 hours Home aspirin 81 mg oral delayed release tablet, 81 mg, By Mouth, Daily atorvastatin 80 mg oral tablet, 80 mg= 1 tablet, By Mouth, Daily gabapentin 300 mg oral capsule, 300 mg= 1 capsule, By Mouth, 2 times a day Insulin Lispro, 20-44 units, Subcutaneous Injection, 3 times a day before meals Lantus Inj, 36 units= 0.36 mL, Subcutaneous Injection, Daily at bedtime Lantus Inj, 32 units= 0.32 mL, Subcutaneous Injection, Daily in AM metoprolol succinate 50 mg oral capsule, extended release, 50 mg= 1 capsule, By Mouth, Daily Allergies vancomycin doxycycline??(Rash) Social History Alcohol Use: [...] influenza virus vaccine, inactivated 09/14/2013 Recorded * Palmer WIGGINS, Issra: PERFORM Event Display: Consultation Note Authored Date: [id number] Attending Attestation : I have discussed the case and?? the fellow, I agree with the evaluation andtreatment plan as outlined in the fellow's note . ?? * Elijah Ball MD: PERFORM, MODIFY, MODIFY, MODIFY, SIGN, VERIFY Event Display: Consultation Note Authored Date: [id number] Patient: MARINO KUO Age: 48 years Sex: Male : 1975 Associated Diagnoses: None Author: Elijah Ball MD INFECTIOUS DISEASES CONSULTATION NOTE Requesting Attending/Provider: IMANI Gomez Reason for Consult: Concern for osteomyelitis Source of Information: CIS, patient History of Present Illness ([id number]: HPI ???4): This is a 48-year-old man with poorly controlled diabetes seen by infectious diseases on several occasions. Last seen on 06/12/2023 after recent admission where the patient had been evaluated for left heel diabetic wound. At that time it was suspected that this was infected and cultures obtained from debridement showed evidence of Streptococcus group B as well as other Gram stain's from superficial cultures ongoing evidence of gram-negative rods as well as gram- positive cocci, with blood cultures remaining thankfully negative. At that time there was no clear extension to the bone by physical examination and subsequent MRI did not show clear evidence of osteomyelitis but rather reactive infla mmation. MRI was suggested and recommendations were made to treat either for 6 weeks if there was evidence of osteomyelitis versus only 2 weeks if there was no evidence of osteomyelitis. MRI subsequently done that did not show clear evidence of osteomyelitis just marrow edema suspicious for reactive process reason for which the patient was to be treated just for 2 weeks. Patient had debridement and wound VAC placement. It seems that he will was doing well but over the past 3 days VNA and noted some increasing slough material within the wound with increasing odor. VNA called surgical office since they noted significant evidence of maceration and undermining with peeling of the skin concern for worsening wound. Seems that the patient was otherwise asymptomatic. Evaluation of the wound in the vascular surgery office showed significant devitalized tissue that they described as gangrenous with foul odor, probing showing contact with bone. Because of this worsening it was decided to bring the patient into the hospital for further management. Patient consulted to provide further recommendations regarding management. Past Medical and Surgical History: Patient with noted history of insulin-dependent diabetes type 2 with related to morbid obesity and associated with chronic venous stasis ulcers in the legs bilaterally, requiring vein ablation. Has also had third-degree dumont in the lower extremities several years ago that did require hyperbaric oxygen treatment with episodes of recurrent cellulitis, for which [facility]. At one point he had been on suppressive antibiotic therapy with penicillin and subsequently with cephalexin with good effect but subsequently discontinued. As noted above patient with also requiring debridement this past month. Also noted with CAD status post GA. He has also had diabetic retinopathy with a detached retina requiring laser surgery. Recent Antimicrobials: -Presently on Unasyn Medications: Reviewed Antimicrobial Allergies: Appears to develop a rash with the use of doxycycline. Documentation of vancomycin allergy; would appear that might have been somewhat of an anaphylactic reaction. Patient refers that they had to revive me after receiving this medication. Family History: Notable for significant heart disease as well as Parkinson disease Social History: Denies history of tobacco, heavy alcohol, and illicit drug use. Review of Systems Denies any fever, chills, visual disturbance, oral problems, hearing issues, chest pain, palpitations, shortness of breath, nausea, vomiting, diarrhea, problems with urination, decreased sensation orstrength in any extremities, easy bruising or swollen lymph nodes, joint pains, muscle aches, or any changes in weight or sensation of temperature. Physical Examination (68748: 2-7 organ systems or comprehensive single system exam; 73826/41398: 8 organ systems or comprehensive single system exam) .VitalsTemperature 97.6 (11:20) Systolic Blood Pressure 144 (13:44) Diastolic Blood Pressure 65 (13:44) Pulse 84 (13:44) SpO2 100 (11:20) Respiratory Rate 18 (13:44) GENERAL: In no acute distress HEENT: Anicteric, no subconjunctival petechiae, moist oral mucosa without lesions or thrush NECK: Neck supple, without cervical lymphadenopathy CARDIOVASCULAR: Not able to appreciate any murmurs, rubs, or gallops RESPIRATORY: Lungs clear to auscultation GASTROINTESTINAL: Non-distended, normoactive bowel sounds, non-tender GENITOURINARY: No CVAT MUSCULOSKELETAL: Without joint effusions, no tenderness over spine. Bilateral lower extremity lymphedema noted, seems somewhat more prominent on the left. A lot of dry skin deformed toenails noted. Most of the left foot draped in surgical bandages with the patient requesting not to remove since they just put them on SKIN: No diffuse rash present, no stigmata of infective endocarditis NEUROLOGICAL/PSYCH: A&Ox3, grossly intact LINES: Results Review General results All Labs : LABORATORY 07/06/2023 11:38 EST WBC 10.7 k/mm3 RBC 4.39 m/mm3 L Hgb 12.1 Gm/dL L Hct 38.2 % L MCV 87.0 femtoliters MCH 27.6 pg MCHC 31.7 g/dL L Platelet Count 339 k/mm3 Neut % 70.3 % Lymph % 17.6 % [place] % 6.6 % Eos % 3.7 % Baso % 0.7 % Imm Gran 1.1 % Abs. Imm Gran 0.1 k/mm3 Sed Rate 96 mm/hr H Sodium 133 mmol/L Potassium 4.5 mmol/L Chloride 97 mmol/L L Bicarbonate Level 26 mmol/L Anion Gap 10 BUN 8 mg/dL Creatinine-Blood 0.7 mg/dL C-Reactive Protein 9.3 mg/dL H 06/17/2023 2:40 EDT WBC 11.8 k/mm3 H Microbiology: No cultures available yet Impression and Plan Impression: This is a quite pleasant 48-year-old man with above-mentioned problems and comorbidities. Patient being evaluated because of what appears to be recurrence of left heel ulcer infection. At this time difficult to determine if this is recurrence of the infection in the tissues with possible introduction of bacteria at time of wound management or if there could have been a minor bone involvement not identified by MRI with bacteria lingering in reestablishing infection after antibiotic therapy stopped. Regardless, seems to be fairly localized although the wound seems to have progressed to a certain degree now with what appears to be bone exposure. Based on previous culture agree that the patientcan be started and kept on Unasyn; given absence of any toxicity or evidence of sepsis would preferto keep the same antibiotics he was on the last time. This would allow for surgical debridement andno culture samples will be obtained (of both tissue and bone hopefully) and if no organisms are present, that we do not spoil the culture results due to antibiotic exposure. I was later the patient were to develop any clinical deterioration, evidence of toxicity or sepsis, patient should be placed on dual therapy with Zosyn, with possibly addition of daptomycin until further information available. Again, since the patient is otherwise doing quite well, believe that this is not necessary at thistime. Recommendations: -Continue therapy with Unasyn -Please obtain both tissue and bone cultures -Do not see utility for MRI since the patient is undergoing surgery and bone is clearly exposed -If patient were to clinically deteriorate, become toxic/septic, please stop Unasyn and start the patient on Zosyn and daptomycin Thank you for the consultation. Infectious Diseases will continue to follow the patient with you. Disclaimer: This dictation was accomplished with use of [employer] voice recognition software, prone tomedical word misidentifications and grammatical errors. The physician does strive to identify and correct these, but some could still be present. Please do not hesitate to contact physician for clarifications. Note * Jennifer STEVENS, Messi Callahan: PERFORM Event Display: Discharge/Transfer Note Hospital Authored Date: 1345- and son present for discharge instructions including left heel dressing change; wound clean with pink-red base; small amount light pale yellow drg; no odor to wound; and son feel comfortable with dressing change until VNA is able to come to home * Messi Rodriguez RN: PERFORM Event Display: Discharge/Transfer Note Hospital Authored Date: Nursing Discharge Note Entered On: 07/13/2023 10:53 EST Performed On: 07/13/2023 10:53 EST by Messi Rodriguez RN Nursing Discharge Note 2 Discharge Time : 07/13/2023 14:40 EST Verbalized Understanding of D/C Plan By : Patient, Significant other Messi Rodriguez RN - 07/13/2023 16:32 EST Discharge Level of Care at Discharge : Homehealth/VNA Discharge VNA/Hospice/Home Care(v001) : [facility] [phone] Patient Left Unit Via : Wheelchair Patient Accompanied Off Unit with : Significant other, Responsible adult DC Instructions Provided & Signed by Pt : Yes Patient Understands D/C Instructions : Yes Patient Instructions Discharge Signed : Yes Did Pt have Specialty Bed or Wound Vac : No Messi Rodriguez RN - 07/13/2023 10:53 EST * Delfino Gomez NP: PERFORM, MODIFY, MODIFY Event Display: Discharge/Transfer Note Hospital Authored Date: [id number] Patient: ??MARINO KUO ? Age:??48 Years?Sex:??Male?:??1975?? Admit Date Admission Date: 07/06/2023 Discharge Date 07/13/23 Discharge Diagnoses Diabetic foot infection, 07/06/2023 Hospital Course Marino Kuo is a 48-year-old male past medical history CAD s/p DESx2 RCA/LAD (03/2022), HTN, T1DM (hemoglobin A1c 8.4 08/2022), obesity, chronic nonhealing lower extremity wounds, chronic venous stasis presented on 07/06/23 to [facility] as a direct admit from the vascular office for worsening left heel would. He had previous left heel debridement (06/10, Cristian) and LLE angiogramand re-debridement (06/16, Ninfa). In the angio, all 3 vessels were patent without significant stenosis. He ultimately had wound vac placed and discharged home +VNA on 06/20/23 with 4 days of Augmentin to complete antibiotic course. Pt is now s/p left heel excisional debridement (07/07/23/Susan). Patient has clinical osteo with exposed bone at wound base. OR cx grew Proteus/Morganella, on Zosyn. Blood cx 06/05-negative.??Patient underwent bedside debridement 07/11; tolerated well. Pt continued on Zosyn in house and transitioned to PO Levaquin as per ID.?? We will discharge on insulin regimen by BIDS with close follow up at [facility].?? Pt tolerating diet without nausea or vomiting.?? Pain well controlled.?? Pt voiding without difficulty.?? Pt ambulatory to baseline.?? Pt is seen as ready for discharge home on 07/13/23.?? Objective/Physical Exam on Day of Discharge Vitals & Measurements T:??97.6?F?? HR:??66??(Peripheral)?? RR:??18?? BP:??123/67?? SpO2:??97%?? HT:??182.88??cm?? General appearance: No apparent distress, appears stated age, well developed. Head: Normocephalic, atraumatic. Cardiac: RRR, no murmurs?? Respiratory: Clear to auscultation bilaterally. Abdomen: Soft, nontender, nondistended. No guarding or rebound. No palpable mass. Extremities: Able to move all extremities without difficulty. Warm. Neurologic status: Alert and oriented x 3. No focal deficits. Psych: Mood and affect normal. Vascular: L heel clean wound base except for some fibrinous exudate noted on inferior edge of wound; no purulence noted.?? Left: BP AT/DP/PT Future Appointments Tuesday 9:00 AM EST ?? With: Caroline Parada NP Where: [address] [address]- Status: Pending Tuesday 8:40 AM EST ?? With: Nazia Sandoval MD Where: [facility] Infectious Disease [address] [place] [address]- Status: Pending 2023 8:00 AM EST ?? Where: [facility] Status: Pending Home Health Face to Face *Denotes mandatory barboza ?? *I certify that this patient is under my care and that I or an allowed non- physician working with me had a face to face encounter with the patient on this date:??07/13/2023 09:08 ?? *The encounter with the patient was in whole, or in part, for the following medical condition, which is the primary diagnosis(es) for home health care:??Diabetic foot infection (E11.628) STEMI (ST elevation myocardial infarction) (I21.3) ? *Select the indications for the discipline/s that are being arranged for this patient. Nursing (select all that apply): [_] None [X] Medication management (reconciliation, teaching)?? [X] Chronic disease management?? [X] Wound care and treatment?? [X] Home safety evaluation [_] Administer SQ/IM/IV medications?? [_] Cath care?? [_] Drain care?? [_] Trach or GT care?? Other Daily Dakins soaked gauze to left heel, cover with DSD, Kerlix and shilpi wrap.?? Occupation Therapy (select all that apply): [_] None [_] ADL Management [_] Fall prevention training [_] Energy conservation [_] Cognitive training Other _ Physical Therapy (select all that apply): [_] None [X] Functional mobility training [X] Home exercise program to strengthen [X] Increase ROM?? [X] Falls prevention training [X] Home maintenance program for chronic disease Other _ Speech Therapy (select all that apply): [_] None [_] Swallow evaluation and training [_] Speech and language training [_] Cognitive training to process, organize, and/or recall information Other _ ? *Homebound due to (select all that apply): [_] Inability to leave home without assistance/supervision [_] Inability to ambulate without assistance [_] Pain [_] Decreased strength and endurance [X] Unsteady gait [_] Severe SOB and fatigue [_] Impaired transfers [_] Inability to negotiate stairs [_] Limited weight bearing [_] Mental status change? *Physician Signature:??Dr Roseann Davis MD ?? *By signing this, I certify that I have personally evaluated the patient and agree with the findings and recommendations as documented above. ? althFTF Procedures Performed This Visit Indication for Surgery 48-year-old diabetic male with??a left heel ulcer that is necrotic and infected. ??He is coming to the operating room today for debridement. Preoperative Diagnosis 1. ??Left heel ulcer??with exposed, necrotic bone 2.?? Osteomyelitis calcaneus 3.?? Insulin-dependent diabetes mellitus 4.?? Obesity 5.?? Coronary artery disease??status post STEMI Postoperative Diagnosis Same as above Operation Excisional debridement of skin,??subcutaneous fatty tissue, tendon, muscle, and bone??from the [facility] Surgeon(s) Susan WIGGINS, Roseann Lucas (Primary Surgeon) Inpatient Medications Medications (20) Active SCHEDULED: (12) Acetaminophen 325 mg Tablet (Tylenol 325 mg oral tablet) ??975 mg, By Mouth, Every 6 hours Ammonium Lactate 12% Cream (Ammonium Lactate 12% Topical) ??1 application, Topically, 2 times a day Aspirin 81 mg EC Tablet (aspirin 81 mg oral delayed release tablet) ??81 mg, By Mouth, Daily Atorvastatin 80 mg Tablet (atorvastatin 80 mg oral tablet) ??80 mg, By Mouth, Daily Dakins Solution 0.0125% Strength (Dakins 0.0125% Topical Solution) ??0.0125 % 473 mL, Topically, 2 times a day Docusate Sodium 100 mg Capsule (Docusate Sodium Capsule) ??100 mg 1 capsule, By Mouth, 2 times a day Gabapentin 300 mg Capsule (gabapentin 300 mg oral capsule) ??300 mg, By Mouth, 2 times a day Heparin 5000 units/mL Inj (1 mL) (Heparin Inj) ??5,000 units 1 mL, Subcutaneous Injection, Every 8 hours Insulin Glargine 100 units/mL Inj (Lantus Inj) ??42 units 0.42 mL, Subcutaneous Injection, 2 times a day Insulin Lispro 100 units/mL Inj (3mL) (Insulin LISPRO Sliding Scale) ??20-35 units, Subcutaneous Injection, 3 times a day before meals Levofloxacin 750 mg Tablet (Levofloxacin Tablet) ??750 mg, By Mouth, Every 24 hours Metoprolol 50 mg XL Tablet (metoprolol 50 mg oral tablet, extended release) ??50 mg, By Mouth, Daily CONTINUOUS: (0) PRN: (8) Bisacodyl 10 mg Suppository (Bisacodyl Supp) ??10 mg 1 supp, Rectally, Daily Dextrose Inj Syringe (Dextrose 50% Inj Syringe (25Gm)) ??12.5 Gm, IV Push Slowly, Every 20 minutes Dextrose Inj Syringe (Dextrose 50% Inj Syringe (25Gm)) ??25 Gm, IV Push Slowly, Every 15 minutes Glucagon 1 mg Inj (Glucagon Inj) ??1 mg, Intramuscular, Once Glucose 40% Gel (15 Gm) (Glucose Gel) ??15 Gm, By Mouth, Every 20 minutes Glucose 40% Gel (15 Gm) (Glucose Gel) ??30 Gm, By Mouth, Every 20 minutes OxyCODONE 5 mg IR Tablet (oxyCODONE 5 mg oral tablet) ??5 mg, By Mouth, Every 4 hours Polyethylene Glycol 17 Gm Powder (MiraLax Powder) ??17 Gm 1 pack/packet, By Mouth, Daily Discharge Medications Acetaminophen (Tylenol 325 mg oral tablet)?975?Milligram?By Mouth?Every 6 hours Aspirin (aspirin 81 mg oral delayed release tablet)?81?Milligram?By Mouth?Daily Atorvastatin (atorvastatin 80 mg oral tablet)?1?tab(s)?80?Milligram?By Mouth?Daily Docusate (docusate sodium 100 mg oral capsule)?1?capsule?100?Milligram?By Mouth?2times a day?for 10?Days Gabapentin (gabapentin 300 mg oral capsule)?300?Milligram?1?capsule?By Mouth?2 times a day Insulin Glargine (Lantus Inj)?0.42?Milliliter?42?unit(s)?Subcutaneous Injection?2times a day Insulin Lispro (insulin lispro 100 u/ml subcutaneous injection)?20-35 units?Subcutaneous Injection?3 times a day before meals?<< Sliding Scale Comments >>100 - 149 ?? 20 unitsCall if less than 93194 - 199 ?? 23 units 200 - 249 ?? 26 units 250 - 299 ?? 29 units 300 - 349 ?? 32 units 350 - 399 ?? 35 units Call if greater than 400<< Sliding Scale Comments >> Levofloxacin (levoFLOXacin 750 mg oral tablet)?750?Milligram?By Mouth?Every 24 hours?for 6?week(s) Metoprolol (metoprolol succinate 50 mg oral capsule, extended release)?1?capsule?50?Milligram?By Mouth?Daily?start on 04/16 Oxycodone (oxyCODONE 5 mg oral tablet)?5?Milligram?By Mouth?Every 4 hours?as needed?for 5?Days?Pain , Moderate Sodium Hypochlorite Topical (sodium hypochlorite 0.0125% topical solution)?See Instructions?Topically daily Labs Last 24 Hours BLOOD COUNT & DIFF ? Event Name?? Event Result?? Date/Time?? WBC 8.6 k/mm3 07/13/23 01:09:00 RBC 4.37 m/mm3??Low 07/13/23 01:09:00 Hgb 11.8 Gm/dL??Low 07/13/23 01:09:00 Hct 38.4 %??Low 07/13/23 01:09:00 MCV 87.9 femtoliters 07/13/23 01:09:00 MCH 27 pg 07/13/23 01:09:00 MCHC 30.7 g/dL??Low 07/13/23 01:09:00 Platelet Count 436 k/mm3 07/13/23 01:09:00 MPV 8.3 femtoliters??Low 07/13/23 01:09:00 Nucleated RBC (Automated) 0 #/100 WBC'S 07/13/23 01:09:00 ? CHEM GENERAL ? Event Name?? Event Result?? Date/Time?? Sodium 138 mmol/L 07/13/23 01:11:00 Chloride 103 mmol/L 07/13/23 01:11:00 Bicarbonate Level 27 mmol/L 07/13/23 01:11:00 Anion Gap 8 07/13/23 01:11:00 BUN 14 mg/dL 07/13/23 01:11:00 Creatinine-Blood 0.9 mg/dL 07/13/23 01:11:00 Calcium, Ionized pH Corrected 1.2 mmol/L 07/13/23 01:11:00 Phosphorus 4.2 mg/dL 07/13/23 01:11:00 Magnesium 2.6 mg/dL??High 07/13/23 01:11:00 ? Consultants Lizzy WIGGINS, Elijah Frost?? Palmer WIGGINS, Jun * Jennifer STEVENS, Messi B: PERFORM, MODIFY, MODIFY, MODIFY Event Display: Patient Education/Instruction Authored Date: Inpatient Adult Discharge Instructions [address] [address] Name: MARINO KOU : 1975 Visit: 07/06/2023 11:14:00 Current Date: 07/13/2023 10:56 Account: [id number] Inpatient Adult Discharge Instructions We would like [...] and their families. Surveys are administered by [employer] ?? If further treatment with your primary care physician or another doctor is recommended, it is important for you to keep the appointment. Call your primary care physician or return to the Emergency Department immediately if your condition worsens, fails to improve, or new symptoms develop. If you need to find a doctor, you can call [facility] Link for a referral at [phone] or toll free at [phone]) or log in to [email or web address].. ?? [facility], in keeping with [facility] guidance, no longer requires face [...] a health care mekhi of your choosing. [employer] [employer] is a website that allows you to securely view your medical information including your hospital discharge summary, office visit summaries, medications and follow-up visits. You can also request appointments, renew medications, and request access to your medical information using a health care mekhi of your choosing, or just ask a question. You can enroll at [email or web address] or register during your next office visit. You have been discharged from [facility], Patient Care Unit: M6. If you have any questions regarding these instructions after you leave, please call us and we will be happy to assist you. [facility] Your Care Team Attending Physician Ninfa WIGGINS, Bolivar De Jesus Consulting Providers Gene DIALLO, Bridget Quiñones; Lizzy WIGGINS, Elijah Frost; Lori WIGGINS, Nazia; Susan WIGGINS, Roseann Lucas;Hasmukh WIGGINS, Mau Chakraborty MD, Jun Discharging Providers Priest DIALLO, Delfino Cates Reason for Admission DIABETIC FOOT INFECTION Your Diagnosis Diabetic foot infection STEMI (ST elevation myocardial infarction) Tests Performed Below is a partial list of the tests performed during your hospitalization. You may have had other tests and procedures not included in this list. Please discuss all test results with your provider. Basic Metabolic Panel BUN CBC CBC w/ Differential Creatinine CRP ESR GLUCOSE POC HEMOGLOBIN A1C HOLD ROBISON TUBE HOLD GREEN TUBE Ionized Calcium Lytes Magnesium Level Phosphorus Level Type and Screen VBG XR Foot Min 3 Views Left Primary Care Provider Juan Mondragon DO Advance Directive Health Care Proxy on File Yes - Health Care Proxy Discharge Vitals Temperature: 97.6 DegF Height: 182.88 cm Pulse Rate: 64 bpm ?? Respiratory Rate: 16 br/min ?? Systolic Blood Pressure: 123 mm Hg ?? Diastolic Blood Pressure: 67 mm Hg ?? Oxygen Saturation: 97 % ?? Studies Pending All tests and labs ordered during this hospital stay have been completed unless listed below. Please discuss all pending results with your provider listed above in these instructions. ?? AFB Culture w/ AFB Smear, Nonrespiratory (ACID FAST CULT,NON-RESP) Add On Lab Order BUN CBC Creatinine Electrolytes (Lytes) Fungal Culture, Nonrespiratory (FUNGAL CULT,NON-RESPIRATORY) Ionized Calcium Ketone Bodies Panel Magnesium Level Phosphorus Level What to do next Instructions From Your Doctor Discharge Orders Scheduled Follow-Up Appointments Tuesday 9:00 AM EST ?? With: Caroline Parada NP Where: [facility] [address] [place] [address]- Status: Pending Tuesday 8:40 AM EST ?? With: Nazia Sandoval MD Where: [facility] Infectious Disease [address] [place] [address]- Status: Pending 2023 8:00 AM EST ?? Where: [facility] Status: Pending [phone] [facility] ?? [phone] [facility] Infect[facility] You Need to Schedule the Following Appointments Follow Up with??Roseann Davis Where: [address] [facility] [place] [address]- Business (1) Follow Up with??Juan Mondragon When:??In 0 days See above for appointment date Discharge Medications SHIELA MARINO :1975 Visit Date:07/06/2023 Medications: Please continue your medications until treatment is completed or stopped by your provider. Medications not listed below should be discontinued. Discuss any questions related to medications with your provider. What How Much When Why Instructions Next Dose New Acetaminophen (Tylenol 325 mg oral tablet) 975 Milligram Oral Every 6 hours 07/13 3pm New Docusate (docusate sodium 100 mg oral capsule) 1 capsule Oral Twice a day Duration: 10 Days Pickup at [facility] #[id number] 07/13 9pm New Levofloxacin (levoFLOXacin 750 mg oral tablet) 750 Milligram Oral Every 24 hours Duration: 6 week(s) Pickup at [facility] #[id number] 07/14 9am New Oxycodone (oxyCODONE 5 mg oral tablet) 5 Milligram Oral Every 4 hours as needed for Pain , Moderate Duration: 5 Days Pickup at [facility] #[id number] as needed New Sodium Hypochlorite Topical (sodium hypochlorite 0.0125% topical solution) See instructions Topically daily ?? Pickup at [facility] #[id number] 07/14 Changed Insulin Glargine (Lantus Inj) 42 unit(s) Subcutaneous Injection Twice a day 07/13 9pm Changed Insulin Lispro (insulin lispro 100 u/ ml [...] 400 << Sliding Scale Comments >> ?? 07/13 4:30pm Unchanged Aspirin (aspirin 81 mg oral delayed release tablet) 81 Milligram Oral Daily STEMI (ST elevation myocardial infarction) 07/14 9am Unchanged Atorvastatin (atorvastatin 80 mg oral tablet) 1 tab(s) Oral Daily 07/14 9am Unchanged Gabapentin (gabapentin 300 mg oral capsule) 1 capsule Oral Twice a day 07/13 9pm Unchanged Metoprolol (metoprolol succinate 50 mg oral capsule, extended release) 1 capsule Oral Daily STEMI (ST elevation myocardial infarction) start on ?? 07/14 9am [id number]: [address], [place] [id number] [phone] Test Results Below is a partial list of the most recent Laboratory test results done prior to this discharge. You may have had other tests and procedures not included in this list. Please discuss all test resultswith your provider. Est Creatinine Clearance - 108.98 mL/min (07/13/2023) Basic Metabolic Panel (07/07/2023) ???Sodium - 131 mmol/L???Potassium - 4.8 mmol/L???Chloride - 95 mmol/L???Bicarbonate Level - 27 mmol/L???Anion Gap - 9???Glucose Level - 331 mg/dL???BUN - 9 mg/dL???Creatinine-Blood - 0.8 mg/dL???Estimated GFR Creatinine - 110 ML/MIN/1.73 M2???Calcium - 8.5 mg/dL BUN (07/13/2023) ???BUN - 14 mg/dL CBC (07/13/2023) ???WBC - 8.6 k/mm3???RBC - 4.37 m/mm3???Hgb - 11.8 Gm/dL???Hct - 38.4 %???MCV - 87.9 femtoliters???MCH - 27.0 pg???MCHC - 30.7 g/dL???Platelet Count - 436 k/mm3???RDW-SD - 50.1 femtoliters???MPV - 8.3 femtoliters???Nucleated RBC (Automated) - 0.0 #/100 WBC'S???Abs. NRBC - 0.0 k/mm3 CBC w/ Differential (07/06/2023) ???WBC - 10.7 k/mm3???RBC - 4.39 m/mm3???Hgb - 12.1 Gm/dL???Hct - 38.2 %???MCV - 87.0 femtoliters???MCH - 27.6 pg???MCHC - 31.7 g/dL???Platelet Count - 339 k/mm3???RDW-SD - 47.7 femtoliters???MPV - 8.4 femtoliters???Nucleated RBC (Automated) - 0.0 #/100 WBC'S???Abs. NRBC - 0.0 k/mm3???Abs. Neut - 7.5 k/mm3???Abs. Lymph - 1.9 k/mm3???Abs. [place] - 0.7 k/mm3???Abs. Eo - 0.4 k/mm3???Abs. Baso - 0.1 k/mm3???Neut % - 70.3 %???Lymph % - 17.6 %???[place] % - 6.6 %???Eos % - 3.7 %???Baso % - 0.7 %???Imm Gran - 1.1 %???Abs. Imm Gran - 0.1 k/mm3 Creatinine (07/13/2023) ???Creatinine-Blood - 0.9 mg/dL???Estimated GFR Creatinine - 105 ML/MIN/1.73 M2 CRP (07/06/2023) ???C-Reactive Protein - 9.3 mg/dL ESR (07/06/2023) ???Sed Rate - 96 mm/hr GLUCOSE POC (07/13/2023) ???Glucose, POC - 283 mg/dL HEMOGLOBIN A1C (07/11/2023) ???Hemoglobin A1C (Monitoring) - 8.0 % HOLD ROBISON TUBE (07/06/2023) ???Hold Robison Top - SPECIMEN DISCARDED AFTER 1 WEEK HOLD GREEN TUBE (07/07/2023) ???Hold Green Top - SPECIMEN DISCARDED AFTER 1 WEEK Ionized Calcium (07/13/2023) ???Calcium, Ionized pH Corrected - 1.20 mmol/L Lytes (07/13/2023) ???Sodium - 138 mmol/L???Potassium - 4.8 mmol/L???Chloride - 103 mmol/L???Bicarbonate Level - 27 mmol/L???Anion Gap - 8 Magnesium Level (07/13/2023) ???Magnesium - 2.6 mg/dL Phosphorus Level (07/13/2023) ???Phosphorus - 4.2 mg/dL Type and Screen (07/06/2023) ???Blood Type - O Positive???Antibody Screen - Negative VBG (07/07/2023) ???Specimen Type - Blood Gas - VENOUS???pH, Venous - 7.42???pCO2, Venous - 44 mm Hg???pO2, Venous -28 mm Hg???Bicarbonate, Estimated(Venous) - 28 mmol/L Immunizations This Visit Given Vaccine Date influenza virus vaccine, inactivated 07/08/2023 Allergies (NKA means No Known Allergies) vancomycin doxycycline??(Rash) Problems Active Problems??(12) Bacterial cellulitis?? Constipation?? Diabetic foot infection?? Diabetic foot ulcers?? Encounter for screening colonoscopy?? Fever?? Hyperglycemia due to diabetes mellitus?? Hyponatremia?? Insulin dependent type 1 diabetes mellitus?? Lactic acid acidosis?? Severe obesity?? STEMI (ST elevation myocardial infarction)?? Education Materials Below is the list of Educational Leaflet Providered with your Discharge Instructions. BVS-Special Instructions?? Wound Debridement Discharge Instructions?? Valuables and Belongings I fully understand and agree that [facility] accepts no responsibility for all my personal [...] present Date for Pt to Sign Valuables/Belongings: 07/07/23 10:05:00 ?? Other Discharge Information ? Case Management Discharge Plan?? Discharge Plan?? Discharge Agency Information?? Discharge Level of Care at Discharge: Homehealth/VNA Name of Agency #1: [facility] Discharge VNA/Hospice/Home Care: [facility] [phone] Service Categories #1: Physical Therapy, Longterm ?? Service Comments #1: The nurse will see you the day after discharge. They will call before they come to set up a time to see you. If they do not call within 24 hours, please call the main VNA number to inquire when they are coming. ?? Pulmonary Rehab Status?? Pulmonary Rehab Discharge Status?? Respiratory Rate: 16 br/min ? Common Emergency Awareness Tips IS [...] are strongly encouraged to quit. Please call [facility] at [phone] or [phone] ([phone]) or log in to [email or web address] for referrals to smoking cessation programs. ?? 307 Suicide & Crisis Lifeline is available 14/03 if you or someone you know needs to find a reason to keep living. By calling 735 you'll be connected to a skilled, trained counselor at a crisis center in your area. INPATIENT DISCHARGE INSTRUCTIONS SIGNATURE PAGE MARINO KUO Location:[facility] Registration Date and Time:07/06/2023 11:14 EST Primary Care Physician: Juan Mondragon DO, Attending Physician: Bolivar Ocasio MD, I MARINO KUO, have received the above patient education materials/instructions and have verbalized understanding. If ambulance or transport services are being used I further acknowledge being given a choice of service. ?? If you need to contact me, please call me at this number: . Patient/Commercial Credit Head Name: Patient/Commercial Credit Head Signature: Relationship to Patient: Witness Name/Signature: Date: * Messi Rodriguez RN: PERFORM, SIGN, VERIFY Event Display: Patient Education Handout Authored Date: * Delfino Gomez NP: PERFORM Event Display: Patient Education Leaflets Authored Date: [id number] BVS-Special Instructions ?? 60 Vascular Special Instructions ?? If you develop fever, chills, increased pain, nausea, vomiting, bleeding, or increased redness or pus around the wound please call the vascular surgery office at . Please take medications as prescribed and do not drive while on narcotic medications. ?? If you have any questions, please call the vascular surgery office at . ?? Please call your Primary Care Provider within 1 week for post hospital follow up and review of yourmedications. ? * Delfino Gomez NP: PERFORM Event Display: Patient Education Leaflets Authored Date: [id number] Wound Debridement Discharge Instructions ?? 325 WOUND DEBRIDEMENT DISCHARGE INSTRUCTIONS ?? You had a wound debridement today. Wound debridement removes necrotic () and poorly healing tissues from a wound to start wound healing. With debridement, tissues and sometimes even normal healthy tissues are removed slowly from the wound. ?? Having your wound debrided may start wound healing, heal wounds faster, decrease pain, and prevent other problems. ?? Bathing ??? No showering or tub baths until cleared by vascular surgeon. ?? Wound Care ??? Keep your wounds clean and dry. Use only soap and water to cleanse the area around the incision.? Your physician will order the type of dressing you are to have to your surgical site at the time of hospital discharge.? Do not use perfumed soaps or body washes, lotions, creams, oils orointments on your wound. This may irritate your wound and put you at risk for an infection. ??? Check your wound for drainage, redness, increased tenderness or edges pulling apart.?? Some bruising and discoloration is normal in the first week following surgery. ?? Limb Elevation ??? You may experience some swelling following surgery. ??? It is important that you are not sitting for long periods of time with your limb down.?? Elevate your surgical extremity as much as possible. ??? If swelling continues or worsens call the vascular surgery office. ?? Activity ??? Limit movements such as stretching to prevent bleeding, shearing and swelling in the wound. ???If the debridement site is located on your foot, no weight bearing until you are told by your physician that this is allowed. ??? Avoid trauma to the surgical site. ??? It is important to continue todo the coughing and deep breathing exercises to help prevent breathing complications. ?? Driving ??? No driving until cleared by your surgeon. ??? Always wear a seat belt. ?? Pain ??? You may have some wound discomfort. You will be given prescription medication for the pain and use it if you need it.? Call the Vascular SURGEON ? For any wound redness, swelling, tenderness, drainage, or odor. ??? For a temperature of 101.5 degrees F or greater. ??? For unusual or severe limb pain, loss of sensation or movement, coldness or discoloration of the limb, and any skin breakdown of the limb. ?? Seek care IMMEDIATELY if? You have increased or unusual pain or numbness of limb, or sudden loss of movement in your limb. ??? Your limb becomes very cold, or turns pale or blue. ??? You suddenly have trouble breathing ??? Your stitches or tiago come apart or separate ??? Your incision suddenly starts bleeding and/or your dressing becomes soaked with blood ?You have signs of a heart attack:?? CALL 911 right away. You may need an ambulance to take you to the hospital. Do not drive yourself or wait for your doctor to call you back.?? Signs of a heart attack may be: o Chest pain or discomfort, including squeezing, crushing, pressure, tightness or heaviness in the chest. o Pain or discomfort in your arms, shou lders, neck, back or jaw. o Indigestion, such as heartburn and upset stomach. o Nausea (feel sick to your stomach) and vomiting (throwing up). o Pain in your abdomen (stomach). o Shortness of breath.o Sweating, weakness or fainting (passing out). ?? Follow-up ??? A follow up appointment should be made with your surgeon for 1 week following discharge.?? If you do not have an appointment scheduled already, make an appointment when you get home.?? Follow up care is important; it is strongly encouraged for you to keep your appointment. You may have more than one appointment, one with your surgeon and one with your primary care doctor. ??? Be sure to see your primary care physician 1-2 weeks after hospital discharge. ??? Ask your doctor when you can return to work. ??? If you have any questions, please call the vascular surgeons at [phone]. ? If you need to schedule a follow up appointment or have a question for a physician, please call [facility] Scheduling[facility]Access Services at [phone] and press option 1 for Heart & Vascular. ? Patient Care team information Care Team Personnel Name: Matilda Lowe RN Position: [facility] RN Member Role: Primary Care Nurse Name: Karen Farias RN Position: [facility] RN Member Role: Primary Care Nurse Name: Akil Zelaya RN Position: S RN Member Role: Primary Care Nurse Name: Agnes Mccann RN Position: S RN Member Role: Primary Care Nurse Name: Roseann Sullivan RN Position: S RN Member Role: Primary Care Nurse Name: Ebony Victoria NP Position: [facility] Associate Professional Member Role: [employer] Provider Address: Address: [address] [place] [id number] Name: Rosalba Ugalde RN Position: [facility] RN Member Role: Primary Care Nurse Name: Juan Mondragon DO Position: [facility] Physician (General Medicine) Member Role: PCP Address: Address: [address] [place] [id number] Name: Eva Holguin Position: S RN Member Role: Primary Care Nurse Name: Flori Lilly RN Position: [facility] RN Member Role: Primary Care Nurse Name: Madeline Wren RN Position: [facility] RN Member Role: Primary Care Nurse Name: Izabel Guy RN Position: [facility] RN Member Role: Primary Care Nurse Name: Carmen Gates RN Position: [facility] RN Member Role: Primary Care Nurse Name: Autumn Montgomery RN Position: [facility] RN Member Role: Primary Care Nurse Name: Brittny Luna RN Position: [facility] RN Member Role: Primary Care Nurse Care Team Related Persons Name: SHIELA GABBIE Address: [address] [place] [address] Name: BRANDI KUO
--- OUTSIDE RECORDS SUMMARY | 2024-03-29 11:59 | XMS_ITS | Continuity of Care Document ---
Author Organization [facility] Address [address] [place] [id number]- Care Team Providers Care Tobacco Sampler Name Role Phone Ciaran WIGGINS, Doroteo De Jesus Primary Care Physician [phone] [place] [facility] [place]): [place]21 - 01/08/21 [facility] [address] [place] [id number]- Attending Physician: Anna WIGGINS, Arun Kong Referring Physician: Miroslava WIGGINS, Latosha Sifuentes Allergies, Adverse Reactions, Alerts Substance Reaction Severity Status vancomycin Persistent Severe Active Medications Bilateral Juxtalite HD knee-high garments Bilateral Juxtalite [...] 18:54:22 EDT Start Date: 12/05/18 Status: Ordered simvastatin 40 mg oral tablet 40 mg, 1, tablet, By Mouth, Daily at bedtime, Refills 0, Maintenance, 12/05/18 18:53:37 EDT Start Date: 12/05/18 Status: Ordered Vitamin C By Mouth, Daily, 0 Refills, Maintenance, 06/24/20 4:15:00 EST Start Date: 06/24/20 Status: Ordered Problem List Condition Effective Dates Status Health Status Inform ant Bacterial cellulitis(Confirmed) Active Vital Signs Most recent to oldest [Reference Range]: 1 Height 183 cm (01/01/21 10:56 AM) Weight 145.9 kg (01/01/21 10:56 AM) Oxygen Saturation [94-100 %] 96 % (01/01/21 10:56 AM) Pulse Rate [55-90 bpm] 91 bpm *H* (01/01/21 10:56 AM) Body Mass Index [18.5-24.99] 43.57 *>HHI* (01/01/21 10:56 AM) Blood Pressure [90-138/55-84 mm Hg] 111/ 77mm Hg (01/01/21 10:56 AM) Temperature [96.8-100.4 DegF] 96.8 DegF (01/01/21 10:56 AM) Blood pressure sites Arm, left (01/01/21 10:56 AM) Temperature Route Temporal (01/01/21 10:56 AM) Social History Social History Type Response Smoking Status Never (less than 100 in lifetime) entered on: 06/23/20 Sex
--- OUTSIDE RECORDS SUMMARY | 2024-03-29 11:59 | XMS_ITS | Continuity of Care Document ---
Author Organization [facility] Address [address] [place] [address]- Care Team Providers Care Clinical Project Assistant Name Role Phone Juan Mondragon DO Primary Care Physician [place] [facility] [place](s): 02/02/24 - 02/09/24 [facility] [address] [place] [id number] Attending Physician: Shantelle DIALLO, Nan [...] Maintenance, 04/15/22 12:39:00 EDT,Route to Pharmacy Electronically, [facility], Partial fill upon patient request if [...] capsule, 0 Refills, Maintenance, 07/13/23 9:01:00EST, Capsule, [id number], Partial fill upon patient request if the [...] opioid drug. Start Date: 07/28/23 Status: Ordered ezetimibe 10 mg oral tablet 0 Refills, Maintenance, 02/02/24 9:53:00 EDT, Partial fill upon patient request if the prescriptionis for a schedule II opioid drug. Start Date: 02/02/24 Status: Ordered gabapentin 300 mg oral capsule [...] Refills, Maintenance, 04/15/22 12:40:00 EDT, ER Capsule, [facility], Partial fill upon patient request if the prescription is for a schedule II opioid drug., 183, cm, .. Start Date: 04/15/22 Status: Ordered physical therapy physical therapy, See Instructions, # 1 each, Refills 0, Tot. Refills 0, Maintenance, left BKA, gait and balance training using prosthesis, 09/14/23 9:58:00 EST, Supply Start Date: 09/14/23 Status: Ordered stump faucet polisher stump faucet polisher, See Instructions, # 1 each, Refills 0, [...] oldest [Reference Range]: 1 Height 183 cm (02/02/24 9:47 AM) Weight 142.5 kg (02/02/24 9:47 AM) Oxygen Saturation [94-100 %] 98 % (02/02/24 9:47 AM) Pulse Rate [55-90 bpm] 81 bpm (02/02/24 9:47 AM) Body Mass Index [18.5-24.99 kg/m2] 42.55 kg/m2 *>HHI* (02/02/24 9:47 AM) Blood Pressure [90-138/55-84 mm Hg] 122/ 78mm Hg (02/02/24 9:47 AM) Blood pressure sites Arm, left (02/02/24 9:47 AM) Weight Obtained Via Patient/family state d (02/02/24 9:47 AM) Social History Social History Type Response Tobacco Use: pt denies. Sex Note * Joelle Cole MA: PERFORM Event Display: Patient Education/Instruction Authored Date: Ambulatory Adult Visit Summary [address] [address] Name: MARINO TSESOPHIE : 1975?? Visit: 02/02/2024 09:30?? Ambulatory Visit Instructions ?? Your Care Team Primary Care Provider Juan Mondragon DO? This Visit Provider Nan Pepper NP Your Diagnosis PAD (peripheral artery disease) Vitals Signs Pulse Rate: 81 bpm Height: 183 cm Systolic Blood Pressure: 122 mm Hg Weight: 136.5 kg Diastolic Blood Pressure: 78 mm Hg Body Mass Index:??40.76 kg/m2??Critical Oxygen Saturation: 98 % Body surface area: 2.63 What to do next Follow-Up Appointments Follow Up with??Shantelle DIALLO, Nan Means When:??08/10/2024 10:30 AM EST Where: [address] [facility], [address] [facility] [place] [address]- Follow Up with??[facility] When:??08/03/2024 01:00 PM EST Where: [address] [place] [address]- [phone] Follow up Appointment - Ordered?-- book DEMETRIO/TBI, exam in July, 02/02/24 10:15:00 EDT Medications The list below reflects the information in our records and provided by you today along with any changes made during this visit. Please continue your medications until treatment is completed or stopped by your provider. If this is different from the information you have or there are other questions,please contact the prescribing provider. What How Much When Why Instructions Unchanged Acetaminophen (acetaminophen 325 mg oral tablet) 650 Milligram Oral Every 4 hours as needed for Pain , Mild Temperature Greater than 100.5 ?? Unchanged Aspirin (aspirin 81 mg oral delayed release tablet) 81 Milligram Oral Daily STEMI (ST elevation myocardial infarction) Unchanged Atorvastatin (atorvastatin 80 mg oral tablet) 1 tab(s) Oral Daily Unchanged Docusate (docusate sodium 100 mg oral capsule) 1 capsule Oral Twice a day Duration: 10 Days Unchanged Enoxaparin 40 Milligram Subcutaneous Injection Twice a day Unchanged Ezetimibe (ezetimibe 10 mg oral tablet) Unchanged Gabapentin (gabapentin 300 mg oral capsule) 1 capsule Oral Twice a day Unchanged Insulin Glargine (Lantus Inj) 75 unit(s) Subcutaneous Injection Twice a day Unchanged Insulin Lispro (insulin lispro 100 u/ [...] 400 << Sliding Scale Comments >> ?? Unchanged Metoprolol (metoprolol succinate 50 mg oral capsule, extended release) 1 capsule Oral Daily STEMI (ST elevation myocardial infarction) start on ?? Unchanged Miscellaneous Rx (adaptic nonadherent dressing) See instructions place over left leg wound, apply triple antibiotic ointment and dressing daily ?? Unchanged Miscellaneous Rx (left leg prosthesis) See instructions Dx: left BKA, K3 ?? Unchanged Miscellaneous Rx (physical therapy) See instructions left BKA, gait and balance training using prosthesis ?? Unchanged Miscellaneous Rx (stump faucet polisher) See instructions Dx: left BKA ?? Medications and Immunizations Administered Medications Given During Visit No medications given during this visit.?? Allergies (NKA means No Known Allergies) vancomycin doxycycline??(Rash) Common Emergency Awareness Tips IS IT A [...] are strongly encouraged to quit. Please call [facility] at [phone] or [phone] (0325) or log in to [email or web address] for referrals to smoking cessation programs. ?? The National Suicide Prevention Hotline is available 14/03 if you or someone you know needs to find a reason to keep living. By calling 0-826-379-[facility] (9738) you'll be connected to a skilled, trained counselor at a crisis center in your area. [facility] Image Enhancement Portal You can view and manage your care through the patient portal or by using a health care mekhi of your choosing. [employer] is a website that allows you to securely view your medical information including your hospital discharge summary, office visit summaries, medications and follow-up visits. You can also request appointments, renew medications, and request access to your medical information using a health care mekhi of your choosing, or just ask a question. You can enroll at [email or web address] or register during your next office visit. [facility], in keeping with [facility] guidance, no longer requires face masks [...] medical provider or home test kit. ?? Disclaimer: The information provided is of a general nature and is intended to be used in conjunction with the recommendations and advice of your health care practitioner. Every effort has been made to ensure that the information provided is accurate and complete at the time it is provided to you however, as your needs change, or, as new information becomes available, different or additional instructions may be required. ?? If you have questions, please consult with your primary care provider or pharmacist, as appropriate. This information is not intended to serve as substitution for assessment and evaluation by a qualified health care provider. If you do not have a primary care provider, you may find a [facility] provider by calling [facility] at [phone]. Patient Care team information Care Team Personnel Name: Matilda Lowe RN Position: [facility] RN Member [...] Role: Lifetime Consulting Provider Address: Address: [address] [place] [address]- Name: Rosalba Ugalde RN Position: S RN Member Role: Primary Care Nurse Name: Juan Mondragon DO Position: [facility] Physician (General Medicine) Member Role: PCP Address: Address: [address] [place] [address]- Name: Eva Holguin RN Position: S RN Member Role: Primary Care Nurse Name: Federico Conroy RN Position: S RN Member Role: Primary Care Nurse Name: Flori Lilly RN Position: S RN Member Role: Primary Care Nurse Name: Joseline Malin RN Position: [facility] RN Member Role: Primary Care Nurse Name: Madeline Wren RN Position: S RN Member Role: Primary Care Nurse Name: Autumn Montgomery RN Position: S RN Member Role: Primary Care Nurse Name: Brittny Luna RN Position: S RN Member Role: Primary Care Nurse Care Team Related Persons Name: GABBIE KUO Address: home [address] [place] [address] Name: BRANDI KUO
--- OUTSIDE RECORDS SUMMARY | 2024-03-29 11:59 | XMS_ITS | Continuity of Care Document ---
Author Organization [facility] Address [address] [place] [address]- Care Team Providers Care Director Biology Name Role Phone Juan Mondragon DO Primary Care Physician [place] [facility] [place](s): 07/12/23 - 08/26/23 [facility] [address] [place] [address]- Attending Physician: Juan Mondragon DO Admitting Physician: Juan Mondragon DO Referring Physician: Roseann Davis MD Allergies, Adverse Reactions, Alerts Substance Reaction [...] Maintenance, 04/15/22 12:39:00 EDT,Route to Pharmacy Electronically, [facility], Partial fill upon patient [...] capsule, 0 Refills, Maintenance, 07/13/23 9:01:00EST, Capsule, [facility][id number], Partial fill upon patient request if the [...] Refills, Maintenance, 04/15/22 12:40:00 EDT, ER Capsule, [facility], Partial fill upon patient request if the prescription is for a schedule II opioid drug., 183, cm, . Start Date: 04/15/22 Status: Ordered Problem List [...] Team Personnel Name: Matilda Lowe RN Position: [facility] RN Member Role: Primary Care Nurse Name: Ghazal Ta RN Position: [facility] RN Member Role: Primary Care Nurse Name: Lima Bennett RN Position: [facility] RN Member Role: Primary Care Nurse Name: Karen Farias RN Position: S RN Member Role: Primary Care Nurse Name: Akil Zelaya RN Position: S RN Member Role: Primary Care Nurse Name: Agnes Mccann RN Position: S RN Member Role: Primary Care Nurse Name: Roseann Sullivan RN Position: S RN Member Role: Primary Care Nurse Name: Ebony Victoria NP Position: S Associate Professional Member Role: Lifetime Consulting Provider Address: Address: [address] [place] [id number] Name: Rosalba Ugalde RN Position: S RN Member Role: Primary Care Nurse Name: AlannaJuan gong DO Position: [facility] Physician (General Medicine) Member Role: PCP Address: Address: [address] [place] [id number] Name: Eva Holguin Position: S RN Member Role: Primary Care Nurse Name: Federico Conroy RN Position: [facility] RN Member Role: Primary Care Nurse Name: Flori Lilly RN Position: [facility] RN Member Role: Primary Care Nurse Name: Joseline Malin RN Position: [facility] RN Member Role: Primary Care Nurse Name: Madeline Wren RN Position: [facility] RN Member Role: Primary Care Nurse Name: Carmen Gates RN Position: [facility] RN Member Role: Primary Care Nurse Name: Autumn Montgomery RN Position: [facility] RN Member Role: Primary Care Nurse Name: Brittny Luna RN Position: [facility] RN Member Role: Primary Care Nurse Name: Selena Reeves RN Position: [facility] RN Member Role: Primary Care Nurse Care Team Related Persons Name: GABBIE KUO Address: home [address] [place] [id number] Name: BRANDI KUO
--- OUTSIDE RECORDS SUMMARY | 2024-03-29 11:59 | XMS_ITS | Continuity of Care Document ---
Author Organization [facility] Address [address] [place] [address]- Care Team Providers Care Cafeteria Director Name Role Phone Alanna MENDEZ Deirdrebaldo Christensen Primary Care Physician Encounter [facility] [place] Date(s): 09/22/23 - 10/22/23 [facility] [address] [place] [address]- Allergies, Adverse Reactions, Alerts Substance Reaction Severity [...] 04/15/22 12:39:00 EDT,Route to Pharmacy Electronically, [facility], Partial fill upon patient request [...] capsule, 0 Refills, Maintenance, 07/13/23 9:01:00EST, Capsule, [facility] #[id number], Partial fill upon patient request if the [...] Maintenance, 04/15/22 12:40:00 EDT, ER Capsule, [facility], Partial fill upon patient request if the prescription is for a schedule II opioid drug., 183, cm, ... Start Date: 04/15/22 Status: Ordered physical therapy physical therapy, See Instructions, # 1 each, Refills 0, Tot. Refills 0, Maintenance, left BKA, gait and balance training using prosthesis, 09/14/23 9:58:00 EST, Supply Start Date: 09/14/23 Status: Ordered stump deck builder stump deck builder, See Instructions, # 1 each, Refills 0, [...] Team Personnel Name: Matilda Lowe RN Position: [facility] RN Member Role: Primary Care Nurse Name: Ghazal Ta RN Position: S RN Member Role: Primary Care Nurse Name: Lima Bennett RN Position: [facility] RN Member Role: Primary Care Nurse Name: Karen Farias RN Position: S RN Member Role: Primary Care Nurse Name: Akil Zelaya RN Position: [facility] RN Member Role: Primary Care Nurse Name: Agnes Mccann RN Position: [facility] RN Member Role: Primary Care Nurse Name: Roseann Sullivan RN Position: [facility] RN Member Role: Primary Care Nurse Name: Ebony Victoria NP Position: [facility] Associate Professional Member Role: Lifetime Consulting Provider Address: Address: [address] [place] [id number] Name: Rosalba Ugalde RN Position: [facility] RN Member Role: Primary Care Nurse Name: Juan Mondragon DO Position: [facility] Physician (General Medicine) Member Role: PCP Address: Address: [address] [place] [id number] Name: Eva Holguin Position: [facility] RN Member Role: Primary Care Nurse Name: Federico Conroy RN Position: [facility] RN Member Role: Primary Care Nurse Name: Flori Lilly RN Position: [facility] RN Member Role: Primary Care Nurse Name: Joseline Mlain RN Position: [facility] RN Member Role: Primary Care Nurse Name: Madeline Wren RN Position: [facility] RN Member Role: Primary Care Nurse Name: Autumn Montgomery RN Position: [facility] RN Member Role: Primary Care Nurse Name: Brittny Luna RN Position: [facility] RN Member Role: Primary Care Nurse Name: Selena Reeves RN Position: [facility] RN Member Role: Primary Care Nurse Care Team Related Persons Name: GABBIE KUO Address: home [address] [place] [address] UM Name: BRANDI KUO
--- OUTSIDE RECORDS SUMMARY | 2024-03-29 11:59 | XMS_ITS | Continuity of Care Document ---
Author Organization [facility] Address [address] [place] [address]- Care Team Providers Care Lands Resource Manager Name Role Phone Juan Mondragon DO Primary Care Physician [place] [facility] [place]): 10/13/22 - 02/10/23 [facility] [address] [place] [address]- Attending Physician: Aristides DIALLO, Katherine Admitting Physician: Aristides DIALLO, Katherine Referring Physician: Juan Mondragon DO Allergies, Adverse [...] Maintenance, 04/15/22 12:39:00 EDT,Route to Pharmacy Electronically, [facility], Partial fill upon patient request if the prescription is for a schedule II opioid drug., 18... Start Date: 04/15/22 Status: Ordered atorvastatin 40 mg oral tablet 1 tablet = 40 mg, By Mouth, Daily at bedtime, please ask student development dean when to increase to 80mg dosegiven your recent transaminitis, # 90 tablet, 0 Refills, Maintenance, 04/15/22 12:39:00 EDT, Tablet, [facility], Partial fill upon patien... [...] Refills, Maintenance, 04/15/22 12:40:00 EDT, ER Capsule, [facility], Partial fill upon patient request if the prescription is for a schedule II opioid drug., 183, cm, ... Start Date: 04/15/22 Status: Ordered nystatin topical [id number] u/gm powder 1 application, Topically, 2 times a day, # 15 Gm, 0 Refills, Maintenance, 02/23/21 21:46:00 EDT, Powder, [facility] #[id number], Partial fill upon patient request if the prescription is for a schedule II opioid drug., 1 application Topically 2 ti... Start Date: 02/23/21 Status: Ordered Plavix 75 mg oral tablet 75 mg, 1, tablet, By Mouth, Daily, # 90 tablet, Refills 0, Tot. Refills 0, Maintenance, 04/15/22 12:39:00 EDT, Route to Pharmacy Electronically, [facility], Partial fill upon patient [...] Team Personnel Name: Ebony Victoria NP Position: [facility] Associate Professional Member Role: Lifetime Consulting Provider Address: Address: [address] [place] [address] Name: Juan Mondragon DO Position: [facility] Physician (General Medicine) Member Role: PCP Address: Address: [address] [place] [address] Name: Madeline Wren RN Position: [facility] RN Member Role: Primary Care Nurse Name: Safia Kilpatrick RN Position: [facility] RN Kulwant Member Role: Primary Care Nurse Care Team Related Persons Name: GABBIE KUO Address: home [address] [place] [address]
--- OUTSIDE RECORDS SUMMARY | 2024-03-29 11:59 | XMS_ITS | Continuity of Care Document ---
Author Organization [facility] Address [address] [place] [address]- Care Team Providers Care Manager Of Broadcast Content Name Role Phone Nate Mondragon DOchazbaldo Christensen Primary Care Physician [place] [facility] [place] 09/26/23 - 10/26/23 [facility] [address] [place] [address]- Allergies, Adverse Reactions, Alerts Substance Reaction Severity [...] Maintenance, 04/15/22 12:39:00 EDT,Route to Pharmacy Electronically, [facility], Partial fill upon patient [...] capsule, 0 Refills, Maintenance, 07/13/23 9:01:00EST, Capsule, [facility] #[id number], Partial fill upon patient request if the [...] Refills, Maintenance, 04/15/22 12:40:00 EDT, ER Capsule, [facility], Partial fill upon patient request if the prescription is for a schedule II opioid drug., 183, cm, ... Start Date: 04/15/22 Status: Ordered physical therapy physical therapy, See Instructions, # 1 each, Refills 0, Tot. Refills 0, Maintenance, left BKA, gait and balance training using prosthesis, 09/14/23 9:58:00 EST, Supply Start Date: 09/14/23 Status: Ordered stump experiential therapist stump experiential therapist, See Instructions, # 1 each, Refills 0, [...] Team Personnel Name: Matilda Lowe RN Position: [facility] RN Member Role: Primary Care Nurse Name: Ghazal Ta RN Position: S RN Member Role: Primary Care Nurse Name: Lima Bennett RN Position: [facility] RN Member Role: Primary Care Nurse Name: Karen Farias RN Position: S RN Member Role: Primary Care Nurse Name: Akil Zelaya RN Position: [facility] RN Member Role: Primary Care Nurse Name: Agnes Mccann RN Position: [facility] RN Member Role: Primary Care Nurse Name: Roseann Sullivan RN Position: [facility] RN Member Role: Primary Care Nurse Name: Ebony Victoria NP Position: [facility] Associate Professional Member Role: Lifetime Consulting Provider Address: Address: [address] [place] [id number] Name: Rosalba Ugalde RN Position: [facility] RN Member Role: Primary Care Nurse Name: Juan Mondragon DO Position: [facility] Physician (General Medicine) Member Role: PCP Address: Address: [address] [place] [id number] Name: Eva Holguin Position: [facility] RN Member Role: Primary Care Nurse Name: Federico Conroy RN Position: [facility] RN Member Role: Primary Care Nurse Name: Flori Lilly RN Position: [facility] RN Member Role: Primary Care Nurse Name: Joseline Malin RN Position: [facility] RN Member Role: Primary Care Nurse Name: Madeline Wren RN Position: [facility] RN Member Role: Primary Care Nurse Name: Autumn Montgomery RN Position: [facility] RN Member Role: Primary Care Nurse Name: Brittny Luna RN Position: [facility] RN Member Role: Primary Care Nurse Name: Selena Reeves RN Position: [facility] RN Member Role: Primary Care Nurse Care Team Related Persons Name: GABBIE KUO Address: [address] [place] [address] UM Name: BRANDI KUO
--- OUTSIDE RECORDS SUMMARY | 2024-03-29 11:59 | XMS_ITS | Continuity of Care Document ---
Author Organization [facility] ter Address [address] [place] [id number]- Care Team Providers Care Supply Chain Program Manager Name Role Phone Juan Mondragon DO Primary Care Physician Encounter [facility] Date(s): 10/27/23 - 10/27/[address] [address] Discharge Disposition: A-D/C Home Attending Physician: Jim Nelson MD Admitting Physician: Jim Nelson MD Referring Physician: Jim Nelson MD Allergies, Adverse Reactions, Alerts Substance Reaction [...] Maintenance, 04/15/22 12:39:00 EDT,Route to Pharmacy Electronically, [facility], Partial fill upon patient [...] capsule, 0 Refills, Maintenance, 07/13/23 9:01:00EST, Capsule, [id number], Partial fill upon patient request if the [...] Refills, Maintenance, 04/15/22 12:40:00 EDT, ER Capsule, [facility], Partial fill upon patient request if the prescription is for a schedule II opioid drug., 183, cm, .. Start Date: 04/15/22 Status: Ordered physical therapy physical therapy, See Instructions, # 1 each, Refills 0, Tot. Refills 0, Maintenance, left BKA, gait and balance training using prosthesis, 09/14/23 9:58:00 EST, Supply Start Date: 09/14/23 Status: Ordered stump education administrator stump education administrator, See Instructions, # 1 each, Refills 0, [...] Range]: 1 2 3 Height 183 cm (10/27/23 7:41 AM) Oxygen Saturation [94-100 %] 100 % (10/27/23 10:56 AM) 99 % (10/27/23 10:51 AM) 100 % (10/27/23 10:42 AM) Pulse Rate [55-90 bpm] 74 bpm (10/27/23 7:41 AM) Blood Pressure [90-138/55-84 mm Hg] 164/72mm Hg *H* (10/27/23 10:56 AM) 147/88mm Hg *H* (10/27/23 10:51 AM) 134/72mm Hg (10/27/23 10:42 AM) Respiratory Rate [16-30 br/min] 14 br/min *L* (10/27/23 10:56 AM) 16 br/min (10/27/23 10:51 AM) 14 br/min *L* (10/27/23 10:42 AM) Temperature [96.8-100.4 DegF] 97.1 DegF (10/27/23 10:07 AM) 97.4 DegF (10/27/23 7:41 AM) Liters per Minute 2 L/min (10/27/23 10:51 AM) 4 L/min (10/27/23 10:42 AM) 4 L/min (10/27/23 10:37 AM) Mode of Delivery (Oxygen) Room air (10/27/23 10:56 AM) Simple face mask (10/27/23 10:51 AM) Simple face mask (10/27/23 10:42 AM) Blood pressure sites Arm, left (10/27/23 10:56 AM) Arm, left (10/27/23 10:51 AM) Arm, left (10/27/23 10:42 AM) Temperature Route Temporal (10/27/23 10:07 AM) Temporal (10/27/23 7:41 AM) Dry Weight 138.4 kg (10/27/23 7:41 AM) Dry Weight Obtained Via Patient/family s tated (10/27/23 7:41 AM) Social History Social History Type Response Tobacco Use: pt denies. Sex Note * Maco Todd RN: PERFORM Event Display: Discharge/Transfer Note Hospital Authored Date: [id number] Nursing Discharge Note Entered On: 10/27/2023 10:14 EST Performed On: 10/27/2023 10:14 EST by Maco Todd RN Nursing Discharge Note 2 Discharge Time : 10/27/2023 11:14 EST Maco Todd RN - 10/27/2023 11:16 EST Discharge Level of Care at Discharge : Home/Care Home/Foster Care Patient Left Unit Via : Wheelchair Patient Accompanied Off Unit with : Responsible adult DC Instructions Provided & Signed by Pt : Yes Patient Understands D/C Instructions : Yes Patient Instructions Discharge Signed : Yes Did Pt have Specialty Bed or Wound Vac : No Maco Todd RN - 10/27/2023 10:14 EST * Maco Todd RN: PERFORM Event Display: Patient Education/Instruction Authored Date: [id number] Surgery Adult Discharge Instructions [place] [id number] Name: MARINO KUO : 1975?? Visit: 10/27/2023 07:21?? Current Date: 10/27/2023 10:14 ?? Account: [id number]?? Surgery Discharge Instructions We would like to thank [...] and their families. Surveys are administered by [employer] ?? If further treatment with your primary care physician or another doctor is recommended, it is important for you to keep the appointment. Call your primary care physician or return to the Emergency Department immediately if your condition worsens, fails to improve, or new symptoms develop. If you need to find a doctor, you can call [facility] for a referral at [phone] or toll free at [phone] ([phone]) or log in to [email or web address].. ?? [facility], in keeping with [facility] guidance, no longer requires face masks [...] a health care mekhi of your choosing. [employer] is a website that allows you to securely view your medical information including your hospital discharge summary, office visit summaries, medications and follow-up visits. You can also request appointments, renew medications, and request access to your medical information using a health care mekhi of your choosing, or just ask a question. You are entitled to know the individuals who participated in your treatment. This information is available within your medical record and will be provided upon your request. You can enroll at [email or web address] or register d uring your next office visit. You have been discharged from [facility], Patient Care Unit: ENDO??. If you have any questions regarding these instructions after you leave, please call us and we will be happy to assist you. [facility] Your Care Team Attending Physician Jim Nelson MD?? Consulting Providers Gordon Foster MD?? Discharging Providers Jim Nelson MD Reason for Admission COLON CANCER SCREEN Primary Care Provider Alanna MENDEZ, Juan Christensen? Advance Directive Health Care Proxy on File Yes - Health Care Proxy What to do next Instructions From Your Doctor ?? Orders? 8:04:00 EST, ??Per Daystay Protocol?? You Need to Schedule the Following Appointments Follow Up with??As Needed Follow Up with??Juan Mondragon When:??In 0 days Discharge Medications TIMANTONIMARINO BARRIOS :1975 Visit Date:10/27/2023 Medications: Please continue your medications until treatment is completed or stopped by your provider. You may resume your daily prescription medications. Discuss any questions related to medications with your provider. What How Much When Why Instructions Next Dose Unchanged Acetaminophen (acetaminophen 325 mg oral tablet) [...] Milligram Subcutaneous Injection Twice a day Unchanged Gabapentin (gabapentin 300 mg oral capsule) [...] using prosthesis ?? Unchanged Miscellaneous Rx (stump education administrator) See instructions Dx: left BKA ?? Allergies (NKA means No Known Allergies) vancomycin doxycycline??(Rash) Education Materials Below is the list of Educational Leaflet Providered with your Discharge Instructions. WebMD Ignite Patient Education - Hemorrhoids Discharge Instructions?? Web[employer] Ignite Patient Education - Colon Polypectomy Discharge Instructions?? Web[employer] Ignite Patient Education - Surgery Medical Daystay Surgical Overnight Discharge Instructions?? Valuables and Belongings I fully understand and agree that [facility] accepts no responsibility for all my personal [...] to send valuables and belongings home. ?? Date for Pt to Sign Valuables/Belongings: 10/27/23 07:41:00 ?? Valuables & Belongings ?? Clothes Electronic devices Jewelry Monetary Items Personal devices Miscellaneous Medications (Valuables) Valuables at Bedside Pants, Shirt, Shoes, Undergarments ? Wheelchair ? Valuables Sent Home ? Valuables Sent to Security ? Other Discharge Information ? Case Management Discharge Plan?? Discharge Plan?? Discharge Level of Care at Discharge: Home/Care Home/Foster Care ?? Pulmonary Rehab Status?? Pulmonary Rehab Discharge Status?? Respiratory Rate: 20 br/min ? Common Emergency Awareness Tips IS [...] are strongly encouraged to quit. Please call [facility] Link at [phone] or [phone] [phone] ([phone]) or log in to [email or web address] for referrals to smoking cessation programs. ?? The National Suicide Prevention Hotline is available 14/03 if you or someone you know needs to find a reason to keep living. By calling 9-921-180-Yamli ([phone]) you'll be connected to a skilled, trained counselor at a crisis center in your area. SURGERY DISCHARGE INSTRUCTIONS SIGNATURE PAGE MARINO KUO Location:[facility] Registration Date and Time:10/27/2023 07:21 EST Primary Care Physician: Juan Mondragon DO, Attending Physician: Jim Nelson MD, I MARINO KUO, have received the above patient education materials/instructions and have verbalized understanding. If ambulance or transport services are being used I further acknowledge being given a choice of service. ?? If you need to contact me, please call me at this number: . Patient/Disease Control Inspector Name: Patient/Disease Control Inspector Signature: Relationship to Patient: Witness Name/Signature: Date: * Maco Todd RN: PERFORM, SIGN, VERIFY Event Display: Patient Education Handout Authored Date: * Maco Todd RN: PERFORM Event Display: Patient Education Leaflets Authored Date: Hemorrhoids Discharge Instructions ?? 672 ??Hemorrhoids Discharge Instructions ??You must carefully read the Consumer Information Use and Disclaimer below in order to understand and correctly use this information?? About this topic Hemorrhoids are swollen veins in the rectum. Your rectum is where stool leaves your body. You may be able to see or feel your hemorrhoids outside of your body, but some hemorrhoids are inside of yourrectum and cannot be seen. Hemorrhoids can cause itching, pain, and bleeding. Being constipated or having hard stools can make your hemorrhoids worse.?? What care is needed at home? Ask your doctor what you need to do when you go home. Make sure??you ask questions if you do not understand what the doctor says. This??way you will know what you need to do. ??? Soak your bottomin a few inches of warm water for 10 to 15 minutes??at a time. You can do this 2 to 3 times each day. Do not add soap,??bubble bath, or anything to the water. ??? Use ufao-zvf-hoohhcu medicines to treat your hemorrhoids. These??include ointments and creams to help with pain and swelling. You can??also use a product like witch jensen to help dry out the skin in the area. ??? To help with constipation: ??? Use stool softeners when needed. ??? Eat high-fiber foods. These include whole grains, fruits, and??vegetables. ??? Drink plenty of water and other fluids each day. This helps to??keep your stools soft. ??? Set a regular schedule to try and have a bowel movement. Do??not ignore the urge to go to the bathroom. Don???t hold it in. ??? Give yourself plenty of time to have a bowel movement, but do not linger on the toilet either, by sitting and reading for a long time. ??? Do mild exercise each day like taking a walk. ??? Avoid heavy lifting or straining while the hemorrhoid is healing. ?? What follow-up care is needed? If your problem does not get better, other care may be needed. Your doctor may ask you to make visits to the office to check on your progress. Be sure to keep these visits.?? What drugs may be needed? The doctor may order drugs to: ??? Help with pain and swelling ??? Ease itching ??? Soften stools ?? Will physical activity be limited? Working out can help with digestion. It might help keep you from having hard stools. Ask your doctor about the best kind of exercise for you. ?? What problems could happen? You may have very bad bleeding. ??? Sometimes, treatments do not work. Some hemorrhoids are very??large. You might need surgery for either of these. ?? When do I need to call the doctor? You have a lot of bleeding from your rectum. ??? Your bowel movement looks like tar. ??? You are not able to pass stool because of pain from your??hemorrhoids. ??? Your pain gets worse and is nothelped by wwen-hwz-hcitpps??medicines, warm water, or your home care. ??? You have a fever of 100.4??F (38??C) or higher. ?? Teach Back: Helping You Understand The Teach Back Method helps you understand the information we are giving you. After you talk with the staff, tell them in your own words what you learned. This helps to make sure the staff has described each thing clearly. It also helps to explain things that may have been confusing. Before going home, make sure you can do these: ??? I can tell you about my condition. ??? I can tell you what may help ease my pain. ??? I can tell you what I will do if I have blood in my rectum. Where can I learn more?[employer]https://familydoctor.or g/condition/hemorrhoids/National Digestive Disease Information Clearinghousehttps://www.niddk.nih.go v/health-information/digestive-diseases/hemorrhoids/definition-factsLast Reviewed Wefb3366-83-22Leppfoku Information Use and Disclaimer:This generalized information is a limited summary of diagnosis,treatment, and/or medication information. It is not meant to be comprehensive and should be used asa tool to help the user understand and/or assess potential diagnostic and treatment options. It does NOT include all information about conditions, treatments, medications, side effects, or risks thatmay apply to a specific patient. It is not intended to be medical advice or a substitute for the medical advice, diagnosis, or treatment of a health care provider based on the health care provider's examination and assessment of a patient???s specific and unique circumstances. Patients must speak with a health care provider for complete information about their health, medical questions, and treatment options, including any risks or benefits regarding use of medications. This information does not endorse any treatments or medications as safe, effective, or approved for treating a specific patient. [employer] and its affiliates disclaim any warranty or liability relating to this information or the use thereof. The use of this information is governed by the Terms of Use, available at??htt ps://www.[employer].TraderTools/en/know/bldwudic-regldbmfihilc-kiborIobt Updated 10/14/21? * Maco Todd RN: PERFORM Event Display: Patient Education Leaflets Authored Date: [id number] Colon Polypectomy Discharge Instructions ?? 682 ?? Colon Polypectomy Discharge Instructions ??You must carefully read the Consumer Information Use and Disclaimer below in order to understand and correctly use this information??About this topicThe colon is also called the large intestine. It is a long, hollow tube at the end of your digestive tract. It absorbs water from solid waste and changes it from liquid to a solid bowel movement.??A colon polyp is a growth of extra tissue that is not normally in your colon. Colon polyps do not often cause any signs. Most colon polyps are not cancer, but some polyps may turn into cancer. The doctor takes the polyps out during a procedure called a colonoscopy and sends them to the lab for a check to make sure there is no cancer.??You may have a colon polyp or multiple polyps removed. The doctor will send them to the lab to see what type they are. If a polyp is very large, it may need to be removed by surgery.??What care is needed at home? Ask your doctor what you need to do when you go home. Make sure??you ask questions if you do not understand what the doctor says. ??? Do not drive for 24 hours after a colonoscopy. ??? Take your drugs as ordered by your doctor. ??? Go back to your normaldiet unless your doctor has told you to make? some changes in your diet. ??? Rest ??What follow-up care is needed? Your doctor may ask you to make visits to the office to check on your??progress. Be sure to keep these visits. ??? Your doctor may suggest you get tested regularly. People with colon??polyps need to have a colonoscopy regularly to check for the growth??of new polyps. ??? Some polyps may not be removed, and more surgery may be needed. ??? The results of the polyp testing will be given to you at one of these??visits. ??What drugs may be needed?The doctor may order drugs to: ??? Prevent hard stools ??? Help with pain ??? Reduce your risk of colon polyps or colon cancer ??Will physical activity be limited?You may feel sleepy after the colonoscopy. Try to get some rest.??What can be done to prevent this health problem? Have regular colonoscopies.? Eat foods high in fiber. ??? Eat foods low in fat. ??? Limit your intake of beer, wine, and mixed drinks (alcohol). ??? Ask your doctor or dietitian for a diet that is right for you. Include??calcium in your diet. Good sources of calcium include milk, cheese,??and yogurt. ??When do I need to call the doctor? Signs of infection. These include a fever of 100.4??F (38??C) or higher,??chills, and anal itching or pain. ??? Bleeding from rectum that gets worse? Belly becomes swollen and sore ??? Upset stomach and throwing up continues after you return home ??? Not being able to move your bowels ??? Weight loss without trying ??? Blood in your stool ??Teach Back: Helping You UnderstandThe Teach Back Method helps you understand the information we are giving you. After you talk with the staff, tell them in your own words what you learned. This helps to make sure the staff has described each thing clearly. It also helps to explain things that mayhave been confusing. Before going home, make sure you can do these:? I can tell you about my co ndition. ??? I can tell you what changes I need to make with my diet. ??? I can tell you what I will do if my stomach is swollen, I have belly pain,??or there is blood in my stool. ??Where can I learn more?BetterHealthhttps://www.betterhealth.av.gov.au/health/ConditionsAndTreatme nts/colonoscopyNHSh ttps://www.nhs.uk/conditions/bowel-polyps/UpToDatehttps://www.Zoove/adebayo nts/sbgfc-iwcoyg-wcojib-the-basics??Last Reviewed Onto9134-51-68Xtmopuwg Information Use and Disclaimer:This generalized information is a limited summary of diagnosis, treatment, and/or medication information. It is notmeant to be comprehensive and should be used as a tool to help the user understand and/or assess potential diagnostic and treatment options. It does NOT include all information about conditions, treatments, medications, side effects, or risks that may apply to a specific patient. It is not intendedto be medical advice or a substitute for the medical advice, diagnosis, or treatment of a health care provider based on the health care provider's examination and assessment of a patient???s specificand unique circumstances. Patients must speak with a health care provider for complete information about their health, medical questions, and treatment options, including any risks or benefits regarding use of medications. This information does not endorse any treatments or medications as safe, effective, or approved for treating a specific patient. [employer]. and its affiliates disclaim any warranty or liability relating to this information or the use thereof. The use of this information is governed by the Terms of Use, available at??https://www.[employer].com/en/know/clinical-effectiveness- termsLast Updated 10/14/21? * Maco Todd RN: PERFORM Event Display: Patient Education Leaflets Authored Date: [id number] Surgery Medical Daystay Surgical Overnight Discharge Instructions ?? 295 Medical Daystay/Surgical Overnight Discharge Instructions ? Since your coordination and judgment may be altered by medication and/or anesthesia, a responsible adult must drive you home from the hospital. ? If you have received medication for pain or sedation while under our care, you should not drive, operate machinery, drink alcohol, or sign any legal documents for 24 hours.?? You should have someone with you at home tonight. ? Remain at home the day of discharge.?? You may be up and about unless otherwise instructed by your physician. ? You may resume your daily prescription medication schedule.?? Any depressant medication should be avoided for 24 hours unless otherwise instructed by your surgeon or anesthesiologist. ? Call your physician for a follow-up appointment.? If you experience unusual or severe pain not relied by your pain medication, excessive bleedingor drainage, persistent nausea and vomiting, excessive swelling or redness, foul odor from incisionsite or fever over 100.6F, you need to call your physician. ? A follow-up phone call by a nurse will be made the day after your procedure.?? If you have stayed with us over night, you will not be receiving a follow-up phone call. ? Nausea and vomiting are a common side effect of prescription pain medication.?? We recommend that pills are not taken on an empty stomach.?? While taking any prescription pain medication you should not drive or drink alcohol. ? Patient Care team information Care Team Personnel Name: Matilda Lowe RN Position: [facility] RN Member Role: Primary Care Nurse Name: Ghazal Ta RN Position: [facility] RN Member Role: Primary Care Nurse Name: Lima Bennett RN Position: [facility] RN Member Role: Primary Care Nurse Name: Karen Farias RN Position: [facility] RN Member Role: Primary Care Nurse Name: Akil Zelaya RN Position: [facility] RN Member Role: Primary Care Nurse Name: Agnes Mccann RN Position: [facility] RN Member Role: Primary Care Nurse Name: Roseann Sullivan RN Position: [facility] RN Member Role: Primary Care Nurse Name: Ebony Victoria NP Position: [facility] Associate Professional Member Role: Lifetime Consulting Provider Address: Address: [address] [place] [id number]- Name: Rosalba Ugalde RN Position: [facility] RN Member Role: Primary Care Nurse Name: Juan Mondragon DO Position: [facility] Physician (General Medicine) Member Role: PCP Address: Address: [address] [place] [id number] Name: Eva Holguin Position: S RN Member Role: Primary Care Nurse Name: Federico Conroy RN Position: S RN Member Role: Primary Care Nurse Name: Flori Lilly RN Position: S RN Member Role: Primary Care Nurse Name: Joseline Malin RN Position: [facility] RN Member Role: Primary Care Nurse Name: Madeline Wren RN Position: [facility] RN Member Role: Primary Care Nurse Name: Autumn Montgomery RN Position: [facility] RN Member Role: Primary Care Nurse Name: Brittny Luna RN Position: [facility] RN Member Role: Primary Care Nurse Name: Selena Reeves RN Position: [facility] RN Member Role: Primary Care Nurse Care Team Related Persons Name: GABBIE KUO Address: [address] Name: BRANDI KUO
--- OUTSIDE RECORDS SUMMARY | 2024-03-29 12:00 | XMS_ITS | Continuity of Care Document ---
Author Organization [facility] Address [address] [place] [address] [address] [place] [address]- Care Team Providers Care Railroad Conductor Name Role Phone Juan Mondragon DO Primary Care Physician [facility]counter [facility] Date(s): 08/24/22 - 10/14/[address] [place] [address]- Attending Physician: Rudi Higginbotham MD Referring Physician: Juan Mondragon DO Allergies, [...] Maintenance, 04/15/22 12:39:00 EDT,Route to Pharmacy Electronically, [facility], Partial fill upon patient request if the prescription is for a schedule II opioid drug., 18... Start Date: 04/15/22 Status: Ordered atorvastatin 40 mg oral tablet 1 tablet = 40 mg, By Mouth, Daily at bedtime, please ask sound engineer audio control when to increase to 80mg dosegiven your recent transaminitis, # 90 tablet, 0 Refills, Maintenance, 04/15/22 12:39:00 EDT, Tablet, [facility], Partial fill upon patien... [...] Refills, Maintenance, 04/15/22 12:40:00 EDT, ER Capsule, [facility], Partial fill upon patient request if the prescription is for a schedule II opioid drug., 183, cm, 08... Start Date: 04/15/22 Status: Ordered nystatin topical 732335 u/gm powder 1 application, Topically, 2 times a day, # 15 Gm, 0 Refills, Maintenance, 02/23/21 21:46:00 EDT, Powder, [facility][id number], Partial fill upon patient request if the prescription is for a schedule II opioid drug., 1 application Topically 2 ti... Start Date: 02/23/21 Status: Ordered Plavix 75 mg oral tablet 75 mg, 1, tablet, By Mouth, Daily, # 90 tablet, Refills 0, Tot. Refills 0, Maintenance, 04/15/22 12:39:00 EDT, Route to Pharmacy Electronically, [facility], Partial fill upon patient [...] Member Role: Lifetime Consulting Provider Address: Address: [address] [place] [address]- Name: Dario Lopez RN Position: S RN Supv Member Role: Primary Care Nurse Name: Juan Mondragon DO Position: [facility] Physician (General Medicine) Member Role: PCP Address: Address: [address] [place] [id number] Name: Madeline Wren RN Position: S RN Member Role: Primary Care Nurse Name: Safia Kilpatrick RN Position: S RN Supv Member Role: Primary Care Nurse Care Team Related Persons Name: GABBIE KUO Address: home [address] [place] [phone] UM
--- OUTSIDE RECORDS SUMMARY | 2024-03-29 12:00 | XMS_ITS | Continuity of Care Document ---
Author Organization [facility] Address [address] [place] [address] [address] [place] [address]- Care Team Providers Care Master Machinist Name Role Phone Juan Mondragon DO Primary Care Physician [facility] Date(s): 08/02/22 - 09/01/[address] [place], [place] [address] Allergies, Adverse Reactions, Alerts Substance Reaction Severity [...] Maintenance, 04/15/22 12:39:00 EDT,Route to Pharmacy Electronically, [facility], Partial fill upon patient request if the prescription is for a schedule II opioid drug., 18... Start Date: 04/15/22 Status: Ordered atorvastatin 40 mg oral tablet 1 tablet = 40 mg, By Mouth, Daily at bedtime, please ask supervisor of communications when to increase to 80mg dosegiven your recent transaminitis, # 90 tablet, 0 Refills, Maintenance, 04/15/22 12:39:00 EDT, Tablet, [facility], Partial fill upon patien... Start Date: [...] Refills, Maintenance, 04/15/22 12:40:00 EDT, ER Capsule, [facility], Partial fill upon patient request if the prescription is for a schedule II opioid drug., 183, cm, ... Start Date: 04/15/22 Status: Ordered nystatin topical 195589 u/gm powder 1 application, Topically, 2 times a day, # 15 Gm, 0 Refills, Maintenance, 02/23/21 21:46:00 EDT, Powder, [facility] #[id number], Partial fill upon patient request if the prescription is for a schedule II opioid drug., 1 application Topically 2 ti... Start Date: 02/23/21 Status: Ordered Plavix 75 mg oral tablet 75 mg, 1, tablet, By Mouth, Daily, # 90 tablet, Refills 0, Tot. Refills 0, Maintenance, 04/15/22 12:39:00 EDT, Route to Pharmacy Electronically, [facility], Partial fill upon patient [...] Team Personnel Name: Radha Amador RN Position: [facility] RN Member Role: Primary Care Nurse Name: Annmarie Winn RN Position: [facility] RN Member Role: Primary Care Nurse Name: Ebony Victoria NP Position: [facility] Associate Professional Member Role: Lifetime Consulting Provider Address: Address: [address] [place] [id number] Name: Dario Lopez RN Position: [facility] RN Supv Member Role: Primary Care Nurse Name: Juan Mondragon DO Position: [facility] Physician (General Medicine) Member Role: PCP Address: Address: [address] [place] [id number] Name: Madeline Wren RN Position: S RN Member Role: Primary Care Nurse Name: Safia Kilpatrick RN Position: [facility] RN Supv Member Role: Primary Care Nurse Care Team Related Persons Name: GABBIE KUO Address: home [address] [place] [address] UM
--- OUTSIDE RECORDS SUMMARY | 2024-03-29 12:00 | XMS_ITS | Continuity of Care Document ---
Author Organization [facility] Address [address] [place] [address] [address] [place] [address]- Care Team Providers Care Parlor Chaperone Name Role Phone Alanna Juan MENDEZ Primary Care Physician [facility] Date(s): 09/14/22 - 10/14/22 [facility] [address] [place], [place] [address] Attending Physician: Deb Barber Admitting Physician: AdmDeb lopez Referring Physician: AdmtrDeb Allergies, Adverse Reactions, Alerts Substance Reaction Severity [...] Maintenance, 04/15/22 12:39:00 EDT,Route to Pharmacy Electronically, [facility], Partial fill upon patient request if the prescription is for a schedule II opioid drug., 18... Start Date: 04/15/22 Status: Ordered atorvastatin 40 mg oral tablet 1 tablet = 40 mg, By Mouth, Daily at bedtime, please ask supervisor marble when to increase to 80mg dosegiven your recent transaminitis, # 90 tablet, 0 Refills, Maintenance, 04/15/22 12:39:00 EDT, Tablet, [facility], Partial fill upon patien... Start [...] Refills, Maintenance, 04/15/22 12:40:00 EDT, ER Capsule, [facility], Partial fill upon patient request if the prescription is for a schedule II opioid drug., 183, cm, ... Start Date: 04/15/22 Status: Ordered nystatin topical 670360 u/gm powder 1 application, Topically, 2 times a day, # 15 Gm, 0 Refills, Maintenance, 02/23/21 21:46:00 EDT, Powder, [facility][id number], Partial fill upon patient request if the prescription is for a schedule II opioid drug., 1 application Topically 2 ti... Start Date: 02/23/21 Status: Ordered Plavix 75 mg oral tablet 75 mg, 1, tablet, By Mouth, Daily, # 90 tablet, Refills 0, Tot. Refills 0, Maintenance, 04/15/22 12:39:00 EDT, Route to Pharmacy Electronically, [facility], Partial fill upon patient request [...] Team Personnel Name: Radha Amador RN Position: [facility] RN Member Role: Primary Care Nurse Name: Ebony Victoria NP Position: [facility] Associate Professional Member Role: Lifetime Consulting Provider Address: Address: [address] [place] [address]- Name: Dario Lopez RN Position: S RN Supv Member Role: Primary Care Nurse Name: Juan Mondragon DO Position: [facility] Physician (General Medicine) Member Role: PCP Address: Address: [address] [place] [address] [facility] [address] Name: Madeline Wren RN Position: S RN Member Role: Primary Care Nurse Name: Safia Kilpatrick RN Position: S RN Supv Member Role: Primary Care Nurse Care Team Related Persons Name: GABBIE KUO Address: home [address] [place] [address] UM
--- OUTSIDE RECORDS SUMMARY | 2024-03-29 12:00 | XMS_ITS | Continuity of Care Document ---
Author Organization [facility] Address [address] [place] [address]- Care Team Providers Care Theatrical Variety Agent Name Role Phone Alanna MENDEZJuan Amparo Primary Care Physician Encounter [facility] Date(s): 08/02/23 - 09/01/23 [facility] [address] [place] [address]- Allergies, Adverse Reactions, Alerts Substance Reaction Severity [...] Maintenance, 04/15/22 12:39:00 EDT,Route to Pharmacy Electronically, [facility], Partial fill upon patient [...] capsule, 0 Refills, Maintenance, 07/13/23 9:01:00EST, Capsule, [facility] #[id number], Partial fill upon patient request if the [...] Refills, Maintenance, 04/15/22 12:40:00 EDT, ER Capsule, [facility], Partial fill upon patient request if the prescription is for a schedule II opioid drug., 183, cm, .. Start Date: 04/15/22 Status: Ordered stump communications technologist stump communications technologist, See Instructions, # 1 each, Refills 0, [...] Team Personnel Name: Matilda Lowe RN Position: [facility] RN Member Role: Primary Care Nurse Name: Ghazal Ta RN Position: [facility] RN Member Role: Primary Care Nurse Name: [...] Member Role: Lifetime Consulting Provider Address: Address: [address] [place] [address]- Name: Rosalba Ugalde RN Position: S RN Member Role: Primary Care Nurse Name: Juan Mondragon DO Position: [facility] Physician (General Medicine) Member Role: PCP Address: Address: [address] [place] [address]- Name: Eva Holguin Position: S RN Member Role: Primary Care Nurse Name: Federico Conroy RN Position: [facility] RN Member Role: Primary Care Nurse Name: Flori Lilly RN Position: [facility] RN Member Role: Primary Care Nurse Name: Joseline Malin RN Position: [facility] RN Member Role: Primary Care Nurse Name: Madeline Wren RN Position: [facility] RN Member Role: Primary Care Nurse Name: Carmen Gates RN Position: [facility] RN Member Role: Primary Care Nurse Name: Autumn Montgomery RN Position: [facility] RN Member Role: Primary Care Nurse Name: Brittny Luna RN Position: S RN Member Role: Primary Care Nurse Name: Selena Reeves RN Position: [facility] RN Member Role: Primary Care Nurse Care Team Related Persons Name: GABBIE KUO Address: home [address] [place] [address] Name: BRANDI KUO
--- OUTSIDE RECORDS SUMMARY | 2024-03-29 12:00 | XMS_ITS | Continuity of Care Document ---
Author Organization [facility] Address [address] [place] [address]- Care Team Providers Care Assembler Installer General Name Role Phone Alanna MENDEZJuan Primary Care Physician ( [phone] Encounter [facility] Date(s): 04/29/22 - 10/15/[address] [address]- Encounter Diagnosis ST elevation (STEMI) myocardial infarction of unspecified site(Final) - Discharge Disposition: A-D/C Home Attending Physician: Amando Segura MD Admitting Physician: Amando Segura MD Referring Physician: Amando Segura MD Allergies, Adverse Reactions, Alerts Substance Reaction [...] Maintenance, 04/15/22 12:39:00 EDT,Route to Pharmacy Electronically, [facility], Partial fill upon patient request if the prescription is for a schedule II opioid drug., 18... Start Date: 04/15/22 Status: Ordered atorvastatin 40 mg oral tablet 1 tablet = 40 mg, By Mouth, Daily at bedtime, please ask meat smoker when to increase to 80mg dosegiven your recent transaminitis, # 90 tablet, 0 Refills, Maintenance, 04/15/22 12:39:00 EDT, Tablet, [facility], Partial fill upon patien... Start [...] Refills, Maintenance, 04/15/22 12:40:00 EDT, ER Capsule, [facility], Partial fill upon patient request if the prescription is for a schedule II opioid drug., 183, cm, 08... Start Date: 04/15/22 Status: Ordered nystatin topical 946015 u/gm powder 1 application, Topically, 2 times a day, # 15 Gm, 0 Refills, Maintenance, 02/23/21 21:46:00 EDT, Powder, [facility] #[id number], Partial fill upon patient request if the prescription is for a schedule II opioid drug., 1 application Topically 2 ti... Start Date: 02/23/21 Status: Ordered Plavix 75 mg oral tablet 75 mg, 1, tablet, By Mouth, Daily, # 90 tablet, Refills 0, Tot. Refills 0, Maintenance, 04/15/22 12:39:00 EDT, Route to Pharmacy Electronically, [facility], Partial fill upon [...] 100 in lifetime) entered on: 06/23/20 Sex Note * Event Display: Cardiac Rehab Telemetry Report Authored Date: * Event Display: Cardiac Rehab Telemetry Report Authored Date: * Event Display: Cardiac Rehab Telemetry Report Authored Date: Patient Care team information Care Team Personnel Name: Radha Amador RN Position: S RN Member Role: Primary Care Nurse Name: Ebony Victoria NP Position: [facility] Associate Professional Member Role: Lifetime Consulting Provider Address: Address: [address] [place] [address]- Name: Dario Lopez RN Position: S RN Supv Member Role: Primary Care Nurse Name: Juan Mondragon DO Position: [facility] Physician (General Medicine) Member Role: PCP Address: Address: [address] [place] [address]- Name: Madeline Wren RN Position: S RN Member Role: Primary Care Nurse Name: Safia Kilpatrick RN Position: S RN Supv Member Role: Primary Care Nurse Care Team Related Persons Name: SHIELA GABBIE Address: home [address] [place] [address] UM
--- OUTSIDE RECORDS SUMMARY | 2024-03-29 12:00 | XMS_ITS | Continuity of Care Document ---
Author Organization [facility] Address [address] [place], [place] [address] ve [address] [place] [address]- Care Team Providers Care Slubber Operator Name Role Phone Juan Mondragon DO Primary Care Physician Encounter [facility] Date(s): 08/20/22 - 09/23/[address] [place] [address]- Attending Physician: Jael Lamb Referring Physician: Juan Mondragon DO Allergies, Adverse [...] Maintenance, 04/15/22 12:39:00 EDT,Route to Pharmacy Electronically, [facility], Partial fill upon patient request if the prescription is for a schedule II opioid drug., 18... Start Date: 04/15/22 Status: Ordered atorvastatin 40 mg oral tablet 1 tablet = 40 mg, By Mouth, Daily at bedtime, please ask disk sander when to increase to 80mg dosegiven your recent transaminitis, # 90 tablet, 0 Refills, Maintenance, 04/15/22 12:39:00 EDT, Tablet, [facility], Partial fill upon patien... [...] Refills, Maintenance, 04/15/22 12:40:00 EDT, ER Capsule, [facility], Partial fill upon patient request if the prescription is for a schedule II opioid drug., 183, cm, ... Start Date: 04/15/22 Status: Ordered nystatin topical 712998 u/gm powder 1 application, Topically, 2 times a day, # 15 Gm, 0 Refills, Maintenance, 02/23/21 21:46:00 EDT, Powder, [facility] #[id number], Partial fill upon patient request if the prescription is for a schedule II opioid drug., 1 application Topically 2 ti... Start Date: 02/23/21 Status: Ordered Plavix 75 mg oral tablet 75 mg, 1, tablet, By Mouth, Daily, # 90 tablet, Refills 0, Tot. Refills 0, Maintenance, 04/15/22 12:39:00 EDT, Route to Pharmacy Electronically, [facility], Partial fill upon patient [...] Care Nurse Name: Ebony Victoria NP Position: [facility] Associate Professional Member Role: Lifetime Consulting Provider Address: Address: [address] [place] [id number] Name: Dario Lopez RN Position: S RN Supv Member Role: Primary Care Nurse Name: Juan Mondragon DO Position: [facility] Physician (General Medicine) Member Role: PCP Address: Address: [address] [place] [address] [facility] [place], [place] [address] Name: Madeline Wren RN Position: S RN Member Role: Primary Care Nurse Name: Safia Kilpatrick RN Position: S RN Supv Member Role: Primary Care Nurse Care Team Related Persons Name: GABBIE KUO Address: home [address] [place] [address] UM
--- OUTSIDE RECORDS SUMMARY | 2024-03-29 12:00 | XMS_ITS | Continuity of Care Document ---
Author Organization [facility] Address [address] [place] [address]- Care Team Providers Care Master Chef Name Role Phone Alanna MENDEZ Deirdrebaldo Christensen Primary Care Physician Encounter [facility] Date(s): 10/11/23 - 11/10/23 [facility] [address] [place] [address]- Allergies, Adverse Reactions, Alerts Substance Reaction Severity [...] Maintenance, 04/15/22 12:39:00 EDT,Route to Pharmacy Electronically, [facility], Partial fill upon patient request [...] capsule, 0 Refills, Maintenance, 07/13/23 9:01:00EST, Capsule, [facility] #[id number], Partial fill upon patient request if the [...] Refills, Maintenance, 04/15/22 12:40:00 EDT, ER Capsule, [facility], Partial fill upon patient request if the prescription is for a schedule II opioid drug., 183, cm, ... Start Date: 04/15/22 Status: Ordered physical therapy physical therapy, See Instructions, # 1 each, Refills 0, Tot. Refills 0, Maintenance, left BKA, gait and balance training using prosthesis, 09/14/23 9:58:00 EST, Supply Start Date: 09/14/23 Status: Ordered stump file clerk stump file clerk, See Instructions, # 1 each, Refills 0, [...] Team Personnel Name: Matilda Lowe RN Position: [facility] RN Member Role: Primary Care Nurse Name: Ghazal Ta RN Position: S RN Member Role: Primary Care Nurse Name: Lima Bennett RN Position: [facility] RN Member Role: Primary Care Nurse Name: Karen Farias RN Position: S RN Member Role: Primary Care Nurse Name: Akil Zelaya RN Position: [facility] RN Member Role: Primary Care Nurse Name: Agnes Mccann RN Position: [facility] RN Member Role: Primary Care Nurse Name: Roseann Sullivan RN Position: [facility] RN Member Role: Primary Care Nurse Name: Ebony Victoria NP Position: [facility] Associate Professional Member Role: Lifetime Consulting Provider Address: Address: [address] [place] [address] Name: Rosalba Ugalde RN Position: [facility] RN Member Role: Primary Care Nurse Name: Juan Mondragon DO Position: [facility] Physician (General Medicine) Member Role: PCP Address: Address: [address] [place] [address] Name: Eva Holguin Position: [facility] RN Member Role: Primary Care Nurse Name: Federico Conroy RN Position: [facility] RN Member Role: Primary Care Nurse Name: Flori Lilly RN Position: [facility] RN Member Role: Primary Care Nurse Name: Joseline Malin RN Position: [facility] RN Member Role: Primary Care Nurse Name: Madeline Wren RN Position: [facility] RN Member Role: Primary Care Nurse Name: Autumn Montgomery RN Position: [facility] RN Member Role: Primary Care Nurse Name: Brittny Luna RN Position: [facility] RN Member Role: Primary Care Nurse Name: Selena Reeves RN Position: [facility] RN Member Role: Primary Care Nurse Care Team Related Persons Name: GABBIE KUO Address: home [address] [place] [address] UM Name: BRANDI KUO
--- OUTSIDE RECORDS SUMMARY | 2024-03-29 12:00 | XMS_ITS | Continuity of Care Document ---
Author Organization [facility] Address [address] [place] [id number]- Care Team Providers Care Pocketbook Maker Name Role Phone Juan Mondragon DO Primary Care Physician [place] [facility] [place]): [place]14[place]23 - 09/21/23 [facility] [address] [place] [id number] Attending Physician: Shantelle DIALLO, Nan Means Admitting Physician: Shantelle IDALLO, Nan Means Referring Physician: Juan Mondragon DO [...] Maintenance, 04/15/22 12:39:00 EDT,Route to Pharmacy Electronically, [facility], Partial fill upon patient [...] capsule, 0 Refills, Maintenance, 07/13/23 9:01:00EST, Capsule, [id number], Partial fill upon patient request if the [...] Refills, Maintenance, 04/15/22 12:40:00 EDT, ER Capsule, [facility], Partial fill upon patient request if the prescription is for a schedule II opioid drug., 183, cm, ... Start Date: 04/15/22 Status: Ordered physical therapy physical therapy, See Instructions, # 1 each, Refills 0, Tot. Refills 0, Maintenance, left BKA, gait and balance training using prosthesis, 09/14/23 9:58:00 EST, Supply Start Date: 09/14/23 Status: Ordered stump dragline mechanic stump dragline mechanic, See Instructions, # 1 each, Refills 0, [...] oldest [Reference Range]: 1 Height 182 cm (09/14/23 9:43 AM) Weight 136.2 kg (09/14/23 9:43 AM) Oxygen Saturation [94-100 %] 97 % (09/14/23 9:43 AM) Pulse Rate [55-90 bpm] 84 bpm (09/14/23 9:43 AM) Body Mass Index [18.5-24.99 kg/m2] 41.12 kg/m2 *>HHI* (09/14/23 9:43 AM) Blood Pressure [90-138/55-84 mm Hg] 110/ 50mm Hg (09/14/23 9:43 AM) Mode of Delivery (Oxygen) Room air (09/14/23 9:43 AM) Blood pressure sites Arm, left (09/14/23 9:43 AM) Weight Obtained Via Patient/family state d (09/14/23 9:43 AM) Social History Social History Type Response Tobacco Use: pt denies. Sex Note * Sarah Leal: PERFORM, SIGN, VERIFY Event Display: Patient Education/Instruction Authored Date: [id number] [facility] [address] Clinical Summary Name MARINO KUO Age 48 Years 1975 PCP Juan Mondragon DO PCP Visit Date 09/14/2023 09:30:00 Additional Instructions: Scheduled Appointments?? Future Appointments ?[facility] ?Phone:??--?Fax:??-- ?Appt. Date:??10/27/2023?8:15 AM ?Scheduled Provider:??Omar WIGGINS , Jim Follow-Up Instructions ?? With: Address: When: Shantelle DIALLO, Nan Means Comments: 4??months in person appointment, no scans needed Diagnosis Medications: Please continue your medications until treatment is completed or stopped by your provider. Discuss any questions related to medications with your provider. New Medications - Miscellaneous Rx (left leg prosthesis) Dx: left BKA, K3. Refills: 0. Next Dose: Miscellaneous Rx (physical therapy) left BKA, gait and balance training using prosthesis. Refills: 0. Next Dose: Medications to Continue [...] 04/16. Refills: 0. Next Dose: Miscellaneous Rx (stump dragline mechanic) Dx: left BKA. Refills: 0. Next Dose: Allergy Info:?? vancomycin; doxycycline Medications Given This Visit Future Orders ?No future orders Vital Signs Height 182 cm Weight 136.2 kg BMI 41.12 kg/m2 Blood Pressure 110 mm Hg/50 mm Hg Temperature Pulse Rate 84 bpm Respiratory Rate 02 Sat Mode of Delivery 97 %/Room air You can now view a summary of your hospital visit from the comfort of your home through a free online portal called [employer]. [employer] is a website that allows you to securely view your medical information including discharge summary, medications and follow-up visits. ??You can alsosend a secure electronic message to your doctor???s office to request appointments, renew medications or just ask a question. You can enroll at [email or web address] or register during your next office [...] primary care provider, you may find a [facility] provider by calling [facility] [employer] [facility] at [phone]. [facility], in keeping with [facility] guidance, no longer requires face masks for [...] Team Personnel Name: Matilda Lowe RN Position: [facility] RN Member Role: Primary Care Nurse Name: Ghazal Ta RN Position: [facility] RN Member Role: Primary Care Nurse Name: Lima Bennett RN Position: [facility] RN Member Role: Primary Care Nurse Name: Karen Farias RN Position: [facility] RN Member Role: Primary Care Nurse Name: Akil Zelaya RN Position: [facility] RN Member Role: Primary Care Nurse Name: Agnes Mccann RN Position: [facility] RN Member Role: Primary Care Nurse Name: Roseann Sullivan RN Position: [facility] RN Member Role: Primary Care Nurse Name: Ebony Victoria NP Position: [facility] Associate Professional Member Role: Lifetime Consulting Provider Address: Address: [address] [place] [address] Name: Rosalba Ugalde RN Position: [facility] RN Member Role: Primary Care Nurse Name: Juan Mondragon DO Position: [facility] Physician (General Medicine) Member Role: PCP Address: Address: [address] [place] [address] Name: Eva Holguin Position: [facility] RN Member Role: Primary Care Nurse Name: Federico Conroy RN Position: [facility] RN Member Role: Primary Care Nurse Name: Flori Lilly RN Position: [facility] RN Member Role: Primary Care Nurse Name: Joseline Malin RN Position: [facility] RN Member Role: Primary Care Nurse Name: Madeline Wren RN Position: S RN Member Role: Primary Care Nurse Name: Autumn Montgomery RN Position: S RN Member Role: Primary Care Nurse Name: Brittny Luna RN Position: [facility] RN Member Role: Primary Care Nurse Name: Selena Reeves RN Position: [facility] RN Member Role: Primary Care Nurse Care Team Related Persons Name: GABBIE KUO Address: [place] [id number] Name: BRANDI KUO
--- OUTSIDE RECORDS SUMMARY | 2024-03-29 12:00 | XMS_ITS | Continuity of Care Document ---
Author Organization [facility] Address [address] [place] [id number]- Care Team Providers Care Marzipan Maker Name Role Phone Alanna MENDEZJuan Amparo Primary Care Physician Encounter [facility] [place] Date(s): 07/20/23 - 08/19/23 [facility] [address] [place] [id number] Allergies, Adverse Reactions, Alerts Substance Reaction Severity [...] Maintenance, 04/15/22 12:39:00 EDT,Route to Pharmacy Electronically, [facility], Partial fill upon patient [...] capsule, 0 Refills, Maintenance, 07/13/23 9:01:00EST, Capsule, [id number], Partial fill upon patient request if the [...] Refills, Maintenance, 04/15/22 12:40:00 EDT, ER Capsule, [facility], Partial fill upon patient [...] Care Nurse Name: Ghazal Ta RN Position: [facility] RN Member Role: Primary Care Nurse Name: Marissa Cárdenas RN Position: [facility] RN Member Role: Primary Care Nurse Name: Lima Bennett RN Position: [facility] RN Member Role: Primary Care Nurse Name: Karen Farias RN Position: [facility] RN [...] Member Role: Lifetime Consulting Provider Address: Address: [address] [place] [id number] Name: Rosalba Ugalde RN Position: [facility] RN Member Role: Primary Care Nurse Name: Juan Mondragon DO Position: [facility] Physician (General Medicine) Member Role: PCP Address: Address: [address] [place] [id number] Name: Eva Holguin Position: S RN Member [...] Related Persons Name: GABBIE KUO Address: home [address] [place] [address] Name: BRANDI KUO
--- OUTSIDE RECORDS SUMMARY | 2024-03-29 12:00 | XMS_ITS | Continuity of Care Document ---
Author Organization [facility] Address Unknown Care Team Providers Care Jet Engine Mechanic Name Role Phone Doroteo Wagoner MD Primary Care Physician Encounter [facility] [place] Date(s): 05/25/21 - 06/24/21 [facility] Attending Physician: Deb Barber Admitting Physician: Deb Barber Referring Physician: Deb Barber Allergies, Adverse Reactions, Alerts Substance Reaction Severity Status vancomycin Persistent Severe Active Medications ammonium lactate 12% topical cream 1 application, Topically, 2 times a day, Apply to intact skin, # 140 Gm, 1 Refills, Maintenance, 05/25/21 13:00:00 EDT, Cream, [id number], Partial fill upon patient request if the [...] Start Date: 12/05/18 Status: Ordered nystatin topical 026432 u/gm powder 1 application, Topically, 2 times a day, # 15 Gm, 0 Refills, Maintenance, 02/23/21 21:46:00 EDT, Powder, [facility][id number], Partial fill upon patient request if the prescription is for a schedule II opioid drug., 1 application Topically 2 ti... Start Date: 02/23/21 Status: Ordered simvastatin 40 mg oral tablet 40 mg, 1, tablet, By Mouth, Daily at bedtime, Refills 0, Maintenance, 12/05/18 18:53:37 EDT Start Date: 12/05/18 Status: Ordered Problem List Condition Effective Dates Status Health Status Inform ant Bacterial cellulitis(Confirmed) Active Social History Social History Type Response Smoking Status Never (less than 100 in lifetime) entered on: 06/23/20 Sex
[2024-03-29 12:32] LABS: MANUAL DIFF FLAG NO
[2024-03-29 12:37] LABS: Basophils Absolute Auto 0.1 X10*3/uL (0.0-0.2); Basophils Percent Auto 0.9 % (0-2); Eosinophils Absolute Auto 0.3 X10*3/uL (0.0-0.4); Hematocrit 46.3 % (42.0-52.0); Imm Gran Abs Auto 0.06 X10*3/uL (0.00-0.03); Imm Gran Pct Auto 0.6 % (0.0-0.4); Lymphocytes Absolute Auto 2.2 X10*3/uL (1.2-4.9); Mean Corpuscular HGB Conc 32.4 g/dl (31.0-36.0); Mean Corpuscular Volume 89.6 fL (80.0-98.0); Mean Platelet Volume 8.8 fL (9.4-12.4); Monocytes Absolute Auto 0.6 X10*3/uL (0.1-1.2); Monocytes Percent Auto 5.7 % (2-11); Neutrophils Absolute Auto 6.6 x10*3/uL (2.0-8.3); Neutrophils Percent Auto 67.8 % (45-73); Platelet Count 258 X10*3/uL (160-400); Red Blood Count 5.17 X10*6/uL (4.60-5.80); Red Cell Distribution Width 13.9 % (11.0-16.0); White Blood Count 9.8 X10*3/uL (4.8-10.8)
[2024-03-29 12:38] LABS: INTERNATIONAL NORM RATIO 1.2 (0.9-1.1); Prothrombin Time 14.7 SEC (11.1-13.3)
[2024-03-29 12:41] LABS: Partial Thromboplastin Time 36.3 SEC (26.0-36.8)
[2024-03-29 12:53] LABS: Anion Gap 12 (12-20); Blood Urea Nitrogen 13 mg/dL (9-16); Carbon Dioxide 27 mmol/L (22-29); Chloride 104 mmol/L (96-108); Creatinine Clr Calc Pharmacy 157.3; Estimated Glomerular Filt Rate > 60; Glucose Random 144 mg/dL (60-115); Potassium 4.5 mmol/L (3.3-5.1); Sodium 138 mmol/L (135-145)
--- NOTE | 2024-03-29 13:24 | ED_ITS ---
HPI - Chest Pain General Chief Complaint: Chest Pain Stated Complaint: CHEST PAIN Time Seen by Provider: 03/29/24 12:07 History of Present Illness ED Provider: Dr. Haynes HPI narrative: 49 y/o M patient; PMH T1DM, left leg BKA, CAD (cardiac cath @ [facility] with PCI to RCA), hx NSTEMI, HTN, HLD; presents from physical therapy with significant central chest pain radiating into his epigastric region. The patient states he thinks this pain was related to drinking crystal light. He has noticed similar pain before when drinking crystal light. Today he drank it prior to therapy, then performed stretching and noticed the pain was travelling into his stomach. He stopped physical therapy and the pain resolved however they recommended he be evaluated in the emergency department. He denies any associated symptoms such as nausea/vomiting, diaphoresis, syncope. The patient in 2021 was referred for CABG but due to significant risk factors was deemed not an ideal candidate. He was noted to have severe disease to LAD. Plan was for aggressive medical management. Cardioloist: Dr. Alexandre. Related Data Allergies Allergy/AdvReac Type Severity Reaction Status Date / Time doxycycline Allergy Rash Verified 03/29/24 10:54 vancomycin Allergy Anaphylaxis Verified 03/29/24 10:54 Review of Systems 2 Review of Systems: Yes all other systems are reviewed and are negative Neurologic: Denies Sensory deficit (Neuro) [facility] Past Medical History Attestation statement: The following information was validated with the patient. Source: old records reviewed Social History Social History Smoked in Last 30 Days: No Use of substances other than those prescribed or required for medical reasons: No Advance Directives: No Advance Directives Information Provided: Yes Physical Exam 2 Vital Signs: Vital Signs: Last Vital Signs Temp 97.6 F 03/29/24 10:55 Pulse 69 03/29/24 13:58 Resp 16 03/29/24 13:58 BP 137/53 L 03/29/24 13:58 Pulse Ox 99 03/29/24 13:58 O2 Del Method Room Air 03/29/24 13:58 BMI result Body Mass Index 44.2 The patient is afebrile and hemodynamically stable Const: General: cooperative and comfortable HEENT: Head: Yes normal to inspection and Yes atraumatic Eyes: General: appearance normal, both eyes and all related structures P upils: Equal, round and reactive pupils present EOM: EOMs intact bilaterally Neck: Neck: Yes normal visual inspection, Yes full ROM, Yes supple and No tender Chest: Chest palpation & inspection: normal inspection of the chest and normal palpation of entire chest wall Resp: Effort & Inspection: normal respiratory effort, able to speak in complete sentences, no cough and no respiratory distress Auscultation: clear to auscultation bilaterally Cardio: Rate: regular rate Rhythm: regular rhythm Peripheral pulses: P eripheral pulses 2+ throughout GI: Other: Abdomen obese Inspection: No Abdominal wall edema and No distended Palpation (GI): S oft to palpation, not firm, nontender, no guarding and not rigid A uscultation: normal bowel sounds Back/Spine/Pelvis: Back: No back tenderness Neuro: Cranial nerves: Yes Equal, round and reactive pupils present C ognition (Neuro): normal cognition Motor exam (neuro): 5/5 motor strength present throughout Sensory Exam: No Sensory deficit (Neuro) Extrem: Other: Left BKA Course Course Course Narrative: Patient is afebrile and hemodynamically stable. ACS versus GERD most likely. Will obtain cardiac markers and EKG. EKG NSR 84BPM without ischemic changes. Initial troponin 5. Remainder of labs unremarkable. Patient denies any current chest pain, SOB, nausea/vomiting. Will obtain repeat troponin, EKG, and speak with patient's project portfolio analyst. Provided patient's AM ASA and Metoprolol which he had missed this morning. Reevaluation(s) Reevaluation #1: 2nd troponin negative. Repeat EKG reassuring. CXR unremarkable. Multiple attempts to reach patient's project portfolio analyst Dr. Alexandre without success. Patient's presentation less likely ACS given x2 negative flat troponins. Patient has remained chest pain free during ED observation. Suspect symptoms more likely 2/2 to GERD. Plan: Discharge to home with PCP and Cardiology Condition: Stable Medications Administered Discontinued Medications Generic Name Dose Route Start Last Admin Trade Name Freq PRN Reason Stop Dose Admin Aspirin 81 mg 03/29/24 13:42 03/29/24 13:56 Aspirin 81 Mg Tab.Chew PO 03/29/24 13:43 81 mg ONCE ONE Administration Metoprolol Succinate 50 mg 03/29/24 13:42 03/29/24 13:56 Metoprolol Succinate Er 50 Mg Tab.Er.24h PO 03/29/24 13:43 50 mg ONCE ONE Administration Protocol Medical Decision Making Lab Data 03/29/24 12:27 03/29/24 12:27 Labs: Lab Results 03/29/24 03/29/24 Range/Units 12:27 14:46 WBC 9.8 (4.8-10.8) X10*3/uL RBC 5.17 (4.60-5.80) X10*6/uL Hgb 15.0 (14.0-18.0) g/dl Hct 46.3 (42.0-52.0) % MCV 89.6 (80.0-98.0) fL MCH 29.0 (27.0-33.0) pg MCHC 32.4 (31.0-36.0) g/dl RDW 13.9 (11.0-16.0) % Plt Count 258 (160-400) X10*3/uL MPV 8.8 L (9.4-12.4) fL Immature Gran % (Auto) 0.6 H (0.0-0.4) % Neut % (Auto) 67.8 (45-73) % Lymph % (Auto) 22.0 (20-40) % [place] % (Auto) 5.7 (2-11) % Eos % (Auto) 3.0 (0-4) % Baso % (Auto) 0.9 (0-2) % Lymph # (Auto) 2.2 (1.2-4.9) X10*3/uL [place] # (Auto) 0.6 (0.1-1.2) X10*3/uL Eos # (Auto) 0.3 (0.0-0.4) X10*3/uL Baso # (Auto) 0.1 (0.0-0.2) X10*3/uL Abs Immat Gran (auto) 0.06 H (0.00-0.03) X10*3/uL Absolute Neuts (auto) 6.6 (2.0-8.3) x10*3/uL Absolute Nucleated RBC 0.000 (0.0-0.012) X10*3/uL Nucleated RBC % (auto) 0.0 (0.0-0.2) /100WBC PT 14.7 H (11.1-13.3) SEC INR 1.2 H (0.9-1.1) APTT 36.3 (26.0-36.8) SEC Sodium 138 (135-145) mmol/L Potassium 4.5 (3.3-5.1) mmol/L Chloride 104 (96-108) mmol/L Carbon Dioxide 27 (22-29) mmol/L Anion Gap 12 (12-20) BUN 13 (9-16) mg/dL Creatinine 0.84 (0.5-1.4) mg/dL Estim Creat Clear Calc 157.3 Estimated GFR > 60 Random Glucose 144 H (60-115) mg/dL Calcium 10.0 (8.4-10.2) mg/dL Troponin I High Sens 5.0 4.5 (<3.5-35.0) ng/L Independent Interpretation I performed an independent interpretation of an: EKG Interpretation: NSR 84BPM without ischemic changes Repeat EKG: NSR 64BPM without ischemic changes Radiology Impression Discussion of test interpretation with radiology: I have reviewed the radiologist's reading. Radiologist Impression: EXAMINATION: XR CHEST 2:29 PM CLINICAL INFORMATION: Chest pain at physical therapy COMPARISON: None available. TECHNIQUE: AP portable view of the chest was obtained. FINDINGS: No significant abnormality is noted involving the heart, lungs, mediastinum, bony thorax or soft tissues. XR/XR chest 1V IMPRESSION: Unremarkable examination. Discharge Plan Discharge Clinical Impression: Chest pain Patient Disposition: Home, Self-Care Instructions: Chest Pain (DC) Additional Instructions: As we discussed, you were seen today for chest pain that has improved. Two enzymes of your heart did now show damage. Your EKG of your heart rhythm was also normal. Recommend you follow up with your PCP and Six Sigma Black Trainer within the next 1 - 2 days. Return to the emergency department for: Worsening chest pain Difficulty breathing Passing out Referrals: Rajiv Alexandre MD [Physician] - 2 days Print Language: Micronesian
[2024-03-29] MEDS: Metoprolol Succinate ER 50 MG TAB.ER.24H PO (13:56)
[2024-03-29] MEDS: Aspirin 81 MG TAB.CHEW PO (13:56)
--- NOTE | 2024-03-29 14:28 | ECG_ITS ---
Test Reason : CP Blood Pressure : / mmHG Vent. Rate : 064 BPM Atrial Rate : 064 BPM P-R Int : 182 ms QRS Dur : 082 ms QT Int : 402 ms P-R-T Axes : 045 -46 049 degrees QTc Int : 414 ms Normal sinus rhythm Left axis deviation Septal infarct (cited on or before 29-MAR-2024) Abnormal ECG When compared with ECG of 29-MAR-2024 10:43, No significant change was found Referred By: Gabriela Haynes Electronically Signed By:ANDREW LANGE MD
[2024-03-29 15:11] LABS: Troponin-I High Sensitivity 4.5 ng/L (<3.5-35.0)
== END 2024-03-29 16:34 | disposition home or self-care (01) ==
PROVIDERS: Emergency Provider Emergency Medicine; PCP Internal Medicine
DX: R07.9 Chest pain, unspecified (principal); E10.9 Type 1 diabetes mellitus without complications; I10 Essential (primary) hypertension; E78.5 Hyperlipidemia, unspecified
CPT/HCPCS: 36415; 71045; 80048; 84484; 85025; 85610; 85730; 93005; 99283; 99285

== ENCOUNTER → 2024-03-29 10:44 | Outpatient (BNV) | payer MEDICARE, MEDICAID, SELFPAY | PROVIDERS: Visit Provider Internal Medicine Cardiovascular Disease | DX: R07.9 Chest pain, unspecified (principal); R94.31 Abnormal electrocardiogram [ECG] [EKG] | CPT/HCPCS: 93010 ==

== ENCOUNTER 2024-05-21 11:00 | Outpatient (RCR) | payer MEDICARE, MEDICAID, SELFPAY | END 2024-07-27 09:18 | disposition home or self-care (01) | LOC: HO.PT 11:00 | PROVIDERS: PCP Internal Medicine; Visit Provider Nurse Practitioner Adult Health | DX: Z89.512 Acquired absence of left leg below knee (principal) | CPT/HCPCS: 97014; 97110; 97112; 97116; 97162; 97530; 97535 ==